=== PATIENT | female | born 1995 | race Caucasian/White ===

== ENCOUNTER 2020-10-13 21:15 | Inpatient (IN) | payer OTHER ==
[2020-10-13] MEDS ORDERED: SODIUM CHLORIDE 0.9% 1000 ML 1,000 ML IV ONE (21:34)
--- NOTE | 2020-10-13 21:52 | Emergency Department Report ---
HPI - General Chief Complaint: Altered Mental Status Time Seen by Provider: 10/13/20 21:22 - HPI HPI: This is a 25-year-old female who presents to the emergency department via EMS from home after the patient ingested about 6 ounces of 100% ethylene glycol at around 7 PM this evening. The patient is confused, AAO x1, and therefore a poor historian. Per EMS, the patient took this substance with the intent on harming herself. The patient is unknown to myself and has been to this emergency department only 1 time previously, not for anything related to mental health. Apparently the patient does not have any past medical history. At the time of my examination the patient has moderate tachycardia at 135 bpm but otherwise has no complaints. ED Past Medical Hx - Past Medical History Additional medical history: major depression - Social History Smoking Status: Unknown if ever smoked Substance Use Type: Alcohol - Medications Home Medications: Home Medications Medication Instructions Recorded Confirmed Last Taken Type Cefuroxime Axetil [Ceftin] 500 mg PO Q12H #20 tablet 06/29/13 Unknown Rx Phenazopyridine [Pyridium] 200 mg PO TID #6 tablet 06/29/13 Unknown Rx ED Review of Systems ROS: Stated complaint: SI Other details as noted in HPI Comment: Unobtainable due to pts medical conditions Physical Exam - Physical Exam Vital Signs: Vital Signs 10/13/20 10/13/20 21:22 21:34 Temperature 98.6 F Pulse Rate 136 H Respiratory 18 18 Rate Blood Pressure 157/102 O2 Sat by Pulse 98 Oximetry Physical Exam: GENERAL: The patient is pleasantly confused. HENT: Normocephalic. Atraumatic. Patient has moist mucous membranes. EYES: Extraocular motions are intact. Pupils equal reactive to light bilaterally. NECK: Supple. Trachea is midline. CHEST/LUNGS: Clear to auscultation. There is no respiratory distress noted. HEART/CARDIOVASCULAR: Regular. There is moderate tachycardia. There is no murmur. ABDOMEN: Abdomen is soft, nontender. Patient has normal bowel sounds. There is no abdominal distention. SKIN: Skin is warm and dry. NEURO: The patient is awake and confused, AAO x1 to name only. Cranial nerves II through XII grossly intact. Normal speech. MUSCULOSKELETAL: There is no tenderness or deformity. There is no limitation range of motion. PSYCH: Patient has inappropriate laughter. Oftentimes she is repeating herself. ED Course Vital Signs 10/13/20 06 21:22 21:34 Temperature 98.6 F Pulse Rate 136 H Respiratory 18 18 Rate Blood Pressure 157/102 O2 Sat by Pulse 98 Oximetry - Consultations Consultation #1: 10/13/20 21:50 I spoke with poison control regarding the ethylene glycol ingestion. The instructions given were under the guidance of the garment worker on-call, Dr. Yon Mccall. Above and beyond the normal psychiatric clearance and normal toxicology labs, they have recommended that the patient get an ABG, osmolality, and ethylene glycol level on top of the ethanol level. They have recommended that the patient start receiving fomepizole. The initial dose is 15 mg/kg and 100 mL of normal saline given over 30 minutes. 12 hours later the patient goes on a dose of 10 mg/kg also and 100 mL of normal saline over 30 minutes and this is done every 12 hours x 4 doses. After this time the patient goes back to 15 mg/kg every 12 hours. This goes on until the ethylene glycol level is less than 20 mg/dL. They recommend drawing the ethylene glycol once per day. 10/14/20 00:17 I called back to speak to Dr. Mccall at poison control once I got the laboratory results including ABG. The patient has a pH of 6.984, PCO2 of 10.5 and a bicarb of 2. She has a metabolic acidosis with an anion gap of 35. The patient has been ordered an amp of bicarb and a bicarb drip. Dr. Mccall feels that the patient will require dialysis. Apparently the first 12 hours is the "intoxication phase" and hours 12 through 24-hour when these patients go into "shock." If the patient receives dialysis, the next doses of omeprazole at the 10 mg/kg go down to every 4 hours x 4 doses, before moving back to the 50 mg/kg dose. Consultation #2: 10/14/20 00:31 I spoke to the aprn on-call, Dr. Riggins. He agrees that the patient will need dialysis due to the profound acidosis from the ethylene glycol poisoning/toxicity. He will place dialysis orders to be done as soon as the patient can receive a Vas-Cath. Consultation #3: 10/14/20 01:54 I spoke to the coal feeder operator on-call, Dr. Burris. We discussed the patient's presentation and her initial ABG and we discussed the need for a Vas-Cath placement for emergent dialysis. He asked for a repeat ABG. The second ABG shows some improvement in the acidosis but still shows profound acidosis with a pH of 7.09. No change in the PCO2, bicarb or PO2. Dr. Burris is coming into the emergency department for Vas-Cath placement. - ABG Interpretation Ph: 6.984 PCO2: 10.5 PO2: 131 Bicarbonate: 2.4 ED Medical Decision Making - Lab Data Result diagrams: 10/13/20 21:40 10/13/20 21:40 Lab Results 10/13/20 10/13/20 10/13/20 Range/Units 21:40 21:40 21:40 WBC 22.1 H (4.5-11.0) K/mm3 RBC 5.31 H (3.65-5.03) M/mm3 Hgb 16.3 H (10.1-14.3) gm/dl Hct 51.5 H (30.3-42.9) % MCV 97 (79-97) fl MCH 31 (28-32) pg MCHC 32 (30-34) % RDW 14.3 (13.2-15.2) % Plt Count 496 H (140-440) K/mm3 Add Manual Diff Complete Total Counted 100 Seg Neuts % (Manual) 68.0 (40.0-70.0) % Lymphocytes % (Manual) 23.0 (13.4-35.0) % Monocytes % (Manual) 9.0 H (0.0-7.3) % Nucleated RBC % Not Reportable Seg Neutrophils # Man 15.0 H (1.8-7.7) K/mm3 Band Neutrophils # 0.0 K/mm3 Lymphocytes # (Manual) 5.1 (1.2-5.4) K/mm3 Abs React Lymphs (Man) 0.0 K/mm3 Monocytes # (Manual) 2.0 H (0.0-0.8) K/mm3 Eosinophils # (Manual) 0.0 (0.0-0.4) K/mm3 Basophils # (Manual) 0.0 (0.0-0.1) K/mm3 Metamyelocytes # 0.0 K/mm3 Myelocytes # 0.0 K/mm3 Promyelocytes # 0.0 K/mm3 Blast Cells # 0.0 K/mm3 WBC Morphology Not Reportable Hypersegmented Neuts Not Reportable Hyposegmented Neuts Not Reportable Hypogranular Neuts Not Reportable Smudge Cells Not Reportable Toxic Granulation Not Reportable Toxic Vacuolation Not Reportable Dohle Bodies Not Reportable Pelger-Huet Anomaly Not Reportable Benjy Rods Not Reportable Platelet Estimate Not Reportable Clumped Platelets Not Reportable Plt Clumps, EDTA Not Reportable Large Platelets Not Reportable Giant Platelets Not Reportable Platelet Satelliting Not Reportable Plt Morphology Comment Not Reportable RBC Morphology Normal Dimorphic RBCs Not Reportable Polychromasia Not Reportable Hypochromasia Not Reportable Poikilocytosis Not Reportable Anisocytosis Not Reportable Microcytosis Not Reportable Macrocytosis Not Reportable Spherocytes Not Reportable Pappenheimer Bodies Not Reportable Sickle Cells Not Reportable Target Cells Not Reportable Tear Drop Cells Not Reportable Ovalocytes Not Reportable Helmet Cells Not Reportable [place] Bodies Not Reportable [place] Rings Not Reportable Raissa Cells Not Reportable Bite Cells Not Reportable Crenated Cell Not Reportable Elliptocytes Not Reportable Acanthocytes (Spur) Not Reportable Rouleaux Not Reportable Hemoglobin C Crystals Not Reportable Schistocytes Not Reportable Malaria parasites Not Reportable Koffi Bodies Not Reportable Hem Pathologist Commnt No ABG pH (7.320-7.450) POC ABG pCO2 (32.0-48.0) mmHg POC ABG pO2 (83-108) mmHg POC ABG HCO3 ABG O2 Saturation (0-100) POC ABG Base Excess ABG Hemoglobin (12.0-17.5) ABG Oxyhemoglobin (94-98) ABG Methemoglobin (0.0-1.5) ABG Sodium (136.0-145.0) mmol/L ABG Potassium (3.40-4.50) mmol/L ABG Chloride (98-107) mmol/L ABG Glucose (65-95) mg/dL Carboxyhemoglobin (0.5-1.5) FiO2 % Sodium (137-145) mmol/L Potassium (3.6-5.0) mmol/L Chloride (98-107) mmol/L Carbon Dioxide (22-30) mmol/L Anion Gap mmol/L BUN (7-17) mg/dL Creatinine (0.6-1.2) mg/dL Estimated GFR ml/min BUN/Creatinine Ratio % Glucose (65-100) mg/dL Osmolality Mosm/kg Calcium (8.4-10.2) mg/dL Total Bilirubin (0.1-1.2) mg/dL AST (5-40) units/L ALT (7-56) units/L Alkaline Phosphatase (35-129) units/L Total Protein (6.3-8.2) g/dL Albumin (3.9-5) g/dL Albumin/Globulin Ratio % HCG, Qual (Negative) Arterial Blood Glucose (65-95) mg/dL Arterial Blood Ionized Calcium (4.6-5.3) mg/dL Salicylates < 0.3 L (2.8-20.0) mg/dL Acetaminophen 5.0 L (10.0-30.0) ug/mL Plasma/Serum Alcohol (0-0.07) % 10/13/20 10/13/20 10/13/20 Range/Units 21:40 21:40 21:40 WBC (4.5-11.0) K/mm3 RBC (3.65-5.03) M/mm3 Hgb (10.1-14.3) gm/dl Hct (30.3-42.9) % MCV (79-97) fl MCH (28-32) pg MCHC (30-34) % RDW (13.2-15.2) % Plt Count (140-440) K/mm3 Add Manual Diff Total Counted Seg Neuts % (Manual) (40.0-70.0) % Lymphocytes % (Manual) (13.4-35.0) % Monocytes % (Manual) (0.0-7.3) % Nucleated RBC % Seg Neutrophils # Man (1.8-7.7) K/mm3 Band Neutrophils # K/mm3 Lymphocytes # (Manual) (1.2-5.4) K/mm3 Abs React Lymphs (Man) K/mm3 Monocytes # (Manual) (0.0-0.8) K/mm3 Eosinophils # (Manual) (0.0-0.4) K/mm3 Basophils # (Manual) (0.0-0.1) K/mm3 Metamyelocytes # K/mm3 Myelocytes # K/mm3 Promyelocytes # K/mm3 Blast Cells # K/mm3 WBC Morphology Hypersegmented Neuts Hyposegmented Neuts Hypogranular Neuts Smudge Cells Toxic Granulation Toxic Vacuolation Dohle Bodies Pelger-Huet Anomaly Benjy Rods Platelet Estimate Clumped Platelets Plt Clumps, EDTA Large Platelets Giant Platelets Platelet Satelliting Plt Morphology Comment RBC Morphology Dimorphic RBCs Polychromasia Hypochromasia Poikilocytosis Anisocytosis Microcytosis Macrocytosis Spherocytes Pappenheimer Bodies Sickle Cells Target Cells Tear Drop Cells Ovalocytes Helmet Cells Je[place] Bodies [place] Rings Raissa Cells Bite Cells Crenated Cell Elliptocytes Acanthocytes (Spur) Rouleaux Hemoglobin C Crystals Schistocytes Malaria parasites Koffi Bodies Hem Pathologist Commnt ABG pH (7.320-7.450) POC ABG pCO2 (32.0-48.0) mmHg POC ABG pO2 (83-108) mmHg POC ABG HCO3 ABG O2 Saturation (0-100) POC ABG Base Excess ABG Hemoglobin (12.0-17.5) ABG Oxyhemoglobin (94-98) ABG Methemoglobin (0.0-1.5) ABG Sodium (136.0-145.0) mmol/L ABG Potassium (3.40-4.50) mmol/L ABG Chloride (98-107) mmol/L ABG Glucose (65-95) mg/dL Carboxyhemoglobin (0.5-1.5) FiO2 % Sodium 137 (137-145) mmol/L Potassium 5.6 H (3.6-5.0) mmol/L Chloride 105.3 (98-107) mmol/L Carbon Dioxide < 2.0 L* (22-30) mmol/L Anion Gap 35 mmol/L BUN 4 L (7-17) mg/dL Creatinine 0.8 (0.6-1.2) mg/dL Estimated GFR > 60 ml/min BUN/Creatinine Ratio 5 % Glucose 93 (65-100) mg/dL Osmolality Mosm/kg Calcium 9.9 (8.4-10.2) mg/dL Total Bilirubin < 0.20 (0.1-1.2) mg/dL AST 19 (5-40) units/L ALT 11 (7-56) units/L Alkaline Phosphatase 99 (35-129) units/L Total Protein 9.1 H (6.3-8.2) g/dL Albumin 5.8 H (3.9-5) g/dL Albumin/Globulin Ratio 1.8 % HCG, Qual Negative (Negative) Arterial Blood Glucose (65-95) mg/dL Arterial Blood Ionized Calcium (4.6-5.3) mg/dL Salicylates (2.8-20.0) mg/dL Acetaminophen (10.0-30.0) ug/mL Plasma/Serum Alcohol < 0.01 (0-0.07) % 10/13/20 10/13/20 Range/Units 21:46 22:07 WBC (4.5-11.0) K/mm3 RBC (3.65-5.03) M/mm3 Hgb (10.1-14.3) gm/dl Hct (30.3-42.9) % MCV (79-97) fl MCH (28-32) pg MCHC (30-34) % RDW (13.2-15.2) % Plt Count (140-440) K/mm3 Add Manual Diff Total Counted Seg Neuts % (Manual) (40.0-70.0) % Lymphocytes % (Manual) (13.4-35.0) % Monocytes % (Manual) (0.0-7.3) % Nucleated RBC % Seg Neutrophils # Man (1.8-7.7) K/mm3 Band Neutrophils # K/mm3 Lymphocytes # (Manual) (1.2-5.4) K/mm3 Abs React Lymphs (Man) K/mm3 Monocytes # (Manual) (0.0-0.8) K/mm3 Eosinophils # (Manual) (0.0-0.4) K/mm3 Basophils # (Manual) (0.0-0.1) K/mm3 Metamyelocytes # K/mm3 Myelocytes # K/mm3 Promyelocytes # K/mm3 Blast Cells # K/mm3 WBC Morphology Hypersegmented Neuts Hyposegmented Neuts Hypogranular Neuts Smudge Cells Toxic Granulation Toxic Vacuolation Dohle Bodies Pelger-Huet Anomaly Benjy Rods Platelet Estimate Clumped Platelets Plt Clumps, EDTA Large Platelets Giant Platelets Platelet Satelliting Plt Morphology Comment RBC Morphology Dimorphic RBCs Polychromasia Hypochromasia Poikilocytosis Anisocytosis Microcytosis Macrocytosis Spherocytes Pappenheimer Bodies Sickle Cells Target Cells Tear Drop Cells Ovalocytes Helmet Cells Jeong-[place] Bodies [place] Rings Raissa Cells Bite Cells Crenated Cell Elliptocytes Acanthocytes (Spur) Rouleaux Hemoglobin C Crystals Schistocytes Malaria parasites Koffi Bodies Hem Pathologist Commnt ABG pH 6.984 L (7.320-7.450) POC ABG pCO2 10.5 L (32.0-48.0) mmHg POC ABG pO2 131.9 H (83-108) mmHg POC ABG HCO3 2.4 ABG O2 Saturation 98.1 (0-100) POC ABG Base Excess -27.2 ABG Hemoglobin 15.8 (12.0-17.5) ABG Oxyhemoglobin 97.5 (94-98) ABG Methemoglobin 0.2 (0.0-1.5) ABG Sodium 142.3 (136.0-145.0) mmol/L ABG Potassium 5.4 H (3.40-4.50) mmol/L ABG Chloride 114.0 H (98-107) mmol/L ABG Glucose 97 H (65-95) mg/dL Carboxyhemoglobin 0.4 L (0.5-1.5) FiO2 % 21.0 Sodium (137-145) mmol/L Potassium (3.6-5.0) mmol/L Chloride (98-107) mmol/L Carbon Dioxide (22-30) mmol/L Anion Gap mmol/L BUN (7-17) mg/dL Creatinine (0.6-1.2) mg/dL Estimated GFR ml/min BUN/Creatinine Ratio % Glucose (65-100) mg/dL Osmolality 320 Mosm/kg Calcium (8.4-10.2) mg/dL Total Bilirubin (0.1-1.2) mg/dL AST (5-40) units/L ALT (7-56) units/L Alkaline Phosphatase (35-129) units/L Total Protein (6.3-8.2) g/dL Albumin (3.9-5) g/dL Albumin/Globulin Ratio % HCG, Qual (Negative) Arterial Blood Glucose 97 H (65-95) mg/dL Arterial Blood Ionized Calcium 5.3 (4.6-5.3) mg/dL Salicylates (2.8-20.0) mg/dL Acetaminophen (10.0-30.0) ug/mL Plasma/Serum Alcohol (0-0.07) % - EKG Data -: EKG Interpreted by Me EKG shows normal: sinus rhythm, axis, intervals, QRS complexes, ST-T waves Rate: tachycardia (136 bpm) - EKG Data When compared to previous EKG there are: previous EKG unavailable Interpretation: other (Sinus tachycardia at 136 bpm, normal axis, normal intervals, no ST elevation myocardial infarction.) - Medical Decision Making This patient presents to the emergency department after she intentionally drank about 6 ounces of 100% ethylene glycol. For this reason the patient has been made a 1013 and placed on an ED hold. Soon as the patient arrived in the emergency department and I found out what she had consumed, I spoke with poison control. Their recommendations are in the chart and the patient was started on fomepizole. Labs show a leukocytosis of 22,000 and hyperkalemia with a potassium of 5.6. The patient has a bicarb level of 2 and an elevated anion gap of 35. The initial ABG shows a significant metabolic acidosis with a pH of 6.98 and a bicarb of 2. The patient was given an amp of sodium bicarbonate followed by a bicarb drip. Once I got the lab results back, I once again spoke with poison control and directly with the garment worker. The decision was made that the patient should get dialysis secondary to the profound metabolic acidosis. Nephrology was contacted and consulted. The coal feeder operator came into the emergency department and placed a Vas-Cath. The patient is being sent for emergent dialysis. She will be admitted to the ICU and was accepted for admission by the hospitalist, Dr. Ferguson. Critical Care Time: Yes Critical care time in (mins) excluding proc time.: 120 Critical care attestation.: If time is entered above; I have spent that time in minutes in the direct care of this critically ill patient, excluding procedure time. Critical care time was spent on this patient in doing her initial evaluation, multiple ree valuations, ordering and interpretation of labs and imaging, discussion with poison control and the garment worker, ordering of fomepizole as the antidote, sodium bicarbonate drip for the profound metabolic acidosis, discussion with the nephrology and ICU services. Critical Care Time: 120 minutes ED Disposition Clinical Impression: Metabolic acidosis due to ethylene glycol, Hyperkalemia, Metabolic encephalopathy Ethylene glycol poisoning Qualifiers: Encounter type: initial encounter Injury intent: intentional self-harm Qualified Code(s): T52.8X2A - Toxic effect of other organic solvents, intentional self-harm, initial encounter Overdose Qualifiers: Encounter type: initial encounter Injury intent: intentional self-harm Qualified Code(s): T50.902A - Poisoning by unspecified drugs, medicaments and biological substances, intentional self-harm, initial encounter Disposition: DC-09 OP ADMIT IP TO THIS HOSP Is pt being admited?: Yes Condition: Serious Time of Disposition: 23:42
[2020-10-13 21:55] LABS: Hematocrit 51.5 % (30.3-42.9); Hemoglobin 16.3 gm/dl (10.1-14.3); Mean Corpuscular HGB Conc 32 % (30-34); Mean Corpuscular Volume 97 fl (79-97); Platelet Count 496 K/mm3 (140-440); Red Blood Count 5.31 M/mm3 (3.65-5.03); Red Cell Distribution Width 14.3 % (13.2-15.2)
[2020-10-13] MEDS ORDERED: SODIUM CHLORIDE 0.9% IV ONE (22:00)
[2020-10-13] MEDS ORDERED: FOMEPIZOLEV IV ONE (22:00)
[2020-10-13 22:14] LABS: Alanine Aminotransferase 11 units/L (7-56); Albumin 5.8 g/dL (3.9-5); BUN/Creatinine Ratio 5; Blood Urea Nitrogen 4 mg/dL (7-17); Calcium 9.9 mg/dL (8.4-10.2); Hemolysis Index 17
[2020-10-13 23:19] LABS: Total Cells Counted 100
[2020-10-13 23:20] LABS: RBC Morphology Normal
[2020-10-13] MEDS ORDERED: SODIUM BICARBONATE 150 MEQ in DEXTROSE 5% IN WATER 1,000 ML IV ONE (23:33)
[2020-10-13] MEDS ORDERED: SODIUM BICARB 8.4% 50 MEQ/50 ML SYRINGE IV ONE (23:54)
[2020-10-14] MEDS ORDERED: SODIUM CHLORIDE 0.9% 100 ML IV PRN (00:31)
--- NOTE | 2020-10-14 00:40 | History and Physical Report ---
History of Present Illness Date of examination: 10/14/20 Date of admission: 10/13/20 23:42 Chief complaint: Altered mental status Drug overdose History of present illness: 25-year-old female with no significant past medical history was brought to the emergency room because patient ingested about 6 ounces of 100% ethylene glycol at around 7 PM this evening. The patient is confused, AAO x1, and therefore a poor historian. Per EMS, the patient took this substance with the intent on harming herself. The patient is unknown to myself and has been to this emergen cy department only 1 time previously, not for anything related to mental health. Apparently the patient does not have any past medical history. At the time of my examination the patient has moderate tachycardia at 135 bpm but otherwise has no complaints. Medications and Allergies Allergies Allergy/AdvReac Type Severity Reaction Status Date / Time No Known Allergies Allergy Unverified 06/29/13 00:00 Home Medications Medication Instructions Recorded Confirmed Last Taken Type Cefuroxime Axetil [Ceftin] 500 mg PO Q12H #20 tablet 06/29/13 Unknown Rx Phenazopyridine [Pyridium] 200 mg PO TID #6 tablet 06/29/13 Unknown Rx Active Meds: Active Medications Acetaminophen (Acetaminophen 325 Mg Tab) 650 mg PO Q4H PRN PRN Reason: Pain MILD(1-3)/Fever >100.5/TAYLOR Famotidine (Famotidine 20 Mg/2 Ml Inj) 20 mg IV BID MINH Heparin Sodium (Porcine) (Heparin 5,000 Unit/1 Ml Vial) 5,000 unit SUB-Q Q8HR MINH Sodium Chloride (Nacl 0.9% 1000 Ml) 1,000 mls @ 125 mls/hr IV ONCE ONE Stop: 10/14/20 05:33 Last Admin: 10/13/20 22:03 Dose: 125 mls/hr Documented by: Fomepizole 720 mg/ Sodium (Chloride) 100.72 mls @ 200 mls/hr IV Q12H MINH Stop: 10/15/20 23:31 Sodium Bicarbonate 150 meq/ (Dextrose) 1,150 mls @ 75 mls/hr IV DIRECT ONE Stop: 10/14/20 14:52 Sodium Chloride (Nacl 0.9%) 100 mls @ 999 mls/hr IV PHANI PRN PRN Reason: Hypotension Dextrose/Sodium Chloride (D5ns) 1,000 mls @ 100 mls/hr IV DIRECT MINH Ceftriaxone Sodium (Rocephin/Ns 2 Gm/100 Ml) 2 gm in 100 mls @ 200 mls/hr IV Q24H [facility]; Protocol Ondansetron HCl (Ondansetron 4 Mg/2 Ml Inj) 4 mg IV Q8H PRN PRN Reason: Nausea And Vomiting Sodium Chloride (Sodium Chloride 0.9% 10 Ml Flush Syringe) 10 ml IV BID MINH Sodium Chloride (Sodium Chloride 0.9% 10 Ml Flush Syringe) 10 ml IV PRN PRN PRN Reason: LINE FLUSH Review of Systems Neurological: confusion Exam - Constitutional Vitals: Temp Pulse Resp BP Pulse Ox 98.6 F 136 H 18 157/102 98 10/13/20 21:22 10/13/20 21:22 10/13/20 21:34 10/13/20 21:22 10/13/20 21:22 General appearance: Present: no acute distress, well-nourished - EENT Eyes: Present: PERRL ENT: hearing intact, clear oral mucosa - Neck Neck: Present: supple, normal ROM - Respiratory Respiratory effort: normal Respiratory: bilateral: CTA - Cardiovascular Heart Sounds: Present: S1 & S2. Absent: rub, click - Extremities Extremities: pulses symmetrical, No edema Peripheral Pulses: within normal limits - Abdominal General gastrointestinal: Present: soft, non-tender, non-distended, normal bowel sounds Female genitourinary: Present: normal - Integumentary Integumentary: Present: clear, warm, dry - Musculoskeletal Musculoskeletal: gait normal, strength equal bilaterally - Neurologic Neurologic: CNII-XII intact, moves all extremities, other (Patient is confused but awake) Results - Labs CBC & Chem 7: 10/13/20 21:40 10/13/20 21:40 Labs: Laboratory Last Values WBC 22.1 K/mm3 (4.5-11.0) H 10/13/20 21:40 RBC 5.31 M/mm3 (3.65-5.03) H 10/13/20 21:40 Hgb 16.3 gm/dl (10.1-14.3) H 10/13/20 21:40 Hct 51.5 % (30.3-42.9) H 10/13/20 21:40 MCV 97 fl (79-97) 10/13/20 21:40 MCH 31 pg (28-32) 10/13/20 21:40 MCHC 32 % (30-34) 10/13/20 21:40 RDW 14.3 % (13.2-15.2) 10/13/20 21:40 Plt Count 496 K/mm3 (140-440) H 10/13/20 21:40 Add Manual Diff Complete 10/13/20 21:40 Total Counted 100 10/13/20 21:40 Seg Neuts % (Manual) 68.0 % (40.0-70.0) 10/13/20 21:40 Lymphocytes % (Manual) 23.0 % (13.4-35.0) 10/13/20 21:40 Monocytes % (Manual) 9.0 % (0.0-7.3) H 10/13/20 21:40 Nucleated RBC % Not Reportable 10/13/20 21:40 Seg Neutrophils # Man 15.0 K/mm3 (1.8-7.7) H 10/13/20 21:40 Band Neutrophils # 0.0 K/mm3 10/13/20 21:40 Lymphocytes # (Manual) 5.1 K/mm3 (1.2-5.4) 10/13/20 21:40 Abs React Lymphs (Man) 0.0 K/mm3 10/13/20 21:40 Monocytes # (Manual) 2.0 K/mm3 (0.0-0.8) H 10/13/20 21:40 Eosinophils # (Manual) 0.0 K/mm3 (0.0-0.4) 10/13/20 21:40 Basophils # (Manual) 0.0 K/mm3 (0.0-0.1) 10/13/20 21:40 Metamyelocytes # 0.0 K/mm3 10/13/20 21:40 Myelocytes # 0.0 K/mm3 10/13/20 21:40 Promyelocytes # 0.0 K/mm3 10/13/20 21:40 Blast Cells # 0.0 K/mm3 10/13/20 21:40 WBC Morphology Not Reportable 10/13/20 21:40 Hypersegmented Neuts Not Reportable 10/13/20 21:40 Hyposegmented Neuts Not Reportable 10/13/20 21:40 Hypogranular Neuts Not Reportable 10/13/20 21:40 Smudge Cells Not Reportable 10/13/20 21:40 Toxic Granulation Not Reportable 10/13/20 21:40 Toxic Vacuolation Not Reportable 10/13/20 21:40 Dohle Bodies Not Reportable 10/13/20 21:40 Pelger-Huet Anomaly Not Reportable 10/13/20 21:40 Benjy Rods Not Reportable 10/13/20 21:40 Platelet Estimate Not Reportable 10/13/20 21:40 Clumped Platelets Not Reportable 10/13/20 21:40 Plt Clumps, EDTA Not Reportable 10/13/20 21:40 Large Platelets Not Reportable 10/13/20 21:40 Giant Platelets Not Reportable 10/13/20 21:40 Platelet Satelliting Not Reportable 10/13/20 21:40 Plt Morphology Comment Not Reportable 10/13/20 21:40 RBC Morphology Normal 10/13/20 21:40 Dimorphic RBCs Not Reportable 10/13/20 21:40 Polychromasia Not Reportable 10/13/20 21:40 Hypochromasia Not Reportable 10/13/20 21:40 Poikilocytosis Not Reportable 10/13/20 21:40 Anisocytosis Not Reportable 10/13/20 21:40 Microcytosis Not Reportable 10/13/20 21:40 Macrocytosis Not Reportable 10/13/20 21:40 Spherocytes Not Reportable 10/13/20 21:40 Pappenheimer Bodies Not Reportable 10/13/20 21:40 Sickle Cells Not Reportable 10/13/20 21:40 Target Cells Not Reportable 10/13/20 21:40 Tear Drop Cells Not Reportable 10/13/20 21:40 Ovalocytes Not Reportable 10/13/20 21:40 Helmet Cells Not Reportable 10/13/20 21:40 Jeong-[place] Bodies Not Reportable 10/13/20 21:40 Irwin Rings Not Reportable 10/13/20 21:40 Carlton Cells Not Reportable 10/13/20 21:40 Bite Cells Not Reportable 10/13/20 21:40 Crenated Cell Not Reportable 10/13/20 21:40 Elliptocytes Not Reportable 10/13/20 21:40 Acanthocytes (Spur) Not Reportable 10/13/20 21:40 Rouleaux Not Reportable 10/13/20 21:40 Hemoglobin C Crystals Not Reportable 10/13/20 21:40 Schistocytes Not Reportable 10/13/20 21:40 Malaria parasites Not Reportable 10/13/20 21:40 Koffi Bodies Not Reportable 10/13/20 21:40 Hem Pathologist Commnt No 10/13/20 21:40 ABG pH 6.984 (7.320-7.450) L 10/13/20 22:07 POC ABG pCO2 10.5 mmHg (32.0-48.0) L 10/13/20 22:07 POC ABG pO2 131.9 mmHg (83-108) H 10/13/20 22:07 POC ABG HCO3 2.4 10/13/20 22:07 ABG O2 Saturation 98.1 (0-100) 10/13/20 22:07 POC ABG Base Excess -27.2 10/13/20 22:07 ABG Hemoglobin 15.8 (12.0-17.5) 10/13/20 22:07 ABG Oxyhemoglobin 97.5 (94-98) 10/13/20 22:07 ABG Methemoglobin 0.2 (0.0-1.5) 10/13/20 22:07 ABG Sodium 142.3 mmol/L (136.0-145.0) 10/13/20 22:07 ABG Potassium 5.4 mmol/L (3.40-4.50) H 10/13/20 22:07 ABG Chloride 114.0 mmol/L (98-107) H 10/13/20 22:07 ABG Glucose 97 mg/dL (65-95) H 10/13/20 22:07 Carboxyhemoglobin 0.4 (0.5-1.5) L 10/13/20 22:07 FiO2 % 21.0 10/13/20 22:07 Sodium 137 mmol/L (137-145) 10/13/20 21:40 Potassium 5.6 mmol/L (3.6-5.0) H 10/13/20 21:40 Chloride 105.3 mmol/L (98-107) 10/13/20 21:40 Carbon Dioxide < 2.0 mmol/L (22-30) L* 10/13/20 21:40 Anion Gap 35 mmol/L 10/13/20 21:40 BUN 4 mg/dL (7-17) L 10/13/20 21:40 Creatinine 0.8 mg/dL (0.6-1.2) 10/13/20 21:40 Estimated GFR > 60 ml/min 10/13/20 21:40 BUN/Creatinine Ratio 5 % 10/13/20 21:40 Glucose 93 mg/dL (65-100) 10/13/20 21:40 Osmolality 320 Mosm/kg 10/13/20 21:46 Calcium 9.9 mg/dL (8.4-10.2) 10/13/20 21:40 Total Bilirubin < 0.20 mg/dL (0.1-1.2) 10/13/20 21:40 AST 19 units/L (5-40) 10/13/20 21:40 ALT 11 units/L (7-56) 10/13/20 21:40 Alkaline Phosphatase 99 units/L (35-129) 10/13/20 21:40 Total Protein 9.1 g/dL (6.3-8.2) H 10/13/20 21:40 Albumin 5.8 g/dL (3.9-5) H 10/13/20 21:40 Albumin/Globulin Ratio 1.8 % 10/13/20 21:40 HCG, Qual Negative (Negative) 10/13/20 21:40 Arterial Blood Glucose 97 mg/dL (65-95) H 10/13/20 22:07 Arterial Blood Ionized Calcium 5.3 mg/dL (4.6-5.3) 10/13/20 22:07 Salicylates < 0.3 mg/dL (2.8-20.0) L 10/13/20 21:40 Acetaminophen 5.0 ug/mL (10.0-30.0) L 10/13/20 21:40 Plasma/Serum Alcohol < 0.01 % (0-0.07) 10/13/20 21:40 Assessment and Plan VTE prophylaxis?: Chemical Plan of care discussed with patient/family: Yes - Patient Problems (1) Ethylene glycol poisoning Current Visit: Yes Status: Acute Plan to address problem: Admit the patient to the ICU. N.p.o. D5 normal saline at the rate of 100 cc/h. Emergency room doctor talked with poison control as per advise we will start the patient on fomepizole as per protocol. We also started on bicarb drip. Will consult critical care as well as nephrology for dialysis. We will recheck CBC CMP in the morning. (2) Metabolic acidosis due to ethylene glycol Current Visit: Yes Status: Acute Plan to address problem: N.p.o. D5 normal saline at the rate of 100 cc/h. Emergency room doctor talked with poison control as per advise we will start the patient on fomepizole as per protocol. We also started on bicarb drip. Will consult critical care as well as nephrology for dialysis. We will recheck CBC CMP in the morning. (3) Overdose Current Visit: Yes Status: Acute Plan to address problem: N.p.o. D5 normal saline at the rate of 100 cc/h. Emergency room doctor talked with poison control as per advise we will start the patient on fomepizole as per protocol. We also started on bicarb drip. Will consult critical care as well as nephrology for dialysis. We will recheck CBC CMP in the morning. (4) Hyperkalemia Current Visit: Yes Status: Acute Plan to address problem: Kayexalate 30 g p.o. x1 dose. Patient is on bicarb drip. We will recheck CBC CMP in the morning (5) Suicidal ideation Current Visit: Yes Status: Acute Plan to address problem: Patient is counseled. We also consult psych for evaluation (6) Leukocytosis Current Visit: Yes Status: Acute Plan to address problem: Rocephin 2 g IV daily for leukocytosis. We will do the blood culture. We will recheck the CBC in the morning (7) DVT prophylaxis Current Visit: Yes Status: Acute Plan to address problem: Heparin 5000 units subcu every 8 hours for DVT prophylaxis. Pepcid 20 mg IV every 12 hours for GI prophylaxis. Patient is a full code
[2020-10-14] MEDS ORDERED: SODIUM POLYSTYRENE 15 GM/60 ML ORAL LIQD PO ONE (00:47)
[2020-10-14] MEDS ORDERED: D5W/0.9% NACL 1,000 ML IV SCH (01:00)
[2020-10-14] MEDS: cefTRIAXone/NS 2 GM/100 ML 2 GM/100 ML BAG IV SCH ×2 (01:30→10:00)
[2020-10-14 01:43] LABS: ABG Base Excess -24.6 mmol/L (-2.0-3.0); ABG HCO3 2.4 mmol/L (20.0-26.0); ABG Methemoglobin 0.6 % (0.0-1.5); ABG Oxygen Saturation 97.8 % (95.0-99.0); ABG PCO2 8.1 mm Hg
[2020-10-14 01:48] LABS: ABG PH 7.096 pH Units (7.350-7.450)
[2020-10-14 02:39] LABS: Bacteria,Urine 2+ /HPF (Negative); Bilirubin,Urine NEG (Negative); Blood,Urine LG (Negative); Color,Urine Yellow (Yellow); Mucus,Urine FEW /HPF; Urobilinogen,Urine < 2.0 mg/dL (<2.0)
[2020-10-14 02:40] LABS: RBC,Urine > 182.0 /HPF (0.0-6.0)
[2020-10-14 02:42] LABS: Amphetamine Screen,Urine PRESUMPTIVE NEGATIVE; Benzodiazepines Screen,Urine PRESUMPTIVE NEGATIVE; Cannabinoid Screen,Urine PRESUMPTIVE NEGATIVE; Cocaine Screen,Urine PRESUMPTIVE NEGATIVE; Methadone Screen,Urine PRESUMPTIVE NEGATIVE; Opiate Screen,Urine PRESUMPTIVE NEGATIVE
[2020-10-14] MEDS ORDERED: fentaNYL 100 MCG/2 ML INJ IV ONE (02:48)
[2020-10-14] MEDS ORDERED: MIDAZOLAM 2 MG/2 ML INJ IV ONE (02:49)
[2020-10-14] MEDS ORDERED: MIDAZOLAM 5 MG/5 ML INJ MDV IV ONE (02:51)
--- NOTE | 2020-10-14 03:34 | Procedure Note ---
Date of procedure: 10/14/20 Pre-op diagnosis: Ethylene Glycol Toxicity Post-op diagnosis: same Procedure: Right Femoral Dialysis Catheter Emergent Procedure given severe metabolic acidosis. With Forensic Structural Engineer available in room, right femoral vein visualized and accessed using seldinger technique. A 15 cm Trialysis catheter was threaded over a wire and sutured in. Dressed by nursing with no immediate complications. No film needed as placed in groin. Anesthesia: local Surgeon: ASHLEE AMXWELL Estimated blood loss: none Pathology: none Condition: stable Disposition: ICU
--- NOTE | 2020-10-14 03:38 | Consultation ---
History of Present Illness - Reason for Consult Consult date: 10/14/20 Ethylene Glycol [facility] Requesting physician: BALBINA SEE - History of Present Illness 25 y/o [place] female admitted with ethylene glycol ingestion toxicity. Per patient she spiraled and tried to hurt herself. Per patient this is her first time doing this. Called by ED for catheter placement as HD was recommended by poison control. Past History Past Medical History: other (depression) Past Surgical History: No surgical history Social history: no significant social history Family history: no significant family history Medications and Allergies Allergies Allergy/AdvReac Type Severity Reaction Status Date / Time No Known Allergies Allergy Unverified 06/29/13 00:00 Home Medications Medication Instructions Recorded Confirmed Last Taken Type Cefuroxime Axetil [Ceftin] 500 mg PO Q12H #20 tablet 06/29/13 Unknown Rx Phenazopyridine [Pyridium] 200 mg PO TID #6 tablet 06/29/13 Unknown Rx Active Meds: Active Medications Acetaminophen (Acetaminophen 325 Mg Tab) 650 mg PO Q4H PRN PRN Reason: Pain MILD(1-3)/Fever >100.5/TAYLOR Famotidine (Famotidine 20 Mg/2 Ml Inj) 20 mg IV BID [facility] Heparin Sodium (Porcine) (Heparin 5,000 Unit/1 Ml Vial) 5,000 unit SUB-Q Q8HR [facility] Sodium Chloride (Nacl 0.9% 1000 Ml) 1,000 mls @ 125 mls/hr IV ONCE ONE Stop: 10/14/20 05:33 Last Admin: 10/13/20 22:03 Dose: 125 mls/hr Documented by: Fomepizole 720 mg/ Sodium (Chloride) 100.72 mls @ 200 mls/hr IV Q12H [facility] Stop: 10/15/20 23:31 Sodium Bicarbonate 150 meq/ (Dextrose) 1,150 mls @ 75 mls/hr IV DIRECT ONE Stop: 10/14/20 14:52 Last Admin: 10/14/20 01:29 Dose: 75 mls/hr Documented by: Sodium Chloride (Nacl 0.9%) 100 mls @ 999 mls/hr IV PHANI PRN PRN Reason: Hypotension Dextrose/Sodium Chloride (D5ns) 1,000 mls @ 100 mls/hr IV DIRECT [facility] Ceftriaxone Sodium (Rocephin/Ns 2 Gm/100 Ml) 2 gm in 100 mls @ 200 mls/hr IV Q24HR [facility]; Protocol Fomepizole 1,080 mg/ Sodium (Chloride) 101.08 mls @ 202.16 mls/hr IV Q12H [facility] Ondansetron HCl (Ondansetron 4 Mg/2 Ml Inj) 4 mg IV Q8H PRN PRN Reason: Nausea And Vomiting Sodium Chloride (Sodium Chloride 0.9% 10 Ml Flush Syringe) 10 ml IV BID MINH Sodium Chloride (Sodium Chloride 0.9% 10 Ml Flush Syringe) 10 ml IV PRN PRN PRN Reason: LINE FLUSH Review of Systems All systems: negative Exam - Constitutional Vitals: Temp Pulse Resp BP Pulse Ox 98.6 F 120 H 28 H 140/107 98 10/13/20 21:22 10/14/20 01:18 10/14/20 01:18 10/14/20 01:18 10/13/20 21:22 General appearance: Present: no acute distress, well-nourished - EENT Eyes: Present: PERRL, EOM intact ENT: hearing intact, clear oral mucosa, dentition normal - Neck Neck: Present: supple, normal ROM - Respiratory Respiratory effort: normal Respiratory: bilateral: CTA - Cardiovascular Rhythm: other (sinus tach) Heart Sounds: Present: S1 & S2 - Extremities Extremities: no ischemia, pulses intact - Abdominal General gastrointestinal: Present: soft, non-tender, normal bowel sounds Female genitourinary: Present: deferred - Rectal Rectal Exam: deferred - Integumentary Integumentary: Present: clear, warm, dry - Musculoskeletal Musculoskeletal: strength equal bilaterally Results - Labs CBC & Chem 7: 10/13/20 21:40 10/13/20 21:40 Labs: Abnormal lab results 10/13/20 10/13/20 10/13/20 Range/Units 21:40 21:40 21:40 WBC 22.1 H (4.5-11.0) K/mm3 RBC 5.31 H (3.65-5.03) M/mm3 Hgb 16.3 H (10.1-14.3) gm/dl Hct 51.5 H (30.3-42.9) % Plt Count 496 H (140-440) K/mm3 Monocytes % (Manual) 9.0 H (0.0-7.3) % Seg Neutrophils # Man 15.0 H (1.8-7.7) K/mm3 Monocytes # (Manual) 2.0 H (0.0-0.8) K/mm3 ABG pH (7.320-7.450) POC ABG pCO2 (32.0-48.0) mmHg POC ABG pO2 (83-108) mmHg ABG pO2 (80.0-90.0) mm Hg ABG HCO3 (20.0-26.0) mmol/L ABG Base Excess (-2.0-3.0) mmol/L ABG Potassium (3.40-4.50) mmol/L ABG Chloride (98-107) mmol/L ABG Glucose (65-95) mg/dL Carboxyhemoglobin (0.5-1.5) Potassium (3.6-5.0) mmol/L Carbon Dioxide (22-30) mmol/L BUN (7-17) mg/dL Total Protein (6.3-8.2) g/dL Albumin (3.9-5) g/dL Arterial Blood Glucose (65-95) mg/dL Salicylates < 0.3 L (2.8-20.0) mg/dL Acetaminophen 5.0 L (10.0-30.0) ug/mL 10/13/20 10/13/20 10/14/20 Range/Units 21:40 22:07 01:30 WBC (4.5-11.0) K/mm3 RBC (3.65-5.03) M/mm3 Hgb (10.1-14.3) gm/dl Hct (30.3-42.9) % Plt Count (140-440) K/mm3 Monocytes % (Manual) (0.0-7.3) % Seg Neutrophils # Man (1.8-7.7) K/mm3 Monocytes # (Manual) (0.0-0.8) K/mm3 ABG pH 6.984 L 7.096 L* (7.320-7.450) POC ABG pCO2 10.5 L (32.0-48.0) mmHg POC ABG pO2 131.9 H (83-108) mmHg ABG pO2 125.0 H (80.0-90.0) mm Hg ABG HCO3 2.4 L (20.0-26.0) mmol/L ABG Base Excess -24.6 L (-2.0-3.0) mmol/L ABG Potassium 5.4 H (3.40-4.50) mmol/L ABG Chloride 114.0 H (98-107) mmol/L ABG Glucose 97 H (65-95) mg/dL Carboxyhemoglobin 0.4 L (0.5-1.5) Potassium 5.6 H (3.6-5.0) mmol/L Carbon Dioxide < 2.0 L* (22-30) mmol/L BUN 4 L (7-17) mg/dL Total Protein 9.1 H (6.3-8.2) g/dL Albumin 5.8 H (3.9-5) g/dL Arterial Blood Glucose 97 H (65-95) mg/dL Salicylates (2.8-20.0) mg/dL Acetaminophen (10.0-30.0) ug/mL Assessment and Plan 1. HD now 2. Psych eval 3. Repeat ABG post HD 4. Agree with ICU admit.
[2020-10-14] MEDS: SODIUM CHLORIDE 0.9% IV SCH ×4 (06:00→17:41)
[2020-10-14] MEDS: FOMEPIZOLEV IV SCH ×4 (06:00→17:41)
[2020-10-14 07:04] LABS: Hepatitis B Surface Antigen Non-Reactive (Negative); Hepatitis C Virus Antibody Non-Reactive (NonReactive)
--- NOTE | 2020-10-14 09:36 | Consultation ---
History of Present Illness - Reason for Consult Consult date: 10/14/20 Reason for consult: MHE Requesting physician: TIFFANY BARBOUR - Chief Complaint Chief complaint: Altered mental status Drug overdose - History of Present Psychiatric Illness Per ED Provider: This is a 25-year-old female who presents to the emergency department via EMS from home after the patient ingested about 6 ounces of 100% ethylene glycol at around 7 PM this evening. The patient is confused, AAO x1, and therefore a poor historian. Per EMS, the patient took this substance with the intent on harming herself. The patient is unknown to myself and has been to this emergency department only 1 time previously, not for anything related to mental health. Apparently the patient does not have any past medical history. At the time of my examination the patient has moderate tachycardia at 135 bpm but otherwise has no complaints. PSYCH HPI Patient is a 25-year-old single, recently unemployed female with past psychiatric history of depression, PTSD, anxiety significant medical history who was brought to the emergency room after intentional overdose with ethylene glycol. Patient reports she has been going to depression and emotional stress, reports recently quitting her job over toxic environment but though she was making good money she did not realize how bad her decision was until she became an unemployed. Patient also reported that she has just moved out of her friend's house, still living by herself and the process was emotionally and physically draining, and denies any type of physical relationship abuse or concerns she is accompanied by her friend is very sweet but he does not understand her emotional status and that also stresses her. PAST PSYCHIATRIC HISTORY Diagnoses: Depression PTSD anxiety Suicide attempts or Self-harm behavior: Yes Prior psychiatric hospitalizations: Yes Substance Abuse history: Marijuana Previous psychiatric medications tried: Yes Outpatient treatment: PAST MEDICAL HISTORY: None report Family Psychiatric History: None reported or documented SOCIAL HISTORY Marital Status: Single Living Arrangements: With self Employment Status: Recently unemployed Access to guns/weapons: Education: BSC degree History of Abuse: None report Legal History: Findings are none reported REVIEW OF SYSTEMS Constitutional: Negative for weight loss ENT: Negative for stridor Respiratory: Negative for cough or hemoptysis All other systems reviewed and are negative MENTAL STATUS EXAMINATION General Appearance and Behavior: Age appropriate, good hygiene, wearing appropriate clothes,, good eye contact Cooperation: Participating/engaged, but Guarded Psychomotor Behavior: Psychomotor normal Mood: depressed Affect and affective range: irritable, labile Thought Process: illogical Thought Content: hopelessness, helplessness Speech: Normal rate, volume and rythm Intellectual Functioning: Average Suicidal Ideation: SI Homicidal Ideation: Denies HI Impulse Control: Impaired Insight and Judgment: Limited insight and judgment Memory: Normal Attention: Normal Orientation: Alert, oriented Assessment and Plan - Psychiatric problem (1) MDD (major depressive disorder) Current Visit: Yes Status: Acute Treatment Plan Hold off any oral medication intake at this moment MEDICATIONS: Risks, benefits and alternatives of medications discussed with the patient, questions answered and consent obtained from patient. PSYCHOTHERAPY: Supportive psychotherapy provided MEDICAL: Per primary team DELIRIUM PRECAUTIONS: Please re-orient patient frequently, keep lights on during the day, and minimize benzodiazepines and opiates as these medications could worsen patient's confusion. EMERGENCY WORKER: DISPOSITION: Do Recommend acute inpatient psychiatric hospitalization at this time. Case discussed with Dr. Kim who agrees with current disposition LEGAL STATUS: 1013 FOLLOW-UP: Will follow Thank you for the consult. Please contact with any questions and/or concerns. Medications and Allergies Allergies Allergy/AdvReac Type Severity Reaction Status Date / Time No Known Allergies Allergy Unverified 06/29/13 00:00 Home Medications Medication Instructions Recorded Confirmed Last Taken Type Cefuroxime Axetil [Ceftin] 500 mg PO Q12H #20 tablet 06/29/13 Unknown Rx Phenazopyridine [Pyridium] 200 mg PO TID #6 tablet 06/29/13 Unknown Rx Active Meds: Active Medications Acetaminophen (Acetaminophen 325 Mg Tab) 650 mg PO Q4H PRN PRN Reason: Pain MILD(1-3)/Fever >100.5/TAYLOR Famotidine (Famotidine 20 Mg/2 Ml Inj) 20 mg IV BID [facility] Heparin Sodium (Porcine) (Heparin 5,000 Unit/1 Ml Vial) 5,000 unit SUB-Q Q8HR [facility] Sodium Bicarbonate 150 meq/ (Dextrose) 1,150 mls @ 75 mls/hr IV DIRECT ONE Stop: 10/14/20 14:52 Last Admin: 10/14/20 01:29 Dose: 75 mls/hr Documented by: Sodium Chloride (Nacl 0.9%) 100 mls @ 999 mls/hr IV PHANI PRN PRN Reason: Hypotension Dextrose/Sodium Chloride (D5ns) 1,000 mls @ 100 mls/hr IV DIRECT [facility] Ceftriaxone Sodium (Rocephin/Ns 2 Gm/100 Ml) 2 gm in 100 mls @ 200 mls/hr IV Q24HR [facility]; Protocol Last Admin: 10/14/20 01:30 Dose: 200 mls/hr Documented by: Fomepizole 1,080 mg/ Sodium (Chloride) 101.08 mls @ 202.16 mls/hr IV Q12H [facility] Fomepizole 720 mg/ Sodium (Chloride) 100.72 mls @ 200 mls/hr IV Q4H [facility] Stop: 10/14/20 17:31 Last Admin: 10/14/20 06:00 Dose: 200 mls/hr Documented by: Ondansetron HCl (Ondansetron 4 Mg/2 Ml Inj) 4 mg IV Q8H PRN PRN Reason: Nausea And Vomiting Sodium Chloride (Sodium Chloride 0.9% 10 Ml Flush Syringe) 10 ml IV BID [facility] Sodium Chloride (Sodium Chloride 0.9% 10 Ml Flush Syringe) 10 ml IV PRN PRN PRN Reason: LINE FLUSH Mental Status Exam - Vital signs Last Vital Signs Temp 98.2 F 10/14/20 08:45 Pulse 98 H 10/14/20 09:27 Resp 12 10/14/20 09:27 BP 124/68 10/14/20 09:27 Pulse Ox 99 10/14/20 09:27 Results Result Diagrams: 10/14/20 10:03 10/14/20 10:03 Abnormal lab results 10/13/20 10/13/20 10/13/20 Range/Units 21:40 21:40 21:40 WBC 22.1 H (4.5-11.0) K/mm3 RBC 5.31 H (3.65-5.03) M/mm3 Hgb 16.3 H (10.1-14.3) gm/dl Hct 51.5 H (30.3-42.9) % Plt Count 496 H (140-440) K/mm3 Monocytes % (Manual) 9.0 H (0.0-7.3) % Seg Neutrophils # Man 15.0 H (1.8-7.7) K/mm3 Monocytes # (Manual) 2.0 H (0.0-0.8) K/mm3 ABG pH (7.320-7.450) POC ABG pCO2 (32.0-48.0) mmHg POC ABG pO2 (83-108) mmHg ABG pO2 (80.0-90.0) mm Hg ABG HCO3 (20.0-26.0) mmol/L ABG Base Excess (-2.0-3.0) mmol/L ABG Potassium (3.40-4.50) mmol/L ABG Chloride (98-107) mmol/L ABG Glucose (65-95) mg/dL Carboxyhemoglobin (0.5-1.5) Potassium (3.6-5.0) mmol/L Carbon Dioxide (22-30) mmol/L BUN (7-17) mg/dL Total Protein (6.3-8.2) g/dL Albumin (3.9-5) g/dL Arterial Blood Glucose (65-95) mg/dL Salicylates < 0.3 L (2.8-20.0) mg/dL Acetaminophen 5.0 L (10.0-30.0) ug/mL 10/13/20 10/13/20 10/14/20 Range/Units 21:40 22:07 01:30 WBC (4.5-11.0) K/mm3 RBC (3.65-5.03) M/mm3 Hgb (10.1-14.3) gm/dl Hct (30.3-42.9) % Plt Count (140-440) K/mm3 Monocytes % (Manual) (0.0-7.3) % Seg Neutrophils # Man (1.8-7.7) K/mm3 Monocytes # (Manual) (0.0-0.8) K/mm3 ABG pH 6.984 L 7.096 L* (7.320-7.450) POC ABG pCO2 10.5 L (32.0-48.0) mmHg POC ABG pO2 131.9 H (83-108) mmHg ABG pO2 125.0 H (80.0-90.0) mm Hg ABG HCO3 2.4 L (20.0-26.0) mmol/L ABG Base Excess -24.6 L (-2.0-3.0) mmol/L ABG Potassium 5.4 H (3.40-4.50) mmol/L ABG Chloride 114.0 H (98-107) mmol/L ABG Glucose 97 H (65-95) mg/dL Carboxyhemoglobin 0.4 L (0.5-1.5) Potassium 5.6 H (3.6-5.0) mmol/L Carbon Dioxide < 2.0 L* (22-30) mmol/L BUN 4 L (7-17) mg/dL Total Protein 9.1 H (6.3-8.2) g/dL Albumin 5.8 H (3.9-5) g/dL Arterial Blood Glucose 97 H (65-95) mg/dL Salicylates (2.8-20.0) mg/dL Acetaminophen (10.0-30.0) ug/mL All other labs normal. Assessment and Plan - Psychiatric problem (1) MDD (major depressive disorder) Current Visit: Yes Status: Acute
[2020-10-14] MEDS: HEPARIN 5,000 UNIT/1 ML VIAL SUB-Q SCH ×3 (09:37→22:15)
[2020-10-14] MEDS: FAMOTIDINE 20 MG/2 ML INJ IV SCH ×2 (10:21→22:15)
[2020-10-14 10:42] LABS: Hemoglobin 12.6 gm/dl (10.1-14.3); Mean Corpuscular HGB Conc 33 % (30-34); Mean Corpuscular Volume 91 fl (79-97); Platelet Count 296 K/mm3 (140-440); Red Blood Count 4.16 M/mm3 (3.65-5.03); Red Cell Distribution Width 13.7 % (13.2-15.2)
[2020-10-14] MEDS: LACTATED RINGERS 1,000 ML IV SCH ×3 (10:53→13:05)
[2020-10-14] MEDS ORDERED: SODIUM CHLORIDE 0.9% IV SCH (11:00)
[2020-10-14] MEDS ORDERED: FOMEPIZOLEV IV SCH (11:00)
[2020-10-14 11:01] LABS: Calcium 8.6 mg/dL (8.4-10.2)
--- NOTE | 2020-10-14 11:23 | Consultation ---
History of Present Illness - Reason for Consult Consult date: 10/14/20 metabolic acidosis Requesting physician: BALBINA SEE - History of Present Illness 25-year-old lady with no significant medical problems who ingested about 6 ounces of ethylene glycol with the intention of committing suicide. She has suscide once in the past by breaking a mirror which cut her arm in 2019. She has a history of depression and was on 3 antidepressants but has not been able to afford them since she lost her insurance since she stopped working during the pandemic. On presentation, her bicarb was less than 2, potassium was high at 5.6 mmol/L. Kidney function normal. White blood cell was also elevated at 22,000. My colleague Dr. Riggins was called last night and initiated dialysis. Patient was also started on fomepizole and bicarbonate drip. Past History Past Medical History: other (Anxiety/depression, insomnia) Past Surgical History: No surgical history Social history: no significant social history, alcohol abuse (Drinks alcohol but not regularly only weekends.), other (Soft smokes marijuana sometimes. 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 She lives with her boyfriend and his parents). denies: smoking (Quit smoking about a year ago) Family history: no significant family history, other (Mother has bipolar disord er. Sisters both have anxiety and depression.) Medications and Allergies Allergies Allergy/AdvReac Type Severity Reaction Status Date / Time No Known Allergies Allergy Unverified 06/29/13 00:00 Home Medications Medication Instructions Recorded Confirmed Last Taken Type Eszopiclone [Lunesta] 2 mg PO DAILY 10/14/20 10/14/20 2 Weeks Ago History ~09/30/20 Lexapro 7.5 mg PO DAILY 10/14/20 10/14/20 2 Weeks Ago History ~09/30/20 Remeron 10 mg PO DAILY 10/14/20 10/14/20 2 Weeks Ago History ~09/30/20 Active Meds: Active Medications Acetaminophen (Acetaminophen 325 Mg Tab) 650 mg PO Q4H PRN PRN Reason: Pain MILD(1-3)/Fever >100.5/TAYLOR Famotidine (Famotidine 20 Mg/2 Ml Inj) 20 mg IV BID [facility] Last Admin: 10/14/20 10:21 Dose: 20 mg Documented by: Heparin Sodium (Porcine) (Heparin 5,000 Unit/1 Ml Vial) 5,000 unit SUB-Q Q8HR [facility] Last Admin: 10/14/20 09:37 Dose: 5,000 unit Documented by: Sodium Bicarbonate 150 meq/ (Dextrose) 1,150 mls @ 75 mls/hr IV DIRECT ONE Stop: 10/14/20 14:52 Last Admin: 10/14/20 01:29 Dose: 75 mls/hr Documented by: Sodium Chloride (Nacl 0.9%) 100 mls @ 999 mls/hr IV PHANI PRN PRN Reason: Hypotension Dextrose/Sodium Chloride (D5ns) 1,000 mls @ 100 mls/hr IV DIRECT [facility] Ceftriaxone Sodium (Rocephin/Ns 2 Gm/100 Ml) 2 gm in 100 mls @ 200 mls/hr IV Q24HR [facility]; Protocol Last Admin: 10/14/20 01:30 Dose: 200 mls/hr Documented by: Fomepizole 1,080 mg/ Sodium (Chloride) 101.08 mls @ 202.16 mls/hr IV Q12H [facility] Fomepizole 720 mg/ Sodium (Chloride) 100.72 mls @ 200 mls/hr IV Q4H [facility] Stop: 10/14/20 17:31 Last Admin: 10/14/20 10:21 Dose: 200 mls/hr Documented by: Lactated Ringer's (Lactated Ringers) 1,000 mls @ 999 mls/hr IV Q1H [facility] Stop: 10/14/20 13:44 Last Admin: 10/14/20 10:53 Dose: 999 mls/hr Documented by: Ondansetron HCl (Ondansetron 4 Mg/2 Ml Inj) 4 mg IV Q8H PRN PRN Reason: Nausea And Vomiting Sodium Chloride (Sodium Chloride 0.9% 10 Ml Flush Syringe) 10 ml IV BID [facility] Sodium Chloride (Sodium Chloride 0.9% 10 Ml Flush Syringe) 10 ml IV PRN PRN PRN Reason: LINE FLUSH Review of Systems All systems: negative (Constitutional: no fever or chills. No anorexia or weight loss. HEENT: No sore throat or sinus drainage no hearing or vision impairment . Cardiovascular: No chest pain, shortness of breath, palpitations, lower extremity swelling or dizziness. Respiratory: Admits to cough, No sputum, SOB) Gastrointestinal: nausea, no abdominal pain, no vomiting, no diarrhea, no constipation Musculoskeletal: no neck pain, no low back pain, no morning stiffness Integumentary: pruritis, no rash, no lesions Neurological: headaches, no numbness, no tingling, no vertigo Psychiatric: anxiety, depression Exam - Vital Signs Vital signs: Vital Signs Temp Pulse Resp BP Pulse Ox 98.6 F 136 H 18 157/102 98 10/13/20 21:22 10/13/20 21:22 10/13/20 21:22 10/13/20 21:22 10/13/20 21:22 - Physical Exam Narrative exam: Young lady lying in bed in no acute distress HEENT: NCAT, pink oral mucous membrane Neck: Supple, no venous distention CVS: S1S2 RRR with no murmur, rub or gallop Chest: Clear to auscultation Abdomen: Protuberant, soft, nontender, no organomegaly, bowel sounds are present Extremities: No edema Genitourinary deferred Skin warm and dry Neuro: Awake, alert no focal deficits Results - Lab Results 10/15/20 04:24 10/15/20 04:24 Most recent lab results ABG pH 7.096 pH Units (7.350-7.450) L* 10/14/20 01:30 ABG pCO2 8.1 mm Hg 10/14/20 01:30 ABG pO2 125.0 mm Hg (80.0-90.0) H 10/14/20 01:30 ABG HCO3 2.4 mmol/L (20.0-26.0) L 10/14/20 01:30 ABG O2 Saturation 97.8 % (95.0-99.0) 10/14/20 01:30 Calcium 8.6 mg/dL (8.4-10.2) 10/14/20 10:03 Magnesium 2.10 mg/dL (1.7-2.3) 10/14/20 05:12 Assessment and Plan - Patient Problems (1) Ethylene glycol poisoning Current Visit: Yes Status: Acute Qualifiers: Encounter type: initial encounter Injury intent: intentional self-harm Qu alified Code(s): T52.8X2A - Toxic effect of other organic solvents, intentional self-harm, initial encounter Plan to address problem: Patient was started on bicarbonate drip esomeprazole. Dialysis was initiated last night due to severe metabolic acidosis. We will follow-up bicarbonate and kidney function 3 hours after dialysis. May need to dialyze again tonight. Worsening (2) Hyperkalemia Current Visit: Yes Status: Acute Plan to address problem: Anticipate improvement postdialysis. Follow-up potassium level (3) Leukocytosis Current Visit: Yes Status: Acute Plan to address problem: Probably stress induced. Follow-up cultures (4) MDD (major depressive disorder) Current Visit: Yes Status: Acute Plan to address problem: Resume antidepressants per Psychiatrist. (5) Metabolic acidosis due to ethylene glycol Current Visit: Yes Status: Acute Plan to address problem: Continue bicarbonate drip and dialyze again if acidosis worsening or not improving (6) Metabolic encephalopathy Current Visit: Yes Status: Acute Plan to address problem: Improved already. Continue to monitor mental status
[2020-10-14] MEDS ORDERED: D5W IV SCH (12:00)
[2020-10-14] MEDS ORDERED: SODIUM BICARBONATE IV SCH (12:00)
[2020-10-14] MEDS ORDERED: SODIUM BICARBONATE 150 MEQ in DEXTROSE 5% IN WATER 1,000 ML IV SCH (12:00)
[2020-10-14 12:13] LABS: Calcium Oxalate Crystals,Urine FEW
[2020-10-14 17:21] LABS: Calcium 7.7 mg/dL (8.4-10.2)
--- NOTE | 2020-10-14 19:19 | Progress Note ---
Assessment and Plan Assessment and plan: This is a 25-year-old female with depression, PTSD, anxiety who is admitted for intentional ingestion of ethylene glycol Suicide attempt Ethylene Glycol Poisoning Acute Kidney Injury 2/2 Ethylene Glycol Poisoning Major depressive disorder Metabolic Acidosis d/t ethylene glycol Leukocytosis Hyperkalemia -CCM, Nephrology, Psych consulted, patient recommendations -Currently on 1013 hold per psych -Vas-Cath placed 10/14 for HD -HD per nephrology -Fomepizolev per poison control recommendations -MIVF per nephrology -abx therapy -Per psych recommended for outpatient inpatient psychiatric hospitalization -Trend CBC, BMP DVT/GI prophylaxis: SCDs to bilateral adductors while in bed, PPI, heparin subcu Disposition: Downgrade from ICU to floor History Interval history: This is a 25-year-old female with depression, PTSD, anxiety who presents emergency department on 10/13 after intentional ingestion of ethylene glycol in a suicide attempt via EMS. Recommend emergency department revealed leukocytosis, hyperglycemia, hyperkalemia and severe metabolic acidosis. Nephrology and CCM were consulted along with psych. Nephrology recommended Vas-Cath placement for emergent dialysis. Patient was admitted to the hospitalist service with ethylene glycol poisoning, acute kidney injury, severe metabolic acidosis, leukocytosis, hypokalemia and suicide attempt. 10/14: Patient received additional 3 L LR bolus. Repeat VBG results lead to downgrade of patient to floor. Nephrology initiated HD today and Psych consult was completed. Patient remains on 1013 hold with sitter at bedside. Hospitalist Physical - Constitutional Vitals: Temp Pulse Resp BP Pulse Ox 98.2 F 103 H 14 112/65 91 10/14/20 08:45 10/14/20 18:46 10/14/20 18:46 10/14/20 18:46 10/14/20 18:46 General appearance: Present: no acute distress, well-nourished - EENT Eyes: Present: PERRL, EOM intact ENT: hearing intact, clear oral mucosa, dentition normal - Neck Neck: Present: normal ROM - Respiratory Respiratory effort: normal Respiratory: bilateral: CTA - Cardiovascular Rhythm: regular Heart Sounds: Present: S1 & S2. Absent: systolic murmur, diastolic murmur - Extremities Extremities: no ischemia, pulses intact, pulses symmetrical, No edema, normal temperature, normal color, Full ROM Peripheral Pulses: within normal limits - Abdominal General gastrointestinal: soft, non-tender, non-distended, normal bowel sounds - Integumentary Integumentary: Present: clear, warm, dry - Psychiatric Psychiatric: memory intact, cooperative - Neurologic Neurologic: CNII-XII intact, no focal deficits, moves all extremities - Allied Health Allied health notes reviewed: nursing, social work Results - Labs CBC & Chem 7: 10/14/20 10:03 10/14/20 15:52 Labs: Laboratory Last Values WBC 23.3 K/mm3 (4.5-11.0) H 10/14/20 10:03 RBC 4.16 M/mm3 (3.65-5.03) 10/14/20 10:03 Hgb 12.6 gm/dl (10.1-14.3) D 10/14/20 10:03 Hct 38.0 % (30.3-42.9) D 10/14/20 10:03 MCV 91 fl (79-97) 10/14/20 10:03 MCH 30 pg (28-32) 10/14/20 10:03 MCHC 33 % (30-34) 10/14/20 10:03 RDW 13.7 % (13.2-15.2) 10/14/20 10:03 Plt Count 296 K/mm3 (140-440) 10/14/20 10:03 Add Manual Diff Complete 10/13/20 21:40 Total Counted 100 10/13/20 21:40 Seg Neuts % (Manual) 68.0 % (40.0-70.0) 10/13/20 21:40 Lymphocytes % (Manual) 23.0 % (13.4-35.0) 10/13/20 21:40 Monocytes % (Manual) 9.0 % (0.0-7.3) H 10/13/20 21:40 Nucleated RBC % Not Reportable 10/13/20 21:40 Seg Neutrophils # Man 15.0 K/mm3 (1.8-7.7) H 10/13/20 21:40 Band Neutrophils # 0.0 K/mm3 10/13/20 21:40 Lymphocytes # (Manual) 5.1 K/mm3 (1.2-5.4) 10/13/20 21:40 Abs React Lymphs (Man) 0.0 K/mm3 10/13/20 21:40 Monocytes # (Manual) 2.0 K/mm3 (0.0-0.8) H 10/13/20 21:40 Eosinophils # (Manual) 0.0 K/mm3 (0.0-0.4) 10/13/20 21:40 Basophils # (Manual) 0.0 K/mm3 (0.0-0.1) 10/13/20 21:40 Metamyelocytes # 0.0 K/mm3 10/13/20 21:40 Myelocytes # 0.0 K/mm3 10/13/20 21:40 Promyelocytes # 0.0 K/mm3 10/13/20 21:40 Blast Cells # 0.0 K/mm3 10/13/20 21:40 WBC Morphology Not Reportable 10/13/20 21:40 Hypersegmented Neuts Not Reportable 10/13/20 21:40 Hyposegmented Neuts Not Reportable 10/13/20 21:40 Hypogranular Neuts Not Reportable 10/13/20 21:40 Smudge Cells Not Reportable 10/13/20 21:40 Toxic Granulation Not Reportable 10/13/20 21:40 Toxic Vacuolation Not Reportable 10/13/20 21:40 Dohle Bodies Not Reportable 10/13/20 21:40 Pelger-Huet Anomaly Not Reportable 10/13/20 21:40 Benjy Rods Not Reportable 10/13/20 21:40 Platelet Estimate Not Reportable 10/13/20 21:40 Clumped Platelets Not Reportable 10/13/20 21:40 Plt Clumps, EDTA Not Reportable 10/13/20 21:40 Large Platelets Not Reportable 10/13/20 21:40 Giant Platelets Not Reportable 10/13/20 21:40 Platelet Satelliting Not Reportable 10/13/20 21:40 Plt Morphology Comment Not Reportable 10/13/20 21:40 RBC Morphology Normal 10/13/20 21:40 Dimorphic RBCs Not Reportable 10/13/20 21:40 Polychromasia Not Reportable 10/13/20 21:40 Hypochromasia Not Reportable 10/13/20 21:40 Poikilocytosis Not Reportable 10/13/20 21:40 Anisocytosis Not Reportable 10/13/20 21:40 Microcytosis Not Reportable 10/13/20 21:40 Macrocytosis Not Reportable 10/13/20 21:40 Spherocytes Not Reportable 10/13/20 21:40 Pappenheimer Bodies Not Reportable 10/13/20 21:40 Sickle Cells Not Reportable 10/13/20 21:40 Target Cells Not Reportable 10/13/20 21:40 Tear Drop Cells Not Reportable 10/13/20 21:40 Ovalocytes Not Reportable 10/13/20 21:40 Helmet Cells Not Reportable 10/13/20 21:40 Jeong-[place] Bodies Not Reportable 10/13/20 21:40 [place] Rings Not Reportable 10/13/20 21:40 [place] Cells Not Reportable 10/13/20 21:40 Bite Cells Not Reportable 10/13/20 21:40 Crenated Cell Not Reportable 10/13/20 21:40 Elliptocytes Not Reportable 10/13/20 21:40 Acanthocytes (Spur) Not Reportable 10/13/20 21:40 Rouleaux Not Reportable 10/13/20 21:40 Hemoglobin C Crystals Not Reportable 10/13/20 21:40 Schistocytes Not Reportable 10/13/20 21:40 Malaria parasites Not Reportable 10/13/20 21:40 Koffi Bodies Not Reportable 10/13/20 21:40 Hem Pathologist Commnt No 10/13/20 21:40 ABG pH 7.096 pH Units (7.350-7.450) L* 10/14/20 01:30 POC ABG pCO2 10.5 mmHg (32.0-48.0) L 10/13/20 22:07 ABG pCO2 8.1 mm Hg 10/14/20 01:30 POC ABG pO2 131.9 mmHg (83-108) H 10/13/20 22:07 ABG pO2 125.0 mm Hg (80.0-90.0) H 10/14/20 01:30 POC ABG HCO3 2.4 10/13/20 22:07 ABG HCO3 2.4 mmol/L (20.0-26.0) L 10/14/20 01:30 ABG O2 Saturation 97.8 % (95.0-99.0) 10/14/20 01:30 ABG O2 Content 21.6 (0.0-44) 10/14/20 01:30 POC ABG Base Excess -27.2 10/13/20 22:07 ABG Base Excess -24.6 mmol/L (-2.0-3.0) L 10/14/20 01:30 ABG Hemoglobin 15.9 gm/dl (12.0-16.0) 10/14/20 01:30 ABG Oxyhemoglobin 97.5 (94-98) 10/13/20 22:07 ABG Carboxyhemoglobin 1.0 % (0.0-5.0) 10/14/20 01:30 ABG Methemoglobin 0.6 % (0.0-1.5) 10/14/20 01:30 ABG Sodium 142.3 mmol/L (136.0-145.0) 10/13/20 22:07 ABG Potassium 5.4 mmol/L (3.40-4.50) H 10/13/20 22:07 ABG Chloride 114.0 mmol/L (98-107) H 10/13/20 22:07 ABG Glucose 97 mg/dL (65-95) H 10/13/20 22:07 VBG pH 7.281 (7.320-7.420) L 10/14/20 Unknown Oxyhemoglobin 96.3 % (95.0-99.0) 10/14/20 01:30 Carboxyhemoglobin 0.4 (0.5-1.5) L 10/13/20 22:07 FiO2 21 % 10/14/20 01:30 FiO2 % 21.0 10/13/20 22:07 Sodium 137 mmol/L (137-145) 10/14/20 15:52 Potassium 3.7 mmol/L (3.6-5.0) 10/14/20 15:52 Chloride 106.7 mmol/L (98-107) 10/14/20 15:52 Carbon Dioxide 13 mmol/L (22-30) L 10/14/20 15:52 Anion Gap 21 mmol/L 10/14/20 15:52 BUN 8 mg/dL (7-17) 10/14/20 15:52 Creatinine 1.7 mg/dL (0.6-1.2) H 10/14/20 15:52 Estimated GFR 36 ml/min 10/14/20 15:52 BUN/Creatinine Ratio 5 % 10/14/20 15:52 Glucose 70 mg/dL (65-100) 10/14/20 15:52 Osmolality 320 Mosm/kg 10/13/20 21:46 Calcium 7.7 mg/dL (8.4-10.2) L 10/14/20 15:52 Magnesium 2.10 mg/dL (1.7-2.3) 10/14/20 05:12 Total Bilirubin 1.20 mg/dL (0.1-1.2) 10/14/20 10:03 AST 29 units/L (5-40) 10/14/20 10:03 ALT 9 units/L (7-56) 10/14/20 10:03 Alkaline Phosphatase 62 units/L (35-129) 10/14/20 10:03 Total Protein 6.5 g/dL (6.3-8.2) D 10/14/20 10:03 Albumin 4.0 g/dL (3.9-5) 10/14/20 10:03 Albumin/Globulin Ratio 1.6 % 10/14/20 10:03 HCG, Qual Negative (Negative) 10/13/20 21:40 Arterial Blood Glucose 97 mg/dL (65-95) H 10/13/20 22:07 Arterial Blood Ionized Calcium 5.3 mg/dL (4.6-5.3) 10/13/20 22:07 Urine Color Yellow (Yellow) 10/13/20 Unknown Urine Turbidity Slightly-cloudy (Clear) 10/13/20 Unknown Urine pH 5.0 (5.0-7.0) 10/13/20 Unknown Ur Specific [place] 1.010 (1.003-1.030) 10/13/20 Unknown Urine Protein 100 mg/dl mg/dL (Negative) 10/13/20 Unknown Urine Glucose (UA) Neg mg/dL (Negative) 10/13/20 Unknown Urine Ketones Neg mg/dL (Negative) 10/13/20 Unknown Urine Blood Lg (Negative) 10/13/20 Unknown Urine Nitrite Neg (Negative) 10/13/20 Unknown Urine Bilirubin Neg (Negative) 10/13/20 Unknown Urine Urobilinogen < 2.0 mg/dL (<2.0) 10/13/20 Unknown Ur Leukocyte Esterase Sm (Negative) 10/13/20 Unknown Urine WBC (Auto) 5.0 /HPF (0.0-6.0) 10/13/20 Unknown Urine RBC (Auto) > 182.0 /HPF (0.0-6.0) 10/13/20 Unknown U Epithel Cells (Auto) 5.0 /HPF (0-13.0) 10/13/20 Unknown Urine Bacteria (Auto) 2+ /HPF (Negative) 10/13/20 Unknown Calcium Oxalate Crystal Few 10/13/20 Unknown Uric Acid Crystals 1+ 10/13/20 Unknown Urine Mucus Few /HPF 10/13/20 Unknown Urine Yeast (Budding) Few /HPF 10/13/20 Unknown Salicylates < 0.3 mg/dL (2.8-20.0) L 10/13/20 21:40 Urine Opiates Screen Presumptive negative 10/13/20 Unknown Urine Methadone Screen Presumptive negative 10/13/20 Unknown Acetaminophen 5.0 ug/mL (10.0-30.0) L 10/13/20 21:40 Ur Barbiturates Screen Presumptive negative 10/13/20 Unknown Ur Phencyclidine Scrn Presumptive negative 10/13/20 Unknown Ur Amphetamines Screen Presumptive negative 10/13/20 Unknown U Benzodiazepines Scrn Presumptive negative 10/13/20 Unknown Urine Cocaine Screen Presumptive negative 10/13/20 Unknown U Marijuana (THC) Screen Presumptive negative 10/13/20 Unknown Drugs of Abuse Note Disclamer 10/13/20 Unknown Plasma/Serum Alcohol < 0.01 % (0-0.07) 10/13/20 21:40 Coronavirus (PCR) Negative (Negative) 10/14/20 Unknown Hepatitis A IgM Ab Non-reactive (NonReactive) 10/14/20 05:12 Hep Bs Antigen Non-reactive (Negative) 10/14/20 05:12 Hep B Core IgM Ab Non-reactive (NonReactive) 10/14/20 05:12 Hepatitis C Antibody Non-reactive (NonReactive) 10/14/20 05:12 Active Medications - Current Medications Current Medications: Generic Name Dose Route Start Last Admin Trade Name Freq PRN Reason Stop Dose Admin Acetaminophen 650 mg 10/14/20 00:31 Acetaminophen 325 Mg Tab PO Q4H PRN Pain MILD(1-3)/Fever >100.5/TAYLOR Famotidine 20 mg 10/14/20 10:00 10/14/20 10:21 Famotidine 20 Mg/2 Ml Inj IV 20 mg BID MINH Administration Heparin Sodium (Porcine) 5,000 unit 10/14/20 06:00 10/14/20 17:40 Heparin 5,000 Unit/1 Ml Vial SUB-Q 5,000 unit Q8HR MINH Administration Sodium Chloride 100 mls @ 999 mls/hr 10/14/20 00:31 Nacl 0.9% IV PHANI PRN Hypotension Ceftriaxone Sodium 2 gm in 100 mls @ 200 mls/hr 10/14/20 01:00 10/14/20 10:00 Rocephin/Ns 2 Gm/100 Ml IV 200 mls/hr Q24HR MINH Administration Protocol Fomepizole 1,080 mg/ Sodium 101.08 mls @ 202.16 mls/hr 10/15/20 11:00 Chloride IV Q12H [facility] Sodium Bicarbonate 150 meq/ 1,150 mls @ 150 mls/hr 10/14/20 12:00 Dextrose IV DIRECT MINH Ondansetron HCl 4 mg 10/14/20 00:31 Ondansetron 4 Mg/2 Ml Inj IV Q8H PRN Nausea And Vomiting Sodium Chloride 10 ml 10/14/20 10:00 10/14/20 10:00 Sodium Chloride 0.9% 10 Ml Flush Syringe IV 10 ml BID MINH Administration Sodium Chloride 10 ml 10/14/20 00:31 Sodium Chloride 0.9% 10 Ml Flush Syringe IV PRN PRN LINE FLUSH
[2020-10-15 05:05] LABS: Basophils # (Auto) 0.1 K/mm3 (0.0-0.1); Basophils % (Auto) 0.4 % (0.0-1.8); Eosinophils % (Auto) 0.1 % (0.0-4.3); Hematocrit 35.3 % (30.3-42.9); Hemoglobin 11.7 gm/dl (10.1-14.3); Lymphocytes # (Auto) 2.4 K/mm3 (1.2-5.4); Mean Corpuscular HGB Conc 33 % (30-34); Mean Corpuscular Volume 90 fl (79-97); Monocytes # (Auto) 1.3 K/mm3 (0.0-0.8); Monocytes % (Auto) 7.9 % (0.0-7.3); Platelet Count 270 K/mm3 (140-440); Red Cell Distribution Width 13.4 % (13.2-15.2)
[2020-10-15 05:33] LABS: Albumin 3.3 g/dL (3.9-5); Calcium 7.7 mg/dL (8.4-10.2)
[2020-10-15] MEDS: HEPARIN 5,000 UNIT/1 ML VIAL SUB-Q SCH ×3 (05:42→21:03)
[2020-10-15] MEDS ORDERED: POTASSIUM CHLORIDE ER 20 MEQ TAB PO NR (07:12)
--- NOTE | 2020-10-15 09:14 | Progress Note ---
Assessment and Plan Assessment and plan: This is a 25-year-old female with depression, PTSD, anxiety who is admitted for intentional ingestion of ethylene glycol Suicide attempt Patient denies any suicidal ideation at this time Behavioral health consulted Patient needs to be restarted on her depression/anxiety medications Ethylene Glycol Poisoning Fomepizole 15 mg/kg every 12 hours Monitor ABG Monitor ethylene glycol levels Acute Kidney Injury 2/2 Ethylene Glycol Poisoning Nephrology consulted Hemodialysis catheter placed, Creatinine slightly worse Patient on fluids with bicarb Major depressive disorder Restart home medications Metabolic Acidosis d/t ethylene glycol Fluids with bicarb Leukocytosis. Downtrending Continue antibiotics Hyperkalemia Resolved Hypokalemia Potassium supplementation DVT CODE STATUS: Full Disposition: Continue treatment for ethylene glycol intoxication and CATRACHITO History Interval history: 10/15/2020: Patient seen and examined, no overnight events, states that she feels as if she has generalized body pain. No fevers or chills. No nausea vomiting. Hospitalist Physical - Physical exam Narrative exam: General appearance: no acute distress, well-nourished EENT: PERRL, EOM intact, hearing intact, clear oral mucosa Neck: Present: supple, normal ROM Respiratory: bilateral CTA, negative: rales, rhonchi, wheezing Cardiovascular: Regular rate/rhythm, Normal S1 & S2. No gallop, rub, femoral catheter in right leg Extremities: no ischemia, No edema, normal temperature, normal color, Full ROM Abdominal: soft, no tenderness, non-distended, normal bowel sounds Integumentary: Present: clear, warm, dry no wounds, no erythema noted Psychiatric: appropriate mood/affect, intact judgment & insight Neurologic: CNII-XII intact, moves all extremities, no sensory or motor abnormalities - Constitutional Vitals: Temp Pulse Resp BP Pulse Ox 99.5 F 90 20 96/51 97 10/15/20 07:48 10/15/20 08:32 10/15/20 07:48 10/15/20 07:48 10/15/20 07:48 General appearance: Present: no acute distress, well-nourished Results - Labs CBC & Chem 7: 10/15/20 04:24 10/15/20 04:24 Labs: Laboratory Last Values WBC 16.0 K/mm3 (4.5-11.0) H 10/15/20 04:24 RBC 3.90 M/mm3 (3.65-5.03) 10/15/20 04:24 Hgb 11.7 gm/dl (10.1-14.3) 10/15/20 04:24 Hct 35.3 % (30.3-42.9) 10/15/20 04:24 MCV 90 fl (79-97) 10/15/20 04:24 MCH 30 pg (28-32) 10/15/20 04:24 MCHC 33 % (30-34) 10/15/20 04:24 RDW 13.4 % (13.2-15.2) 10/15/20 04:24 Plt Count 270 K/mm3 (140-440) 10/15/20 04:24 Lymph % (Auto) 15.0 % (13.4-35.0) 10/15/20 04:24 [place] % (Auto) 7.9 % (0.0-7.3) H 10/15/20 04:24 Eos % (Auto) 0.1 % (0.0-4.3) 10/15/20 04:24 Baso % (Auto) 0.4 % (0.0-1.8) 10/15/20 04:24 Lymph # (Auto) 2.4 K/mm3 (1.2-5.4) 10/15/20 04:24 [place] # (Auto) 1.3 K/mm3 (0.0-0.8) H 10/15/20 04:24 Eos # (Auto) 0.0 K/mm3 (0.0-0.4) 10/15/20 04:24 Baso # (Auto) 0.1 K/mm3 (0.0-0.1) 10/15/20 04:24 Add Manual Diff Complete 10/13/20 21:40 Total Counted 100 10/13/20 21:40 Seg Neutrophils % 76.6 % (40.0-70.0) H 10/15/20 04:24 Seg Neuts % (Manual) 68.0 % (40.0-70.0) 10/13/20 21:40 Lymphocytes % (Manual) 23.0 % (13.4-35.0) 10/13/20 21:40 Monocytes % (Manual) 9.0 % (0.0-7.3) H 10/13/20 21:40 Nucleated RBC % Not Reportable 10/13/20 21:40 Seg Neutrophils # 12.3 K/mm3 (1.8-7.7) H 10/15/20 04:24 Seg Neutrophils # Man 15.0 K/mm3 (1.8-7.7) H 10/13/20 21:40 Band Neutrophils # 0.0 K/mm3 10/13/20 21:40 Lymphocytes # (Manual) 5.1 K/mm3 (1.2-5.4) 10/13/20 21:40 Abs React Lymphs (Man) 0.0 K/mm3 10/13/20 21:40 Monocytes # (Manual) 2.0 K/mm3 (0.0-0.8) H 10/13/20 21:40 Eosinophils # (Manual) 0.0 K/mm3 (0.0-0.4) 10/13/20 21:40 Basophils # (Manual) 0.0 K/mm3 (0.0-0.1) 10/13/20 21:40 Metamyelocytes # 0.0 K/mm3 10/13/20 21:40 Myelocytes # 0.0 K/mm3 10/13/20 21:40 Promyelocytes # 0.0 K/mm3 10/13/20 21:40 Blast Cells # 0.0 K/mm3 10/13/20 21:40 WBC Morphology Not Reportable 10/13/20 21:40 Hypersegmented Neuts Not Reportable 10/13/20 21:40 Hyposegmented Neuts Not Reportable 10/13/20 21:40 Hypogranular Neuts Not Reportable 10/13/20 21:40 Smudge Cells Not Reportable 10/13/20 21:40 Toxic Granulation Not Reportable 10/13/20 21:40 Toxic Vacuolation Not Reportable 10/13/20 21:40 Dohle Bodies Not Reportable 10/13/20 21:40 Pelger-Huet Anomaly Not Reportable 10/13/20 21:40 Benjy Rods Not Reportable 10/13/20 21:40 Platelet Estimate Not Reportable 10/13/20 21:40 Clumped Platelets Not Reportable 10/13/20 21:40 Plt Clumps, EDTA Not Reportable 10/13/20 21:40 Large Platelets Not Reportable 10/13/20 21:40 Giant Platelets Not Reportable 10/13/20 21:40 Platelet Satelliting Not Reportable 10/13/20 21:40 Plt Morphology Comment Not Reportable 10/13/20 21:40 RBC Morphology Normal 10/13/20 21:40 Dimorphic RBCs Not Reportable 10/13/20 21:40 Polychromasia Not Reportable 10/13/20 21:40 Hypochromasia Not Reportable 10/13/20 21:40 Poikilocytosis Not Reportable 10/13/20 21:40 Anisocytosis Not Reportable 10/13/20 21:40 Microcytosis Not Reportable 10/13/20 21:40 Macrocytosis Not Reportable 10/13/20 21:40 Spherocytes Not Reportable 10/13/20 21:40 Pappenheimer Bodies Not Reportable 10/13/20 21:40 Sickle Cells Not Reportable 10/13/20 21:40 Target Cells Not Reportable 10/13/20 21:40 Tear Drop Cells Not Reportable 10/13/20 21:40 Ovalocytes Not Reportable 10/13/20 21:40 Helmet Cells Not Reportable 10/13/20 21:40 Jeong-[place] Bodies Not Reportable 10/13/20 21:40 [place] Rings Not Reportable 10/13/20 21:40 [place] Cells Not Reportable 10/13/20 21:40 Bite Cells Not Reportable 10/13/20 21:40 Crenated Cell Not Reportable 10/13/20 21:40 Elliptocytes Not Reportable 10/13/20 21:40 Acanthocytes (Spur) Not Reportable 10/13/20 21:40 Rouleaux Not Reportable 10/13/20 21:40 Hemoglobin C Crystals Not Reportable 10/13/20 21:40 Schistocytes Not Reportable 10/13/20 21:40 Malaria parasites Not Reportable 10/13/20 21:40 Koffi Bodies Not Reportable 10/13/20 21:40 Hem Pathologist Commnt No 10/13/20 21:40 ABG pH 7.096 pH Units (7.350-7.450) L* 10/14/20 01:30 POC ABG pCO2 10.5 mmHg (32.0-48.0) L 10/13/20 22:07 ABG pCO2 8.1 mm Hg 10/14/20 01:30 POC ABG pO2 131.9 mmHg (83-108) H 10/13/20 22:07 ABG pO2 125.0 mm Hg (80.0-90.0) H 10/14/20 01:30 POC ABG HCO3 2.4 10/13/20 22:07 ABG HCO3 2.4 mmol/L (20.0-26.0) L 10/14/20 01:30 ABG O2 Saturation 97.8 % (95.0-99.0) 10/14/20 01:30 ABG O2 Content 21.6 (0.0-44) 10/14/20 01:30 POC ABG Base Excess -27.2 10/13/20 22:07 ABG Base Excess -24.6 mmol/L (-2.0-3.0) L 10/14/20 01:30 ABG Hemoglobin 15.9 gm/dl (12.0-16.0) 10/14/20 01:30 ABG Oxyhemoglobin 97.5 (94-98) 10/13/20 22:07 ABG Carboxyhemoglobin 1.0 % (0.0-5.0) 10/14/20 01:30 ABG Methemoglobin 0.6 % (0.0-1.5) 10/14/20 01:30 ABG Sodium 142.3 mmol/L (136.0-145.0) 10/13/20 22:07 ABG Potassium 5.4 mmol/L (3.40-4.50) H 10/13/20 22:07 ABG Chloride 114.0 mmol/L (98-107) H 10/13/20 22:07 ABG Glucose 97 mg/dL (65-95) H 10/13/20 22:07 VBG pH 7.281 (7.320-7.420) L 10/14/20 Unknown Oxyhemoglobin 96.3 % (95.0-99.0) 10/14/20 01:30 Carboxyhemoglobin 0.4 (0.5-1.5) L 10/13/20 22:07 FiO2 21 % 10/14/20 01:30 FiO2 % 21.0 10/13/20 22:07 Sodium 140 mmol/L (137-145) 10/15/20 04:24 Potassium 3.2 mmol/L (3.6-5.0) L 10/15/20 04:24 Chloride 105.2 mmol/L (98-107) 10/15/20 04:24 Carbon Dioxide 19 mmol/L (22-30) L 10/15/20 04:24 Anion Gap 19 mmol/L 10/15/20 04:24 BUN 11 mg/dL (7-17) 10/15/20 04:24 Creatinine 3.6 mg/dL (0.6-1.2) H D 10/15/20 04:24 Estimated GFR 15 ml/min 10/15/20 04:24 BUN/Creatinine Ratio 3 % 10/15/20 04:24 Glucose 71 mg/dL (65-100) 10/15/20 04:24 Osmolality 320 Mosm/kg 10/13/20 21:46 Calcium 7.7 mg/dL (8.4-10.2) L 10/15/20 04:24 Magnesium 2.10 mg/dL (1.7-2.3) 10/14/20 05:12 Total Bilirubin 0.50 mg/dL (0.1-1.2) 10/15/20 04:24 AST 23 units/L (5-40) 10/15/20 04:24 ALT 7 units/L (7-56) 10/15/20 04:24 Alkaline Phosphatase 57 units/L (35-129) 10/15/20 04:24 Total Protein 5.3 g/dL (6.3-8.2) L 10/15/20 04:24 Albumin 3.3 g/dL (3.9-5) L 10/15/20 04:24 Albumin/Globulin Ratio 1.7 % 10/15/20 04:24 HCG, Qual Negative (Negative) 10/13/20 21:40 Arterial Blood Glucose 97 mg/dL (65-95) H 10/13/20 22:07 Arterial Blood Ionized Calcium 5.3 mg/dL (4.6-5.3) 10/13/20 22:07 Urine Color Yellow (Yellow) 10/13/20 Unknown Urine Turbidity Slightly-cloudy (Clear) 10/13/20 Unknown Urine pH 5.0 (5.0-7.0) 10/13/20 Unknown Ur Specific [place] 1.010 (1.003-1.030) 10/13/20 Unknown Urine Protein 100 mg/dl mg/dL (Negative) 10/13/20 Unknown Urine Glucose (UA) Neg mg/dL (Negative) 10/13/20 Unknown Urine Ketones Neg mg/dL (Negative) 10/13/20 Unknown Urine Blood Lg (Negative) 10/13/20 Unknown Urine Nitrite Neg (Negative) 10/13/20 Unknown Urine Bilirubin Neg (Negative) 10/13/20 Unknown Urine Urobilinogen < 2.0 mg/dL (<2.0) 10/13/20 Unknown Ur Leukocyte Esterase Sm (Negative) 10/13/20 Unknown Urine WBC (Auto) 5.0 /HPF (0.0-6.0) 10/13/20 Unknown Urine RBC (Auto) > 182.0 /HPF (0.0-6.0) 10/13/20 Unknown U Epithel Cells (Auto) 5.0 /HPF (0-13.0) 10/13/20 Unknown Urine Bacteria (Auto) 2+ /HPF (Negative) 10/13/20 Unknown Calcium Oxalate Crystal Few 10/13/20 Unknown Uric Acid Crystals 1+ 10/13/20 Unknown Urine Mucus Few /HPF 10/13/20 Unknown Urine Yeast (Budding) Few /HPF 10/13/20 Unknown Salicylates < 0.3 mg/dL (2.8-20.0) L 10/13/20 21:40 Urine Opiates Screen Presumptive negative 10/13/20 Unknown Urine Methadone Screen Presumptive negative 10/13/20 Unknown Acetaminophen 5.0 ug/mL (10.0-30.0) L 10/13/20 21:40 Ur Barbiturates Screen Presumptive negative 10/13/20 Unknown Ur Phencyclidine Scrn Presumptive negative 10/13/20 Unknown Ur Amphetamines Screen Presumptive negative 10/13/20 Unknown U Benzodiazepines Scrn Presumptive negative 10/13/20 Unknown Urine Cocaine Screen Presumptive negative 10/13/20 Unknown U Marijuana (THC) Screen Presumptive negative 10/13/20 Unknown Drugs of Abuse Note Disclamer 10/13/20 Unknown Ethylene Glycol TNR 10/14/20 15:52 Plasma/Serum Alcohol < 0.01 % (0-0.07) 10/13/20 21:40 Coronavirus (PCR) Negative (Negative) 10/14/20 Unknown Hepatitis A IgM Ab Non-reactive (NonReactive) 10/14/20 05:12 Hep Bs Antigen Non-reactive (Negative) 10/14/20 05:12 Hep B Core IgM Ab Non-reactive (NonReactive) 10/14/20 05:12 Hepatitis C Antibody Non-reactive (NonReactive) 10/14/20 05:12 Gomez/IV: Voiding Method Toilet Active Medications - Current Medications Current Medications: Generic Name Dose Route Start Last Admin Trade Name Freq PRN Reason Stop Dose Admin Acetaminophen 650 mg 10/14/20 00:31 Acetaminophen 325 Mg Tab PO Q4H PRN Pain MILD(1-3)/Fever >100.5/TAYLOR Famotidine 20 mg 10/14/20 10:00 10/14/20 22:15 Famotidine 20 Mg/2 Ml Inj IV 20 mg BID MINH Administration Heparin Sodium (Porcine) 5,000 unit 10/14/20 06:00 10/15/20 05:42 Heparin 5,000 Unit/1 Ml Vial SUB-Q 5,000 unit Q8HR MINH Administration Sodium Chloride 100 mls @ 999 mls/hr 10/14/20 00:31 Nacl 0.9% IV PHANI PRN Hypotension Ceftriaxone Sodium 2 gm in 100 mls @ 200 mls/hr 10/14/20 01:00 10/14/20 10:00 Rocephin/Ns 2 Gm/100 Ml IV 200 mls/hr Q24HR MINH Administration Protocol Fomepizole 1,080 mg/ Sodium 101.08 mls @ 202.16 mls/hr 10/15/20 11:00 Chloride IV Q12H MINH Sodium Bicarbonate 150 meq/ 1,150 mls @ 150 mls/hr 10/14/20 12:00 Dextrose IV DIRECT MINH Ondansetron HCl 4 mg 10/14/20 00:31 Ondansetron 4 Mg/2 Ml Inj IV Q8H PRN Nausea And Vomiting Potassium Chloride 20 meq 10/15/20 07:12 Potassium Chloride Er 20 Meq Tab PO 10/15/20 10:00 ONCE NR Sodium Chloride 10 ml 10/14/20 10:00 10/14/20 22:15 Sodium Chloride 0.9% 10 Ml Flush Syringe IV 10 ml BID MINH Administration Sodium Chloride 10 ml 10/14/20 00:31 Sodium Chloride 0.9% 10 Ml Flush Syringe IV PRN PRN LINE FLUSH
[2020-10-15] MEDS: FAMOTIDINE 20 MG/2 ML INJ IV SCH (10:24)
[2020-10-15] MEDS: cefTRIAXone/NS 2 GM/100 ML 2 GM/100 ML BAG IV SCH (10:24)
--- NOTE | 2020-10-15 10:45 | Progress Note ---
Assessment and Plan - Patient Problems (1) Ethylene glycol poisoning Current Visit: Yes Status: Acute Qualifiers: Encounter type: initial encounter Injury intent: intentional self-harm Qualified Code(s): T52.8X2A - Toxic effect of other organic solvents, intentional self-harm, initial encounter Plan to address problem: Patient was started on bicarbonate drip, Fomepizole. Dialysis was initiated on presentation due to severe metabolic acidosis. Hemodialysis again today. Continue fomepizole and bicarbonate drip. Further management depending on clinical course. (2) Hyperkalemia Current Visit: Yes Status: Acute Plan to address problem: Potassium has improved with dialysis.. Follow-up potassium level (3) Leukocytosis Current Visit: Yes Status: Acute Plan to address problem: Probably stress induced. Follow-up cultures (4) MDD (major depressive disorder) Current Visit: Yes Status: Acute Plan to address problem: Resume antidepressants per Psychiatrist. (5) Metabolic acidosis due to ethylene glycol Current Visit: Yes Status: Acute Plan to address problem: Continue bicarbonate drip and dialysis. Monitor for improvement (6) Metabolic encephalopathy Current Visit: Yes Status: Acute Plan to address problem: Improved already. Continue to monitor mental status Subjective Date of service: 10/15/20 Principal diagnosis: Ethylene glycol poisoning, metabolic acidosis, hyperkalemia, acute kidney Interval history: Patient seen lying in bed. Complains of pain in the all over. She also had nausea but no vomiting. Objective - Exam Narrative Exam: Young lady lying in bed in no acute distress HEENT: NCAT, pink oral mucous membrane Neck: Supple, no venous distention CVS: S1S2 RRR with no murmur, rub or gallop Chest: Clear to auscultation Abdomen: Protuberant, soft, nontender, no organomegaly, bowel sounds are present Extremities: No edema Genitourinary deferred Skin warm and dry Neuro: Awake, alert no focal deficits - Vital Signs Vital signs: Vital Signs - 12hr 10/14/20 10/14/20 10/15/20 22:51 23:22 04:20 Temperature 98.1 F 98.7 F Pulse Rate 101 H 102 H Respiratory 16 16 Rate Blood Pressure 99/62 Blood Pressure 173/66 114/69 [Left] O2 Sat by Pulse 80 L 98 94 Oximetry 10/15/20 10/15/20 07:48 08:32 Temperature 99.5 F Pulse Rate 98 H 90 Respiratory 20 Rate Blood Pressure 96/51 Blood Pressure [Left] O2 Sat by Pulse 97 Oximetry - Lab 10/15/20 04:24 10/15/20 04:24 Most recent lab results ABG pH 7.096 pH Units (7.350-7.450) L* 10/14/20 01:30 ABG pCO2 8.1 mm Hg 10/14/20 01:30 ABG pO2 125.0 mm Hg (80.0-90.0) H 10/14/20 01:30 ABG HCO3 2.4 mmol/L (20.0-26.0) L 10/14/20 01:30 ABG O2 Saturation 97.8 % (95.0-99.0) 10/14/20 01:30 Calcium 7.7 mg/dL (8.4-10.2) L 10/15/20 04:24 Magnesium 2.10 mg/dL (1.7-2.3) 10/14/20 05:12 Medications & Allergies - Medications Allergies/Adverse Reactions: Allergies No Known Allergies Allergy (Unverified 06/29/13 00:00) Home Medications: Home Medications Medication Instructions Recorded Confirmed Last Taken Type Eszopiclone [Lunesta] 2 mg PO DAILY 10/14/20 10/14/20 2 Weeks Ago History ~09/30/20 Lexapro 7.5 mg PO DAILY 10/14/20 10/14/20 2 Weeks Ago History ~09/30/20 Remeron 10 mg PO DAILY 10/14/20 10/14/20 2 Weeks Ago History ~09/30/20 Active Medications: Generic Name Dose Route Start Last Admin Trade Name Freq PRN Reason Stop Dose Admin Acetaminophen 650 mg 10/14/20 00:31 Acetaminophen 325 Mg Tab PO Q4H PRN Pain MILD(1-3)/Fever >100.5/TAYLOR Famotidine 20 mg 10/14/20 10:00 10/14/20 22:15 Famotidine 20 Mg/2 Ml Inj IV 20 mg BID MINH Administration Heparin Sodium (Porcine) 5,000 unit 10/14/20 06:00 10/15/20 05:42 Heparin 5,000 Unit/1 Ml Vial SUB-Q 5,000 unit Q8HR MINH Administration Sodium Chloride 100 mls @ 999 mls/hr 10/14/20 00:31 Nacl 0.9% IV PHANI PRN Hypotension Ceftriaxone Sodium 2 gm in 100 mls @ 200 mls/hr 10/14/20 01:00 10/14/20 10:00 Rocephin/Ns 2 Gm/100 Ml IV 200 mls/hr Q24HR MINH Administration Protocol Fomepizole 1,080 mg/ Sodium 101.08 mls @ 202.16 mls/hr 10/15/20 11:00 Chloride IV Q12H MINH Sodium Bicarbonate 150 meq/ 1,150 mls @ 150 mls/hr 10/14/20 12:00 Dextrose IV DIRECT MINH Ondansetron HCl 4 mg 10/14/20 00:31 Ondansetron 4 Mg/2 Ml Inj IV Q8H PRN Nausea And Vomiting Sodium Chloride 10 ml 10/14/20 10:00 10/14/20 22:15 Sodium Chloride 0.9% 10 Ml Flush Syringe IV 10 ml BID MINH Administration Sodium Chloride 10 ml 10/14/20 00:31 Sodium Chloride 0.9% 10 Ml Flush Syringe IV PRN PRN LINE FLUSH
[2020-10-15] MEDS: FOMEPIZOLEV IV SCH ×3 (11:43→23:59)
[2020-10-15] MEDS: SODIUM CHLORIDE 0.9% IV SCH ×3 (11:43→23:59)
[2020-10-15 15:30] LABS: Calcium 7.7 mg/dL (8.4-10.2)
[2020-10-16 05:10] LABS: Hematocrit 31.5 % (30.3-42.9); Hemoglobin 10.9 gm/dl (10.1-14.3); Mean Corpuscular HGB Conc 35 % (30-34); Mean Corpuscular Volume 90 fl (79-97); Platelet Count 223 K/mm3 (140-440); Red Cell Distribution Width 13.3 % (13.2-15.2)
[2020-10-16] MEDS: HEPARIN 5,000 UNIT/1 ML VIAL SUB-Q SCH ×3 (05:30→22:01)
[2020-10-16 05:34] LABS: Calcium 7.8 mg/dL (8.4-10.2)
--- NOTE | 2020-10-16 08:45 | Progress Note ---
Assessment and Plan - Patient Problems (1) Ethylene glycol poisoning Current Visit: Yes Status: Acute Qualifiers: Encounter type: initial encounter Injury intent: intentional self-harm Qualified Code(s): T52.8X2A - Toxic effect of other organic solvents, intentional self-harm, initial encounter Plan to address problem: Patient was started on bicarbonate drip, Fomepizole. Dialysis was initiated on presentation due to severe metabolic acidosis. Hemodialysis daily. Continue fomepizole and bicarbonate drip. Further management depending on clinical course. (2) Hyperkalemia Current Visit: Yes Status: Acute Plan to address problem: Potassium has improved with dialysis. Potassium is actually now low. Dialyze on a high potassium bath. Follow-up potassium level (3) Leukocytosis Current Visit: Yes Status: Acute Plan to address problem: Probably stress induced. Follow-up cultures (4) MDD (major depressive disorder) Current Visit: Yes Status: Acute Plan to address problem: Resume antidepressants per Psychiatrist. (5) Metabolic acidosis due to ethylene glycol Current Visit: Yes Status: Acute Plan to address problem: Continue bicarbonate drip and dialysis. Monitor for improvement (6) Metabolic encephalopathy Current Visit: Yes Status: Acute Plan to address problem: Resolved (7) Acute kidney failure Current Visit: Yes Status: Acute Plan to address problem: Acute kidney failure toxin induced. Kidney function is still not improving. Vas-Cath was not functioning appropriately yesterday. Will consult vascular to place a permacath today as patient may need dialysis on discharge. Subjective Principal diagnosis: Ethylene glycol poisoning, metabolic acidosis, hyperkalemia, acute kidney Interval history: Patient seen lying in bed. Complains of nausea overnight. No vomiting. She has aches and pains. No shortness of breath Objective - Exam Narrative Exam: Young lady lying in bed in no acute distress HEENT: NCAT, Neck: Supple, no venous distention CVS: S1S2 RRR with no murmur, rub or gallop Chest: Clear to auscultation Abdomen: Protuberant, soft, nontender, no organomegaly, bowel sounds are present Extremities: No edema Genitourinary deferred Skin warm and dry Neuro: Awake, alert no focal deficits - Vital Signs Vital signs: Vital Signs - 12hr 10/15/20 10/16/20 10/16/20 22:00 00:01 03:56 Temperature 98.0 F 98.0 F Pulse Rate 98 H 83 74 Pulse Rate [ Apical] Respiratory 18 18 Rate Blood Pressure 111/76 91/55 O2 Sat by Pulse 96 96 Oximetry 10/16/20 10/16/20 07:41 08:15 Temperature 98.4 F Pulse Rate 67 Pulse Rate [ 79 Apical] Respiratory 18 17 Rate Blood Pressure 109/66 O2 Sat by Pulse 95 97 Oximetry - Lab 10/16/20 04:27 10/16/20 04:27 Most recent lab results ABG pH 7.096 pH Units (7.350-7.450) L* 10/14/20 01:30 ABG pCO2 8.1 mm Hg 10/14/20 01:30 ABG pO2 125.0 mm Hg (80.0-90.0) H 10/14/20 01:30 ABG HCO3 2.4 mmol/L (20.0-26.0) L 10/14/20 01:30 ABG O2 Saturation 97.8 % (95.0-99.0) 10/14/20 01:30 Calcium 7.8 mg/dL (8.4-10.2) L 10/16/20 04:27 Magnesium 2.10 mg/dL (1.7-2.3) 10/14/20 05:12 Medications & Allergies - Medications Allergies/Adverse Reactions: Allergies No Known Allergies Allergy (Unverified 06/29/13 00:00) Home Medications: Home Medications Medication Instructions Recorded Confirmed Last Taken Type Eszopiclone [Lunesta] 2 mg PO DAILY 10/14/20 10/14/20 2 Weeks Ago History ~09/30/20 Lexapro 7.5 mg PO DAILY 10/14/20 10/14/20 2 Weeks Ago History ~09/30/20 Remeron 10 mg PO DAILY 10/14/20 10/14/20 2 Weeks Ago History ~09/30/20 Active Medications: Generic Name Dose Route Start Last Admin Trade Name Freq PRN Reason Stop Dose Admin Acetaminophen 650 mg 10/14/20 00:31 Acetaminophen 325 Mg Tab PO Q4H PRN Pain MILD(1-3)/Fever >100.5/TAYLOR Famotidine 20 mg 10/16/20 10:00 Famotidine 20 Mg/2 Ml Inj IV DAILY MINH Heparin Sodium (Porcine) 5,000 unit 10/14/20 06:00 10/16/20 05:30 Heparin 5,000 Unit/1 Ml Vial SUB-Q 5,000 unit Q8HR MINH Administration Sodium Chloride 100 mls @ 999 mls/hr 10/14/20 00:31 Nacl 0.9% IV PHANI PRN Hypotension Ceftriaxone Sodium 2 gm in 100 mls @ 200 mls/hr 10/14/20 01:00 10/15/20 10:24 Rocephin/Ns 2 Gm/100 Ml IV 10/19/20 10:29 Not Given Q24HR [facility] Protocol Fomepizole 1,080 mg/ Sodium 101.08 mls @ 202.16 mls/hr 10/15/20 11:00 10/15/20 23:59 Chloride IV Not Given Q12H [facility] Sodium Bicarbonate 150 meq/ 1,150 mls @ 150 mls/hr 10/14/20 12:00 Dextrose IV DIRECT [facility] Ondansetron HCl 4 mg 10/14/20 00:31 Ondansetron 4 Mg/2 Ml Inj IV Q8H PRN Nausea And Vomiting Potassium Chloride 20 meq 10/16/20 08:07 Potassium Chloride Er 20 Meq Tab PO 10/16/20 11:00 ONCE NR Sodium Chloride 10 ml 10/14/20 10:00 10/15/20 21:03 Sodium Chloride 0.9% 10 Ml Flush Syringe IV 10 ml BID MINH Administration Sodium Chloride 10 ml 10/14/20 00:31 Sodium Chloride 0.9% 10 Ml Flush Syringe IV PRN PRN LINE FLUSH
[2020-10-16] MEDS: cefTRIAXone/NS 2 GM/100 ML 2 GM/100 ML BAG IV SCH (09:58)
[2020-10-16] MEDS: POTASSIUM CHLORIDE ER 20 MEQ TAB PO NR ×2 (09:59→16:33)
[2020-10-16] MEDS: FAMOTIDINE 20 MG/2 ML INJ IV SCH (09:59)
[2020-10-16] MEDS ORDERED: fentaNYL 100 MCG/2 ML INJ ONE (10:18)
[2020-10-16] MEDS ORDERED: MIDAZOLAM 2 MG/2 ML INJ ONE (10:18)
[2020-10-16] MEDS ORDERED: SODIUM CHLORIDE 0.9% 250ML 250 ML ONE (10:19)
[2020-10-16] MEDS ORDERED: HEPARIN/NS 5000 UNIT/500ML 500 ML IR ONE (10:19)
[2020-10-16] MEDS ORDERED: LIDOCAINE (2%) 20 MG/1 ML VIAL 20 ML MDV INFILTRATI ONE (10:19)
[2020-10-16] MEDS: HEPARIN 10,000 UNITS/10 ML VIAL ONE ×3 (10:51→10:53)
--- NOTE | 2020-10-16 11:02 | Operative Report ---
Operative Report Operative Report: Exam: Ultrasound and fluoroscopic guided placement of tunneled hemodialysis catheter Clinical indication: Patient with a history of renal failure requiring longer term dialysis access Date: 10/16/2020 Procedure: Following an explanation of the risks, benefits and alternatives; written informed consent was obtained. The patient was brought to the [employer] and placed in supine position on the examination table. Initial ultrasound evaluation of her neck demonstrated a patent right internal jugular vein. The patient's right neck and chest wall were prepped and draped in the usual sterile fashion. 1% lidocaine was used for anesthesia. Under ultrasound guidance, the right internal jugular vein was cannulated with a 7 cm 18-gauge needle. A 0.035 guidewire was advanced into the IVC under fluoroscopy for anchoring and to document intravenous positioning. The needle was removed. An appropriate catheter exit site was chosen along the lateral right chest wall. 1% lidocaine was used for anesthesia at the catheter exit site and along the tunnel tract. A Bard 19 cm glidepath tunneled hemodialysis catheter was then tunneled antegrade from the catheter exit site to the venotomy site. Following serial dilation over the guidewire under fluoroscopy, a 15 [place] peel-away sheath was placed over the guidewire under fluoroscopy and advanced centrally. The trocar and guidewire were removed and the catheter inserted through the peel-away sheath. The peel-away sheath was removed and the catheter tip positioned in the proximal right atrium. Both ports flushed and aspirated easily and were then locked with appropriate volumes of heparin. The venotomy was closed using 4-0 Vicryl suture and Dermabond. The catheter exit site was approximated using 3-0 Vicryl suture and Dermabond. Sterile dressings were applied. The patient tolerated the procedure well. There were no immediate postprocedure complications. Conscious sedation was performed under the guidance of radiologic nursing. Continuous cardiopulmonary monitoring was utilized. Impression: Ultrasound and fluoroscopic guided placement of tunneled hemodialysis catheter via the right internal jugular vein.
--- NOTE | 2020-10-16 11:25 | Progress Note ---
Assessment and Plan Assessment and plan: This is a 25-year-old female with depression, PTSD, anxiety who is admitted for intentional ingestion of ethylene glycol Suicide attempt Patient denies any suicidal ideation at this time Behavioral health consulted Patient needs to be restarted on her depression/anxiety medications Ethylene Glycol Poisoning Fomepizole 15 mg/kg every 12 hours Monitor ABG Monitor ethylene glycol levels, spoke with the lab, should have results sometime this afternoon. Acute Kidney Injury 2/2 Ethylene Glycol Poisoning Nephrology consulted Hemodialysis catheter placed, patient receiving daily hemodialysis due to worsening creatinine Patient on fluids with bicarb - patient to have permcath placed, may need dialysis after dc Major depressive disorder Restart home medications Metabolic Acidosis d/t ethylene glycol Fluids with bicarb Leukocytosis. Downtrending Continue antibiotics Hyperkalemia Resolved Hypokalemia Potassium supplementation DVT CODE STATUS: Full Disposition: Continue treatment for ethylene glycol intoxication and CATRACHITO History Interval history: 10/15/2020: Patient seen and examined, no overnight events, states that she feels as if she has generalized body pain. No fevers or chills. No nausea vomiting. 10/16/2020: Patient seen and examined, came back from dialysis, somewhat lethargic. No nausea or vomiting tolerating diet. Hospitalist Physical - Physical exam Narrative exam: General appearance: no acute distress, well-nourished EENT: PERRL, EOM intact, hearing intact, clear oral mucosa Neck: Present: supple, normal ROM Respiratory: bilateral CTA, negative: rales, rhonchi, wheezing Cardiovascular: Regular rate/rhythm, Normal S1 & S2. No gallop, rub, femoral catheter in right leg Extremities: no ischemia, No edema, normal temperature, normal color, Full ROM Abdominal: soft, no tenderness, non-distended, normal bowel sounds Integumentary: Present: clear, warm, dry no wounds, no erythema noted Psychiatric: appropriate mood/affect, intact judgment & insight Neurologic: CNII-XII intact, moves all extremities, no sensory or motor abnormalities - Constitutional Vitals: Temp Pulse Resp BP Pulse Ox 98.4 F 67 17 109/66 97 10/16/20 07:41 10/16/20 10:00 10/16/20 08:15 10/16/20 07:41 10/16/20 08:15 General appearance: Present: no acute distress, well-nourished Results - Labs CBC & Chem 7: 10/16/20 04:27 10/16/20 04:27 Labs: Laboratory Last Values WBC 11.3 K/mm3 (4.5-11.0) H 10/16/20 04:27 RBC 3.50 M/mm3 (3.65-5.03) L 10/16/20 04:27 Hgb 10.9 gm/dl (10.1-14.3) 10/16/20 04:27 Hct 31.5 % (30.3-42.9) 10/16/20 04:27 MCV 90 fl (79-97) 10/16/20 04:27 MCH 31 pg (28-32) 10/16/20 04:27 MCHC 35 % (30-34) H 10/16/20 04:27 RDW 13.3 % (13.2-15.2) 10/16/20 04:27 Plt Count 223 K/mm3 (140-440) 10/16/20 04:27 Lymph % (Auto) 15.0 % (13.4-35.0) 10/15/20 04:24 [place] % (Auto) 7.9 % (0.0-7.3) H 10/15/20 04:24 Eos % (Auto) 0.1 % (0.0-4.3) 10/15/20 04:24 Baso % (Auto) 0.4 % (0.0-1.8) 10/15/20 04:24 Lymph # (Auto) 2.4 K/mm3 (1.2-5.4) 10/15/20 04:24 [place] # (Auto) 1.3 K/mm3 (0.0-0.8) H 10/15/20 04:24 Eos # (Auto) 0.0 K/mm3 (0.0-0.4) 10/15/20 04:24 Baso # (Auto) 0.1 K/mm3 (0.0-0.1) 10/15/20 04:24 Add Manual Diff Complete 10/13/20 21:40 Total Counted 100 10/13/20 21:40 Seg Neutrophils % 76.6 % (40.0-70.0) H 10/15/20 04:24 Seg Neuts % (Manual) 68.0 % (40.0-70.0) 10/13/20 21:40 Lymphocytes % (Manual) 23.0 % (13.4-35.0) 10/13/20 21:40 Monocytes % (Manual) 9.0 % (0.0-7.3) H 10/13/20 21:40 Nucleated RBC % Not Reportable 10/13/20 21:40 Seg Neutrophils # 12.3 K/mm3 (1.8-7.7) H 10/15/20 04:24 Seg Neutrophils # Man 15.0 K/mm3 (1.8-7.7) H 10/13/20 21:40 Band Neutrophils # 0.0 K/mm3 10/13/20 21:40 Lymphocytes # (Manual) 5.1 K/mm3 (1.2-5.4) 10/13/20 21:40 Abs React Lymphs (Man) 0.0 K/mm3 10/13/20 21:40 Monocytes # (Manual) 2.0 K/mm3 (0.0-0.8) H 10/13/20 21:40 Eosinophils # (Manual) 0.0 K/mm3 (0.0-0.4) 10/13/20 21:40 Basophils # (Manual) 0.0 K/mm3 (0.0-0.1) 10/13/20 21:40 Metamyelocytes # 0.0 K/mm3 10/13/20 21:40 Myelocytes # 0.0 K/mm3 10/13/20 21:40 Promyelocytes # 0.0 K/mm3 10/13/20 21:40 Blast Cells # 0.0 K/mm3 10/13/20 21:40 WBC Morphology Not Reportable 10/13/20 21:40 Hypersegmented Neuts Not Reportable 10/13/20 21:40 Hyposegmented Neuts Not Reportable 10/13/20 21:40 Hypogranular Neuts Not Reportable 10/13/20 21:40 Smudge Cells Not Reportable 10/13/20 21:40 Toxic Granulation Not Reportable 10/13/20 21:40 Toxic Vacuolation Not Reportable 10/13/20 21:40 Dohle Bodies Not Reportable 10/13/20 21:40 Pelger-Huet Anomaly Not Reportable 10/13/20 21:40 Benjy Rods Not Reportable 10/13/20 21:40 Platelet Estimate Not Reportable 10/13/20 21:40 Clumped Platelets Not Reportable 10/13/20 21:40 Plt Clumps, EDTA Not Reportable 10/13/20 21:40 Large Platelets Not Reportable 10/13/20 21:40 Giant Platelets Not Reportable 10/13/20 21:40 Platelet Satelliting Not Reportable 10/13/20 21:40 Plt Morphology Comment Not Reportable 10/13/20 21:40 RBC Morphology Normal 10/13/20 21:40 Dimorphic RBCs Not Reportable 10/13/20 21:40 Polychromasia Not Reportable 10/13/20 21:40 Hypochromasia Not Reportable 10/13/20 21:40 Poikilocytosis Not Reportable 10/13/20 21:40 Anisocytosis Not Reportable 10/13/20 21:40 Microcytosis Not Reportable 10/13/20 21:40 Macrocytosis Not Reportable 10/13/20 21:40 Spherocytes Not Reportable 10/13/20 21:40 Pappenheimer Bodies Not Reportable 10/13/20 21:40 Sickle Cells Not Reportable 10/13/20 21:40 Target Cells Not Reportable 10/13/20 21:40 Tear Drop Cells Not Reportable 10/13/20 21:40 Ovalocytes Not Reportable 10/13/20 21:40 Helmet Cells Not Reportable 10/13/20 21:40 Jeong-Alleghany Bodies Not Reportable 10/13/20 21:40 [place]bel Rings Not Reportable 10/13/20 21:40 [place] Cells Not Reportable 10/13/20 21:40 Bite Cells Not Reportable 10/13/20 21:40 Crenated Cell Not Reportable 10/13/20 21:40 Elliptocytes Not Reportable 10/13/20 21:40 Acanthocytes (Spur) Not Reportable 10/13/20 21:40 Rouleaux Not Reportable 10/13/20 21:40 Hemoglobin C Crystals Not Reportable 10/13/20 21:40 Schistocytes Not Reportable 10/13/20 21:40 Malaria parasites Not Reportable 10/13/20 21:40 Koffi Bodies Not Reportable 10/13/20 21:40 Hem Pathologist Commnt No 10/13/20 21:40 ABG pH 7.096 pH Units (7.350-7.450) L* 10/14/20 01:30 POC ABG pCO2 10.5 mmHg (32.0-48.0) L 10/13/20 22:07 ABG pCO2 8.1 mm Hg 10/14/20 01:30 POC ABG pO2 131.9 mmHg (83-108) H 10/13/20 22:07 ABG pO2 125.0 mm Hg (80.0-90.0) H 10/14/20 01:30 POC ABG HCO3 2.4 10/13/20 22:07 ABG HCO3 2.4 mmol/L (20.0-26.0) L 10/14/20 01:30 ABG O2 Saturation 97.8 % (95.0-99.0) 10/14/20 01:30 ABG O2 Content 21.6 (0.0-44) 10/14/20 01:30 POC ABG Base Excess -27.2 10/13/20 22:07 ABG Base Excess -24.6 mmol/L (-2.0-3.0) L 10/14/20 01:30 ABG Hemoglobin 15.9 gm/dl (12.0-16.0) 10/14/20 01:30 ABG Oxyhemoglobin 97.5 (94-98) 10/13/20 22:07 ABG Carboxyhemoglobin 1.0 % (0.0-5.0) 10/14/20 01:30 ABG Methemoglobin 0.6 % (0.0-1.5) 10/14/20 01:30 ABG Sodium 142.3 mmol/L (136.0-145.0) 10/13/20 22:07 ABG Potassium 5.4 mmol/L (3.40-4.50) H 10/13/20 22:07 ABG Chloride 114.0 mmol/L (98-107) H 10/13/20 22:07 ABG Glucose 97 mg/dL (65-95) H 10/13/20 22:07 VBG pH 7.281 (7.320-7.420) L 10/14/20 Unknown Oxyhemoglobin 96.3 % (95.0-99.0) 10/14/20 01:30 Carboxyhemoglobin 0.4 (0.5-1.5) L 10/13/20 22:07 FiO2 21 % 10/14/20 01:30 FiO2 % 21.0 10/13/20 22:07 Sodium 140 mmol/L (137-145) 10/16/20 04:27 Potassium 3.4 mmol/L (3.6-5.0) L 10/16/20 04:27 Chloride 102.4 mmol/L (98-107) 10/16/20 04:27 Carbon Dioxide 27 mmol/L (22-30) 10/16/20 04:27 Anion Gap 14 mmol/L 10/16/20 04:27 BUN 11 mg/dL (7-17) 10/16/20 04:27 Creatinine 4.1 mg/dL (0.6-1.2) H D 10/16/20 04:27 Estimated GFR 13 ml/min 10/16/20 04:27 BUN/Creatinine Ratio 3 % 10/16/20 04:27 Glucose 90 mg/dL (65-100) 10/16/20 04:27 Osmolality 320 Mosm/kg 10/13/20 21:46 Calcium 7.8 mg/dL (8.4-10.2) L 10/16/20 04:27 Magnesium 2.10 mg/dL (1.7-2.3) 10/14/20 05:12 Total Bilirubin 0.50 mg/dL (0.1-1.2) 10/15/20 04:24 AST 23 units/L (5-40) 10/15/20 04:24 ALT 7 units/L (7-56) 10/15/20 04:24 Alkaline Phosphatase 57 units/L (35-129) 10/15/20 04:24 Total Protein 5.3 g/dL (6.3-8.2) L 10/15/20 04:24 Albumin 3.3 g/dL (3.9-5) L 10/15/20 04:24 Albumin/Globulin Ratio 1.7 % 10/15/20 04:24 HCG, Qual Negative (Negative) 10/13/20 21:40 Arterial Blood Glucose 97 mg/dL (65-95) H 10/13/20 22:07 Arterial Blood Ionized Calcium 5.3 mg/dL (4.6-5.3) 10/13/20 22:07 Urine Color Yellow (Yellow) 10/13/20 Unknown Urine Turbidity Slightly-cloudy (Clear) 10/13/20 Unknown Urine pH 5.0 (5.0-7.0) 10/13/20 Unknown Ur Specific [place] 1.010 (1.003-1.030) 10/13/20 Unknown Urine Protein 100 mg/dl mg/dL (Negative) 10/13/20 Unknown Urine Glucose (UA) Neg mg/dL (Negative) 10/13/20 Unknown Urine Ketones Neg mg/dL (Negative) 10/13/20 Unknown Urine Blood Lg (Negative) 10/13/20 Unknown Urine Nitrite Neg (Negative) 10/13/20 Unknown Urine Bilirubin Neg (Negative) 10/13/20 Unknown Urine Urobilinogen < 2.0 mg/dL (<2.0) 10/13/20 Unknown Ur Leukocyte Esterase Sm (Negative) 10/13/20 Unknown Urine WBC (Auto) 5.0 /HPF (0.0-6.0) 10/13/20 Unknown Urine RBC (Auto) > 182.0 /HPF (0.0-6.0) 10/13/20 Unknown U Epithel Cells (Auto) 5.0 /HPF (0-13.0) 10/13/20 Unknown Urine Bacteria (Auto) 2+ /HPF (Negative) 10/13/20 Unknown Calcium Oxalate Crystal Few 10/13/20 Unknown Uric Acid Crystals 1+ 10/13/20 Unknown Urine Mucus Few /HPF 10/13/20 Unknown Urine Yeast (Budding) Few /HPF 10/13/20 Unknown Salicylates < 0.3 mg/dL (2.8-20.0) L 10/13/20 21:40 Urine Opiates Screen Presumptive negative 10/13/20 Unknown Urine Methadone Screen Presumptive negative 10/13/20 Unknown Acetaminophen 5.0 ug/mL (10.0-30.0) L 10/13/20 21:40 Ur Barbiturates Screen Presumptive negative 10/13/20 Unknown Ur Phencyclidine Scrn Presumptive negative 10/13/20 Unknown Ur Amphetamines Screen Presumptive negative 10/13/20 Unknown U Benzodiazepines Scrn Presumptive negative 10/13/20 Unknown Urine Cocaine Screen Presumptive negative 10/13/20 Unknown U Marijuana (THC) Screen Presumptive negative 10/13/20 Unknown Drugs of Abuse Note Disclamer 10/13/20 Unknown Ethylene Glycol TNR 10/14/20 15:52 Plasma/Serum Alcohol < 0.01 % (0-0.07) 10/13/20 21:40 Coronavirus (PCR) Negative (Negative) 10/14/20 Unknown Hepatitis A IgM Ab Non-reactive (NonReactive) 10/14/20 05:12 Hep Bs Antigen Non-reactive (Negative) 10/14/20 05:12 Hep B Core IgM Ab Non-reactive (NonReactive) 10/14/20 05:12 Hepatitis C Antibody Non-reactive (NonReactive) 10/14/20 05:12 Gomez/IV: Voiding Method Toilet Active Medications - Current Medications Current Medications: Generic Name Dose Route Start Last Admin Trade Name Freq PRN Reason Stop Dose Admin Acetaminophen 650 mg 10/14/20 00:31 Acetaminophen 325 Mg Tab PO Q4H PRN Pain MILD(1-3)/Fever >100.5/TAYLOR Famotidine 20 mg 10/16/20 10:00 10/16/20 09:59 Famotidine 20 Mg/2 Ml Inj IV 20 mg DAILY MINH Administration Heparin Sodium (Porcine) 5,000 unit 10/14/20 06:00 10/16/20 05:30 Heparin 5,000 Unit/1 Ml Vial SUB-Q 5,000 unit Q8HR [facility] Administration Sodium Chloride 100 mls @ 999 mls/hr 10/14/20 00:31 Nacl 0.9% IV PHANI PRN Hypotension Ceftriaxone Sodium 2 gm in 100 mls @ 200 mls/hr 10/14/20 01:00 10/16/20 09:58 Rocephin/Ns 2 Gm/100 Ml IV 10/19/20 10:29 200 mls/hr Q24HR [facility] Administration Protocol Fomepizole 1,080 mg/ Sodium 101.08 mls @ 202.16 mls/hr 10/15/20 11:00 10/15/20 23:59 Chloride IV Not Given Q12H [facility] Sodium Bicarbonate 150 meq/ 1,150 mls @ 150 mls/hr 10/14/20 12:00 Dextrose IV DIRECT [facility] Ondansetron HCl 4 mg 10/14/20 00:31 Ondansetron 4 Mg/2 Ml Inj IV Q8H PRN Nausea And Vomiting Sodium Chloride 10 ml 10/14/20 10:00 10/16/20 09:58 Sodium Chloride 0.9% 10 Ml Flush Syringe IV 10 ml BID MINH Administration Sodium Chloride 10 ml 10/14/20 00:31 Sodium Chloride 0.9% 10 Ml Flush Syringe IV PRN PRN LINE FLUSH
[2020-10-16] MEDS: SODIUM CHLORIDE 0.9% IV SCH (15:36)
[2020-10-16] MEDS: FOMEPIZOLEV IV SCH (15:36)
[2020-10-16] MEDS: oxyCODONE /ACETAMINOPHEN 5-325MG TAB PO PRN (16:32)
[2020-10-16] MEDS: ONDANSETRON 4 MG/2 ML INJ IV PRN ×2 (17:44→22:11)
[2020-10-17] MEDS: FOMEPIZOLEV IV SCH (02:25)
[2020-10-17] MEDS: SODIUM CHLORIDE 0.9% IV SCH (02:25)
[2020-10-17 06:07] LABS: Calcium 7.8 mg/dL (8.4-10.2)
[2020-10-17] MEDS ORDERED: POTASSIUM CHLORIDE ER 20 MEQ TAB PO ONE (10:19)
[2020-10-17] MEDS: HEPARIN 5,000 UNIT/1 ML VIAL SUB-Q SCH ×3 (10:59→22:07)
--- NOTE | 2020-10-17 11:08 | Progress Note ---
Assessment and Plan - Patient Problems (1) Ethylene glycol poisoning Current Visit: Yes Status: Acute Qualifiers: Encounter type: initial encounter Injury intent: intentional self-harm Qualified Code(s): T52.8X2A - Toxic effect of other organic solvents, intentional self-harm, initial encounter Plan to address problem: Patient was started on bicarbonate drip, Fomepizole. Dialysis was initiated on presentation due to severe metabolic acidosis. Hemodialysis daily. Ethylene glycol level is now undetectable. Will hold dialysis after today and observe for renal recovery over the weekend. Started arrangements for outpatient dialysis in case it is needed. Further management depending on clinical course. (2) Acute kidney failure Current Visit: Yes Status: Acute Plan to address problem: Acute kidney failure toxin induced. Kidney function is finally a bit better. Hold dialysis after today's treatment. Follow-up kidney function over the weekend (3) Hyperkalemia Current Visit: Yes Status: Acute Plan to address problem: Potassium has improved with dialysis. Potassium is actually now low. Dialyze on a high potassium bath. Follow-up potassium level (4) Leukocytosis Current Visit: Yes Status: Acute Plan to address problem: Probably stress induced. Follow-up cultures (5) Metabolic acidosis due to ethylene glycol Current Visit: Yes Status: Acute Plan to address problem: Bicarbonate is now high. Discontinue bicarbonate drip. (6) MDD (major depressive disorder) Current Visit: Yes Status: Acute Plan to address problem: Resume antidepressants per Psychiatrist. (7) Metabolic encephalopathy Current Visit: Yes Status: Acute Plan to address problem: Resolved Subjective Date of service: 10/17/20 Principal diagnosis: Ethylene glycol poisoning, metabolic acidosis, hyperkalemia, acute kidney Interval history: Patient seen lying in bed. Complains of nausea overnight. No vomiting. No shortness of breath. She had permacath placed yesterday and tolerated dialysis with no complications. Access also function well Objective - Exam Narrative Exam: Young lady lying in bed in no acute distress HEENT: NCAT, Neck: Supple, no venous distention CVS: S1S2 RRR with no murmur, rub or gallop Chest: Clear to auscultation Abdomen: Protuberant, soft, nontender, no organomegaly, bowel sounds are present Extremities: No edema Genitourinary deferred Skin warm and dry Neuro: Awake, alert no focal deficits - Vital Signs Vital signs: Vital Signs - 12hr 10/16/20 10/17/20 10/17/20 23:43 04:29 04:30 Temperature 98.2 F 98.2 F Pulse Rate 73 76 80 Respiratory 18 18 Rate Blood Pressure 113/72 106/66 O2 Sat by Pulse 97 94 96 Oximetry 10/17/20 10/17/20 08:40 09:01 Temperature 98.0 F Pulse Rate 87 87 Respiratory 18 Rate Blood Pressure 124/87 O2 Sat by Pulse 96 Oximetry - Lab 10/16/20 04:27 10/17/20 05:07 Most recent lab results ABG pH 7.096 pH Units (7.350-7.450) L* 10/14/20 01:30 ABG pCO2 8.1 mm Hg 10/14/20 01:30 ABG pO2 125.0 mm Hg (80.0-90.0) H 10/14/20 01:30 ABG HCO3 2.4 mmol/L (20.0-26.0) L 10/14/20 01:30 ABG O2 Saturation 97.8 % (95.0-99.0) 10/14/20 01:30 Calcium 7.8 mg/dL (8.4-10.2) L 10/17/20 05:07 Phosphorus 2.30 mg/dL (2.5-4.5) L 10/17/20 05:07 Magnesium 1.50 mg/dL (1.7-2.3) L 10/17/20 05:07 Medications & Allergies - Medications Allergies/Adverse Reactions: Allergies No Known Allergies Allergy (Unverified 06/29/13 00:00) Home Medications: Home Medications Medication Instructions Recorded Confirmed Last Taken Type Eszopiclone [Lunesta] 2 mg PO DAILY 10/14/20 10/14/20 2 Weeks Ago History ~09/30/20 Lexapro 7.5 mg PO DAILY 10/14/20 10/14/20 2 Weeks Ago History ~09/30/20 Remeron 10 mg PO DAILY 10/14/20 10/14/20 2 Weeks Ago History ~09/30/20 Active Medications: Generic Name Dose Route Start Last Admin Trade Name Freq PRN Reason Stop Dose Admin Acetaminophen 650 mg 10/14/20 00:31 Acetaminophen 325 Mg Tab PO Q4H PRN Pain MILD(1-3)/Fever >100.5/TAYLOR Famotidine 20 mg 10/16/20 10:00 10/16/20 09:59 Famotidine 20 Mg/2 Ml Inj IV 20 mg DAILY MINH Administration Heparin Sodium (Porcine) 5,000 unit 10/14/20 06:00 10/16/20 22:01 Heparin 5,000 Unit/1 Ml Vial SUB-Q 5,000 unit Q8HR MINH Administration Sodium Chloride 100 mls @ 999 mls/hr 10/14/20 00:31 Nacl 0.9% IV PHANI PRN Hypotension Ceftriaxone Sodium 2 gm in 100 mls @ 200 mls/hr 10/14/20 01:00 10/16/20 09:58 Rocephin/Ns 2 Gm/100 Ml IV 10/19/20 10:29 200 mls/hr Q24HR MINH Administration Protocol Sodium Bicarbonate 150 meq/ 1,150 mls @ 150 mls/hr 10/14/20 12:00 Dextrose IV DIRECT [facility] Magnesium Chloride 64 mg 10/17/20 11:00 Magnesium Chloride Er 64 Mg Tab PO QDAY [facility] Ondansetron HCl 4 mg 10/14/20 00:31 10/16/20 22:11 Ondansetron 4 Mg/2 Ml Inj IV 4 mg Q8H PRN Administration Nausea And Vomiting Oxycodone/Acetaminophen 1 tab 10/16/20 16:00 10/16/20 16:32 Oxycodone /Acetaminophen 5-325mg Tab PO 1 tab Q6H PRN Administration Pain, Moderate (4-6) Potassium Phos/Sodium Phos 1 each 10/17/20 14:00 Phos-Nak Powder Packet PO 10/19/20 06:01 Q8HR MINH Sodium Chloride 10 ml 10/14/20 10:00 10/17/20 02:25 Sodium Chloride 0.9% 10 Ml Flush Syringe IV 10 ml BID MINH Administration Sodium Chloride 10 ml 10/14/20 00:31 Sodium Chloride 0.9% 10 Ml Flush Syringe IV PRN PRN LINE FLUSH
[2020-10-17] MEDS: oxyCODONE /ACETAMINOPHEN 5-325MG TAB PO PRN ×2 (11:45→16:58)
[2020-10-17] MEDS: FAMOTIDINE 20 MG/2 ML INJ IV SCH (11:45)
[2020-10-17] MEDS: MAGNESIUM CHLORIDE ER 64 MG TAB PO SCH (11:46)
--- NOTE | 2020-10-17 11:56 | Progress Note ---
Assessment and Plan Assessment and plan: This is a 25-year-old female with depression, PTSD, anxiety who is admitted for intentional ingestion of ethylene glycol Suicide attempt Patient denies any suicidal ideation at this time Behavioral health consulted Patient needs to be restarted on her depression/anxiety medications Ethylene Glycol Poisoning Ethylene glycol levels undetectable DC fomepizole 15 mg/kg every 12 hours Monitor ABG Acute Kidney Injury 2/2 Ethylene Glycol Poisoning Nephrology consulted Permacath placed, continue dialysis and observe patient's kidney function over the weekend Patient on fluids with bicarb Major depressive disorder Restart home medications per psychiatry Metabolic Acidosis d/t ethylene glycol Fluids with bicarb Leukocytosis. Downtrending Continue antibiotics Hyperkalemia Resolved Hypokalemia Potassium supplementation DVT CODE STATUS: Full Disposition: Continue treatment for CATRACHITO History Interval history: 10/15/2020: Patient seen and examined, no overnight events, states that she feels as if she has generalized body pain. No fevers or chills. No nausea vomiting. 10/16/2020: Patient seen and examined, came back from dialysis, somewhat lethargic. No nausea or vomiting tolerating diet. 10/17/2020: Patient has some pain in her chest after permacath placed, controlled with Percocet. No nausea vomiting tolerating diet. Hospitalist Physical - Physical exam Narrative exam: General appearance: no acute distress, well-nourished EENT: PERRL, EOM intact, hearing intact, clear oral mucosa Neck: Present: supple, normal ROM Respiratory: bilateral CTA, negative: rales, rhonchi, wheezing Cardiovascular: Regular rate/rhythm, Normal S1 & S2. No gallop, rub, permacath in chest Extremities: no ischemia, No edema, normal temperature, normal color, Full ROM Abdominal: soft, no tenderness, non-distended, normal bowel sounds Integumentary: Present: clear, warm, dry no wounds, no erythema noted Psychiatric: appropriate mood/affect, intact judgment & insight Neurologic: CNII-XII intact, moves all extremities, no sensory or motor abnormalities - Constitutional Vitals: Temp Pulse Resp BP Pulse Ox 98.0 F 87 18 124/87 96 10/17/20 08:40 10/17/20 09:01 10/17/20 08:40 10/17/20 08:40 10/17/20 08:40 General appearance: Present: no acute distress, well-nourished Results - Labs CBC & Chem 7: 10/16/20 04:27 10/17/20 05:07 Labs: Laboratory Last Values WBC 11.3 K/mm3 (4.5-11.0) H 10/16/20 04:27 RBC 3.50 M/mm3 (3.65-5.03) L 10/16/20 04:27 Hgb 10.9 gm/dl (10.1-14.3) 10/16/20 04:27 Hct 31.5 % (30.3-42.9) 10/16/20 04:27 MCV 90 fl (79-97) 10/16/20 04:27 MCH 31 pg (28-32) 10/16/20 04:27 MCHC 35 % (30-34) H 10/16/20 04:27 RDW 13.3 % (13.2-15.2) 10/16/20 04:27 Plt Count 223 K/mm3 (140-440) 10/16/20 04:27 Lymph % (Auto) 15.0 % (13.4-35.0) 10/15/20 04:24 [place] % (Auto) 7.9 % (0.0-7.3) H 10/15/20 04:24 Eos % (Auto) 0.1 % (0.0-4.3) 10/15/20 04:24 Baso % (Auto) 0.4 % (0.0-1.8) 10/15/20 04:24 Lymph # (Auto) 2.4 K/mm3 (1.2-5.4) 10/15/20 04:24 [place] # (Auto) 1.3 K/mm3 (0.0-0.8) H 10/15/20 04:24 Eos # (Auto) 0.0 K/mm3 (0.0-0.4) 10/15/20 04:24 Baso # (Auto) 0.1 K/mm3 (0.0-0.1) 10/15/20 04:24 Add Manual Diff Complete 10/13/20 21:40 Total Counted 100 10/13/20 21:40 Seg Neutrophils % 76.6 % (40.0-70.0) H 10/15/20 04:24 Seg Neuts % (Manual) 68.0 % (40.0-70.0) 10/13/20 21:40 Lymphocytes % (Manual) 23.0 % (13.4-35.0) 10/13/20 21:40 Monocytes % (Manual) 9.0 % (0.0-7.3) H 10/13/20 21:40 Nucleated RBC % Not Reportable 10/13/20 21:40 Seg Neutrophils # 12.3 K/mm3 (1.8-7.7) H 10/15/20 04:24 Seg Neutrophils # Man 15.0 K/mm3 (1.8-7.7) H 10/13/20 21:40 Band Neutrophils # 0.0 K/mm3 10/13/20 21:40 Lymphocytes # (Manual) 5.1 K/mm3 (1.2-5.4) 10/13/20 21:40 Abs React Lymphs (Man) 0.0 K/mm3 10/13/20 21:40 Monocytes # (Manual) 2.0 K/mm3 (0.0-0.8) H 10/13/20 21:40 Eosinophils # (Manual) 0.0 K/mm3 (0.0-0.4) 10/13/20 21:40 Basophils # (Manual) 0.0 K/mm3 (0.0-0.1) 10/13/20 21:40 Metamyelocytes # 0.0 K/mm3 10/13/20 21:40 Myelocytes # 0.0 K/mm3 10/13/20 21:40 Promyelocytes # 0.0 K/mm3 10/13/20 21:40 Blast Cells # 0.0 K/mm3 10/13/20 21:40 WBC Morphology Not Reportable 10/13/20 21:40 Hypersegmented Neuts Not Reportable 10/13/20 21:40 Hyposegmented Neuts Not Reportable 10/13/20 21:40 Hypogranular Neuts Not Reportable 10/13/20 21:40 Smudge Cells Not Reportable 10/13/20 21:40 Toxic Granulation Not Reportable 10/13/20 21:40 Toxic Vacuolation Not Reportable 10/13/20 21:40 Dohle Bodies Not Reportable 10/13/20 21:40 Pelger-Huet Anomaly Not Reportable 10/13/20 21:40 Benjy Rods Not Reportable 10/13/20 21:40 Platelet Estimate Not Reportable 10/13/20 21:40 Clumped Platelets Not Reportable 10/13/20 21:40 Plt Clumps, EDTA Not Reportable 10/13/20 21:40 Large Platelets Not Reportable 10/13/20 21:40 Giant Platelets Not Reportable 10/13/20 21:40 Platelet Satelliting Not Reportable 10/13/20 21:40 Plt Morphology Comment Not Reportable 10/13/20 21:40 RBC Morphology Normal 10/13/20 21:40 Dimorphic RBCs Not Reportable 10/13/20 21:40 Polychromasia Not Reportable 10/13/20 21:40 Hypochromasia Not Reportable 10/13/20 21:40 Poikilocytosis Not Reportable 10/13/20 21:40 Anisocytosis Not Reportable 10/13/20 21:40 Microcytosis Not Reportable 10/13/20 21:40 Macrocytosis Not Reportable 10/13/20 21:40 Spherocytes Not Reportable 10/13/20 21:40 Pappenheimer Bodies Not Reportable 10/13/20 21:40 Sickle Cells Not Reportable 10/13/20 21:40 Target Cells Not Reportable 10/13/20 21:40 Tear Drop Cells Not Reportable 10/13/20 21:40 Ovalocytes Not Reportable 10/13/20 21:40 Helmet Cells Not Reportable 10/13/20 21:40 [place]ar Bodies Not Reportable 10/13/20 21:40 [place] Rings Not Reportable 10/13/20 21:40 [place] Cells Not Reportable 10/13/20 21:40 Bite Cells Not Reportable 10/13/20 21:40 Crenated Cell Not Reportable 10/13/20 21:40 Elliptocytes Not Reportable 10/13/20 21:40 Acanthocytes (Spur) Not Reportable 10/13/20 21:40 Rouleaux Not Reportable 10/13/20 21:40 Hemoglobin C Crystals Not Reportable 10/13/20 21:40 Schistocytes Not Reportable 10/13/20 21:40 Malaria parasites Not Reportable 10/13/20 21:40 Koffi Bodies Not Reportable 10/13/20 21:40 Hem Pathologist Commnt No 10/13/20 21:40 ABG pH 7.096 pH Units (7.350-7.450) L* 10/14/20 01:30 POC ABG pCO2 10.5 mmHg (32.0-48.0) L 10/13/20 22:07 ABG pCO2 8.1 mm Hg 10/14/20 01:30 POC ABG pO2 131.9 mmHg (83-108) H 10/13/20 22:07 ABG pO2 125.0 mm Hg (80.0-90.0) H 10/14/20 01:30 POC ABG HCO3 2.4 10/13/20 22:07 ABG HCO3 2.4 mmol/L (20.0-26.0) L 10/14/20 01:30 ABG O2 Saturation 97.8 % (95.0-99.0) 10/14/20 01:30 ABG O2 Content 21.6 (0.0-44) 10/14/20 01:30 POC ABG Base Excess -27.2 10/13/20 22:07 ABG Base Excess -24.6 mmol/L (-2.0-3.0) L 10/14/20 01:30 ABG Hemoglobin 15.9 gm/dl (12.0-16.0) 10/14/20 01:30 ABG Oxyhemoglobin 97.5 (94-98) 10/13/20 22:07 ABG Carboxyhemoglobin 1.0 % (0.0-5.0) 10/14/20 01:30 ABG Methemoglobin 0.6 % (0.0-1.5) 10/14/20 01:30 ABG Sodium 142.3 mmol/L (136.0-145.0) 10/13/20 22:07 ABG Potassium 5.4 mmol/L (3.40-4.50) H 10/13/20 22:07 ABG Chloride 114.0 mmol/L (98-107) H 10/13/20 22:07 ABG Glucose 97 mg/dL (65-95) H 10/13/20 22:07 VBG pH 7.281 (7.320-7.420) L 10/14/20 Unknown Oxyhemoglobin 96.3 % (95.0-99.0) 10/14/20 01:30 Carboxyhemoglobin 0.4 (0.5-1.5) L 10/13/20 22:07 FiO2 21 % 10/14/20 01:30 FiO2 % 21.0 10/13/20 22:07 Sodium 138 mmol/L (137-145) 10/17/20 05:07 Potassium 3.3 mmol/L (3.6-5.0) L 10/17/20 05:07 Chloride 100.4 mmol/L (98-107) 10/17/20 05:07 Carbon Dioxide 28 mmol/L (22-30) 10/17/20 05:07 Anion Gap 13 mmol/L 10/17/20 05:07 BUN 7 mg/dL (7-17) 10/17/20 05:07 Creatinine 3.5 mg/dL (0.6-1.2) H 10/17/20 05:07 Estimated GFR 16 ml/min 10/17/20 05:07 BUN/Creatinine Ratio 2 % 10/17/20 05:07 Glucose 85 mg/dL (65-100) 10/17/20 05:07 Osmolality 320 Mosm/kg 10/13/20 21:46 Calcium 7.8 mg/dL (8.4-10.2) L 10/17/20 05:07 Phosphorus 2.30 mg/dL (2.5-4.5) L 10/17/20 05:07 Magnesium 1.50 mg/dL (1.7-2.3) L 10/17/20 05:07 Total Bilirubin 0.50 mg/dL (0.1-1.2) 10/15/20 04:24 AST 23 units/L (5-40) 10/15/20 04:24 ALT 7 units/L (7-56) 10/15/20 04:24 Alkaline Phosphatase 57 units/L (35-129) 10/15/20 04:24 Total Protein 5.3 g/dL (6.3-8.2) L 10/15/20 04:24 Albumin 3.3 g/dL (3.9-5) L 10/15/20 04:24 Albumin/Globulin Ratio 1.7 % 10/15/20 04:24 HCG, Qual Negative (Negative) 10/13/20 21:40 Arterial Blood Glucose 97 mg/dL (65-95) H 10/13/20 22:07 Arterial Blood Ionized Calcium 5.3 mg/dL (4.6-5.3) 10/13/20 22:07 Urine Color Yellow (Yellow) 10/13/20 Unknown Urine Turbidity Slightly-cloudy (Clear) 10/13/20 Unknown Urine pH 5.0 (5.0-7.0) 10/13/20 Unknown Ur Specific [place] 1.010 (1.003-1.030) 10/13/20 Unknown Urine Protein 100 mg/dl mg/dL (Negative) 10/13/20 Unknown Urine Glucose (UA) Neg mg/dL (Negative) 10/13/20 Unknown Urine Ketones Neg mg/dL (Negative) 10/13/20 Unknown Urine Blood Lg (Negative) 10/13/20 Unknown Urine Nitrite Neg (Negative) 10/13/20 Unknown Urine Bilirubin Neg (Negative) 10/13/20 Unknown Urine Urobilinogen < 2.0 mg/dL (<2.0) 10/13/20 Unknown Ur Leukocyte Esterase Sm (Negative) 10/13/20 Unknown Urine WBC (Auto) 5.0 /HPF (0.0-6.0) 10/13/20 Unknown Urine RBC (Auto) > 182.0 /HPF (0.0-6.0) 10/13/20 Unknown U Epithel Cells (Auto) 5.0 /HPF (0-13.0) 10/13/20 Unknown Urine Bacteria (Auto) 2+ /HPF (Negative) 10/13/20 Unknown Calcium Oxalate Crystal Few 10/13/20 Unknown Uric Acid Crystals 1+ 10/13/20 Unknown Urine Mucus Few /HPF 10/13/20 Unknown Urine Yeast (Budding) Few /HPF 10/13/20 Unknown Salicylates < 0.3 mg/dL (2.8-20.0) L 10/13/20 21:40 Urine Opiates Screen Presumptive negative 10/13/20 Unknown Urine Methadone Screen Presumptive negative 10/13/20 Unknown Acetaminophen 5.0 ug/mL (10.0-30.0) L 10/13/20 21:40 Ur Barbiturates Screen Presumptive negative 10/13/20 Unknown Ur Phencyclidine Scrn Presumptive negative 10/13/20 Unknown Ur Amphetamines Screen Presumptive negative 10/13/20 Unknown U Benzodiazepines Scrn Presumptive negative 10/13/20 Unknown Urine Cocaine Screen Presumptive negative 10/13/20 Unknown U Marijuana (THC) Screen Presumptive negative 10/13/20 Unknown Drugs of Abuse Note Disclamer 10/13/20 Unknown Ethylene Glycol See scanned result 10/16/20 04:27 Plasma/Serum Alcohol < 0.01 % (0-0.07) 10/13/20 21:40 Coronavirus (PCR) Negative (Negative) 10/14/20 Unknown Hepatitis A IgM Ab Non-reactive (NonReactive) 10/14/20 05:12 Hep Bs Antigen Non-reactive (Negative) 10/14/20 05:12 Hep B Core IgM Ab Non-reactive (NonReactive) 10/14/20 05:12 Hepatitis C Antibody Non-reactive (NonReactive) 10/14/20 05:12 Gomez/IV: Voiding Method Toilet Active Medications - Current Medications Current Medications: Generic Name Dose Route Start Last Admin Trade Name Freq PRN Reason Stop Dose Admin Acetaminophen 650 mg 10/14/20 00:31 Acetaminophen 325 Mg Tab PO Q4H PRN Pain MILD(1-3)/Fever >100.5/TAYLOR Famotidine 20 mg 10/16/20 10:00 10/17/20 11:45 Famotidine 20 Mg/2 Ml Inj IV 20 mg DAILY MINH Administration Heparin Sodium (Porcine) 5,000 unit 10/14/20 06:00 10/16/20 22:01 Heparin 5,000 Unit/1 Ml Vial SUB-Q 5,000 unit Q8HR MINH Administration Sodium Chloride 100 mls @ 999 mls/hr 10/14/20 00:31 Nacl 0.9% IV PHANI PRN Hypotension Ceftriaxone Sodium 2 gm in 100 mls @ 200 mls/hr 10/14/20 01:00 10/16/20 09:58 Rocephin/Ns 2 Gm/100 Ml IV 10/19/20 10:29 200 mls/hr Q24HR MINH Administration Protocol Sodium Bicarbonate 150 meq/ 1,150 mls @ 150 mls/hr 10/14/20 12:00 Dextrose IV DIRECT MINH Magnesium Chloride 64 mg 10/17/20 11:00 10/17/20 11:46 Magnesium Chloride Er 64 Mg Tab PO 64 mg QDAY MINH Administration Ondansetron HCl 4 mg 10/14/20 00:31 10/16/20 22:11 Ondansetron 4 Mg/2 Ml Inj IV 4 mg Q8H PRN Administration Nausea And Vomiting Oxycodone/Acetaminophen 1 tab 10/16/20 16:00 10/17/20 11:45 Oxycodone /Acetaminophen 5-325mg Tab PO 1 tab Q6H PRN Administration Pain, Moderate (4-6) Potassium Phos/Sodium Phos 1 each 10/17/20 14:00 Phos-Nak Powder Packet PO 10/19/20 06:01 Q8HR MINH Sodium Chloride 10 ml 10/14/20 10:00 10/17/20 11:45 Sodium Chloride 0.9% 10 Ml Flush Syringe IV 10 ml BID MINH Administration Sodium Chloride 10 ml 10/14/20 00:31 Sodium Chloride 0.9% 10 Ml Flush Syringe IV PRN PRN LINE FLUSH
--- NOTE | 2020-10-17 13:22 | Event Note ---
Date: 10/17/20 Attempted to evaluate the patient today. Sister was in her room. She says the patient went down for dialysis. Will reassess tomorrow.
[2020-10-17] MEDS: cefTRIAXone/NS 2 GM/100 ML 2 GM/100 ML BAG IV SCH (16:57)
[2020-10-17] MEDS: PHOS-NAK POWDER PACKET PO SCH ×2 (16:58→22:07)
[2020-10-17] MEDS: ONDANSETRON 4 MG/2 ML INJ IV PRN (16:58)
--- NOTE | 2020-10-17 18:51 | Electrocardiograph Report ---
[facility] Test Date: 2020-10-13 Test Time: 21:48:53 Pat Name: JEREMIE HODGES Department: Room: A465 Gender: F Campaign Associate: : 1995 Requested By: BALBINA SEE Order Number: [id number] Reading MD: Wisam Abreu Measurements Intervals [place] Rate: 136 P: OR: QRS: 76 QRSD: 84 T: -16 QT: 294 QTc: 443 Interpretive Statements SINUS TACHYCARDIA No previous ECG available for comparison Electronically Signed On 10-17-2020 18:51:12 EDT by Wisam Abreu
[2020-10-18] MEDS: oxyCODONE /ACETAMINOPHEN 5-325MG TAB PO PRN ×3 (01:10→22:32)
[2020-10-18] MEDS: HEPARIN 5,000 UNIT/1 ML VIAL SUB-Q SCH ×3 (05:19→22:33)
[2020-10-18] MEDS: PHOS-NAK POWDER PACKET PO SCH ×3 (05:31→22:32)
[2020-10-18 08:43] LABS: Calcium 8.7 mg/dL (8.4-10.2)
[2020-10-18] MEDS: cefTRIAXone/NS 2 GM/100 ML 2 GM/100 ML BAG IV SCH (09:54)
[2020-10-18] MEDS: ONDANSETRON 4 MG/2 ML INJ IV PRN ×2 (09:55→22:32)
[2020-10-18] MEDS: MAGNESIUM CHLORIDE ER 64 MG TAB PO SCH (09:55)
--- NOTE | 2020-10-18 10:02 | Progress Note ---
Assessment and Plan Assessment and plan: This is a 25-year-old female with depression, PTSD, anxiety who is admitted for intentional ingestion of ethylene glycol Suicide attempt Patient denies any suicidal ideation at this time Behavioral health consulted Patient needs to be restarted on her depression/anxiety medications Recommends inpatient psychiatry, however patient does not desire to go to inpatient psychiatry. Ethylene Glycol Poisoning Ethylene glycol levels undetectable, results reviewed DC fomepizole 15 mg/kg every 12 hours Monitor ABG Acute Kidney Injury 2/2 Ethylene Glycol Poisoning Nephrology consulted Permacath placed, continue dialysis and observe patient's kidney function over the weekend Major depressive disorder Restart home medications per psychiatry Metabolic Acidosis d/t ethylene glycol Fluids with bicarb Leukocytosis. Downtrending Continue antibiotics Hyperkalemia Resolved Hypokalemia Potassium supplementation DVT CODE STATUS: Full Disposition: Continue to trend creatinine over the weekend. Case management working on making arrangements for outpatient dialysis if needed. History Interval history: 10/15/2020: Patient seen and examined, no overnight events, states that she feels as if she has generalized body pain. No fevers or chills. No nausea vomiting. 10/16/2020: Patient seen and examined, came back from dialysis, somewhat lethargic. No nausea or vomiting tolerating diet. 10/17/2020: Patient has some pain in her chest after permacath placed, controlled with Percocet. No nausea vomiting tolerating diet. 10/18/2020: Patient seen and examined this morning, has minimal nausea, pain controlled. Hospitalist Physical - Physical exam Narrative exam: General appearance: no acute distress, well-nourished EENT: PERRL, EOM intact, hearing intact, clear oral mucosa Neck: Present: supple, normal ROM Respiratory: bilateral CTA, negative: rales, rhonchi, wheezing Cardiovascular: Regular rate/rhythm, Normal S1 & S2. No gallop, rub, permacath in chest Extremities: no ischemia, No edema, normal temperature, normal color, Full ROM Abdominal: soft, no tenderness, non-distended, normal bowel sounds Integumentary: Present: clear, warm, dry no wounds, no erythema noted Psychiatric: appropriate mood/affect, intact judgment & insight Neurologic: CNII-XII intact, moves all extremities, no sensory or motor abnormalities - Constitutional Vitals: Temp Pulse Resp BP Pulse Ox 99.0 F 70 18 119/69 95 10/18/20 07:56 10/18/20 08:57 10/18/20 07:56 10/18/20 07:56 10/18/20 07:56 General appearance: Present: no acute distress, well-nourished Results - Labs CBC & Chem 7: 10/16/20 04:27 10/18/20 07:28 Labs: Laboratory Last Values WBC 11.3 K/mm3 (4.5-11.0) H 10/16/20 04:27 RBC 3.50 M/mm3 (3.65-5.03) L 10/16/20 04:27 Hgb 10.9 gm/dl (10.1-14.3) 10/16/20 04:27 Hct 31.5 % (30.3-42.9) 10/16/20 04:27 MCV 90 fl (79-97) 10/16/20 04:27 MCH 31 pg (28-32) 10/16/20 04:27 MCHC 35 % (30-34) H 10/16/20 04:27 RDW 13.3 % (13.2-15.2) 10/16/20 04:27 Plt Count 223 K/mm3 (140-440) 10/16/20 04:27 Lymph % (Auto) 15.0 % (13.4-35.0) 10/15/20 04:24 Talbot % (Auto) 7.9 % (0.0-7.3) H 10/15/20 04:24 Eos % (Auto) 0.1 % (0.0-4.3) 10/15/20 04:24 Baso % (Auto) 0.4 % (0.0-1.8) 10/15/20 04:24 Lymph # (Auto) 2.4 K/mm3 (1.2-5.4) 10/15/20 04:24 Talbot # (Auto) 1.3 K/mm3 (0.0-0.8) H 10/15/20 04:24 Eos # (Auto) 0.0 K/mm3 (0.0-0.4) 10/15/20 04:24 Baso # (Auto) 0.1 K/mm3 (0.0-0.1) 10/15/20 04:24 Add Manual Diff Complete 10/13/20 21:40 Total Counted 100 10/13/20 21:40 Seg Neutrophils % 76.6 % (40.0-70.0) H 10/15/20 04:24 Seg Neuts % (Manual) 68.0 % (40.0-70.0) 10/13/20 21:40 Lymphocytes % (Manual) 23.0 % (13.4-35.0) 10/13/20 21:40 Monocytes % (Manual) 9.0 % (0.0-7.3) H 10/13/20 21:40 Nucleated RBC % Not Reportable 10/13/20 21:40 Seg Neutrophils # 12.3 K/mm3 (1.8-7.7) H 10/15/20 04:24 Seg Neutrophils # Man 15.0 K/mm3 (1.8-7.7) H 10/13/20 21:40 Band Neutrophils # 0.0 K/mm3 10/13/20 21:40 Lymphocytes # (Manual) 5.1 K/mm3 (1.2-5.4) 10/13/20 21:40 Abs React Lymphs (Man) 0.0 K/mm3 10/13/20 21:40 Monocytes # (Manual) 2.0 K/mm3 (0.0-0.8) H 10/13/20 21:40 Eosinophils # (Manual) 0.0 K/mm3 (0.0-0.4) 10/13/20 21:40 Basophils # (Manual) 0.0 K/mm3 (0.0-0.1) 10/13/20 21:40 Metamyelocytes # 0.0 K/mm3 10/13/20 21:40 Myelocytes # 0.0 K/mm3 10/13/20 21:40 Promyelocytes # 0.0 K/mm3 10/13/20 21:40 Blast Cells # 0.0 K/mm3 10/13/20 21:40 WBC Morphology Not Reportable 10/13/20 21:40 Hypersegmented Neuts Not Reportable 10/13/20 21:40 Hyposegmented Neuts Not Reportable 10/13/20 21:40 Hypogranular Neuts Not Reportable 10/13/20 21:40 Smudge Cells Not Reportable 10/13/20 21:40 Toxic Granulation Not Reportable 10/13/20 21:40 Toxic Vacuolation Not Reportable 10/13/20 21:40 Dohle Bodies Not Reportable 10/13/20 21:40 Pelger-Huet Anomaly Not Reportable 10/13/20 21:40 Benjy Rods Not Reportable 10/13/20 21:40 Platelet Estimate Not Reportable 10/13/20 21:40 Clumped Platelets Not Reportable 10/13/20 21:40 Plt Clumps, EDTA Not Reportable 10/13/20 21:40 Large Platelets Not Reportable 10/13/20 21:40 Giant Platelets Not Reportable 10/13/20 21:40 Platelet Satelliting Not Reportable 10/13/20 21:40 Plt Morphology Comment Not Reportable 10/13/20 21:40 RBC Morphology Normal 10/13/20 21:40 Dimorphic RBCs Not Reportable 10/13/20 21:40 Polychromasia Not Reportable 10/13/20 21:40 Hypochromasia Not Reportable 10/13/20 21:40 Poikilocytosis Not Reportable 10/13/20 21:40 Anisocytosis Not Reportable 10/13/20 21:40 Microcytosis Not Reportable 10/13/20 21:40 Macrocytosis Not Reportable 10/13/20 21:40 Spherocytes Not Reportable 10/13/20 21:40 Pappenheimer Bodies Not Reportable 10/13/20 21:40 Sickle Cells Not Reportable 10/13/20 21:40 Target Cells Not Reportable 10/13/20 21:40 Tear Drop Cells Not Reportable 10/13/20 21:40 Ovalocytes Not Reportable 10/13/20 21:40 Helmet Cells Not Reportable 10/13/20 21:40 [place] Level Bodies Not Reportable 10/13/20 21:40 [place] Rings Not Reportable 10/13/20 21:40 Raissa Cells Not Reportable 10/13/20 21:40 Bite Cells Not Reportable 10/13/20 21:40 Crenated Cell Not Reportable 10/13/20 21:40 Elliptocytes Not Reportable 10/13/20 21:40 Acanthocytes (Spur) Not Reportable 10/13/20 21:40 Rouleaux Not Reportable 10/13/20 21:40 Hemoglobin C Crystals Not Reportable 10/13/20 21:40 Schistocytes Not Reportable 10/13/20 21:40 Malaria parasites Not Reportable 10/13/20 21:40 Koffi Bodies Not Reportable 10/13/20 21:40 Hem Pathologist Commnt No 10/13/20 21:40 ABG pH 7.096 pH Units (7.350-7.450) L* 10/14/20 01:30 POC ABG pCO2 10.5 mmHg (32.0-48.0) L 10/13/20 22:07 ABG pCO2 8.1 mm Hg 10/14/20 01:30 POC ABG pO2 131.9 mmHg (83-108) H 10/13/20 22:07 ABG pO2 125.0 mm Hg (80.0-90.0) H 10/14/20 01:30 POC ABG HCO3 2.4 10/13/20 22:07 ABG HCO3 2.4 mmol/L (20.0-26.0) L 10/14/20 01:30 ABG O2 Saturation 97.8 % (95.0-99.0) 10/14/20 01:30 ABG O2 Content 21.6 (0.0-44) 10/14/20 01:30 POC ABG Base Excess -27.2 10/13/20 22:07 ABG Base Excess -24.6 mmol/L (-2.0-3.0) L 10/14/20 01:30 ABG Hemoglobin 15.9 gm/dl (12.0-16.0) 10/14/20 01:30 ABG Oxyhemoglobin 97.5 (94-98) 10/13/20 22:07 ABG Carboxyhemoglobin 1.0 % (0.0-5.0) 10/14/20 01:30 ABG Methemoglobin 0.6 % (0.0-1.5) 10/14/20 01:30 ABG Sodium 142.3 mmol/L (136.0-145.0) 10/13/20 22:07 ABG Potassium 5.4 mmol/L (3.40-4.50) H 10/13/20 22:07 ABG Chloride 114.0 mmol/L (98-107) H 10/13/20 22:07 ABG Glucose 97 mg/dL (65-95) H 10/13/20 22:07 VBG pH 7.281 (7.320-7.420) L 10/14/20 Unknown Oxyhemoglobin 96.3 % (95.0-99.0) 10/14/20 01:30 Carboxyhemoglobin 0.4 (0.5-1.5) L 10/13/20 22:07 FiO2 21 % 10/14/20 01:30 FiO2 % 21.0 10/13/20 22:07 Sodium 137 mmol/L (137-145) 10/18/20 07:28 Potassium 4.0 mmol/L (3.6-5.0) D 10/18/20 07:28 Chloride 97.4 mmol/L (98-107) L 10/18/20 07:28 Carbon Dioxide 27 mmol/L (22-30) 10/18/20 07:28 Anion Gap 17 mmol/L 10/18/20 07:28 BUN 7 mg/dL (7-17) 10/18/20 07:28 Creatinine 3.4 mg/dL (0.6-1.2) H 10/18/20 07:28 Estimated GFR 16 ml/min 10/18/20 07:28 BUN/Creatinine Ratio 2 % 10/18/20 07:28 Glucose 70 mg/dL (65-100) 10/18/20 07:28 Osmolality 320 Mosm/kg 10/13/20 21:46 Calcium 8.7 mg/dL (8.4-10.2) 10/18/20 07:28 Phosphorus 2.30 mg/dL (2.5-4.5) L 10/17/20 05:07 Magnesium 1.50 mg/dL (1.7-2.3) L 10/18/20 07:28 Total Bilirubin 0.50 mg/dL (0.1-1.2) 10/15/20 04:24 AST 23 units/L (5-40) 10/15/20 04:24 ALT 7 units/L (7-56) 10/15/20 04:24 Alkaline Phosphatase 57 units/L (35-129) 10/15/20 04:24 Total Protein 5.3 g/dL (6.3-8.2) L 10/15/20 04:24 Albumin 3.3 g/dL (3.9-5) L 10/15/20 04:24 Albumin/Globulin Ratio 1.7 % 10/15/20 04:24 HCG, Qual Negative (Negative) 10/13/20 21:40 Arterial Blood Glucose 97 mg/dL (65-95) H 10/13/20 22:07 Arterial Blood Ionized Calcium 5.3 mg/dL (4.6-5.3) 10/13/20 22:07 Urine Color Yellow (Yellow) 10/13/20 Unknown Urine Turbidity Slightly-cloudy (Clear) 10/13/20 Unknown Urine pH 5.0 (5.0-7.0) 10/13/20 Unknown Ur Specific [place] 1.010 (1.003-1.030) 10/13/20 Unknown Urine Protein 100 mg/dl mg/dL (Negative) 10/13/20 Unknown Urine Glucose (UA) Neg mg/dL (Negative) 10/13/20 Unknown Urine Ketones Neg mg/dL (Negative) 10/13/20 Unknown Urine Blood Lg (Negative) 10/13/20 Unknown Urine Nitrite Neg (Negative) 10/13/20 Unknown Urine Bilirubin Neg (Negative) 10/13/20 Unknown Urine Urobilinogen < 2.0 mg/dL (<2.0) 10/13/20 Unknown Ur Leukocyte Esterase Sm (Negative) 10/13/20 Unknown Urine WBC (Auto) 5.0 /HPF (0.0-6.0) 10/13/20 Unknown Urine RBC (Auto) > 182.0 /HPF (0.0-6.0) 10/13/20 Unknown U Epithel Cells (Auto) 5.0 /HPF (0-13.0) 10/13/20 Unknown Urine Bacteria (Auto) 2+ /HPF (Negative) 10/13/20 Unknown Calcium Oxalate Crystal Few 10/13/20 Unknown Uric Acid Crystals 1+ 10/13/20 Unknown Urine Mucus Few /HPF 10/13/20 Unknown Urine Yeast (Budding) Few /HPF 10/13/20 Unknown Salicylates < 0.3 mg/dL (2.8-20.0) L 10/13/20 21:40 Urine Opiates Screen Presumptive negative 10/13/20 Unknown Urine Methadone Screen Presumptive negative 10/13/20 Unknown Acetaminophen 5.0 ug/mL (10.0-30.0) L 10/13/20 21:40 Ur Barbiturates Screen Presumptive negative 10/13/20 Unknown Ur Phencyclidine Scrn Presumptive negative 10/13/20 Unknown Ur Amphetamines Screen Presumptive negative 10/13/20 Unknown U Benzodiazepines Scrn Presumptive negative 10/13/20 Unknown Urine Cocaine Screen Presumptive negative 10/13/20 Unknown U Marijuana (THC) Screen Presumptive negative 10/13/20 Unknown Drugs of Abuse Note Disclamer 10/13/20 Unknown Ethylene Glycol See scanned result 10/17/20 05:07 Plasma/Serum Alcohol < 0.01 % (0-0.07) 10/13/20 21:40 Coronavirus (PCR) Negative (Negative) 10/14/20 Unknown Hepatitis A IgM Ab Non-reactive (NonReactive) 10/14/20 05:12 Hep Bs Antigen Non-reactive (Negative) 10/14/20 05:12 Hep B Core IgM Ab Non-reactive (NonReactive) 10/14/20 05:12 Hepatitis C Antibody Non-reactive (NonReactive) 10/14/20 05:12 Gomez/IV: Voiding Method Toilet Active Medications - Current Medications Current Medications: Generic Name Dose Route Start Last Admin Trade Name Freq PRN Reason Stop Dose Admin Acetaminophen 650 mg 10/14/20 00:31 Acetaminophen 325 Mg Tab PO Q4H PRN Pain MILD(1-3)/Fever >100.5/TAYLOR Famotidine 20 mg 10/16/20 10:00 10/17/20 11:45 Famotidine 20 Mg/2 Ml Inj IV 20 mg DAILY MINH Administration Heparin Sodium (Porcine) 5,000 unit 10/14/20 06:00 10/18/20 05:19 Heparin 5,000 Unit/1 Ml Vial SUB-Q 5,000 unit Q8HR MINH Administration Sodium Chloride 100 mls @ 999 mls/hr 10/14/20 00:31 Nacl 0.9% IV PHANI PRN Hypotension Ceftriaxone Sodium 2 gm in 100 mls @ 200 mls/hr 10/14/20 01:00 10/18/20 09:54 Rocephin/Ns 2 Gm/100 Ml IV 10/19/20 10:29 200 mls/hr Q24HR MINH Administration Protocol Sodium Bicarbonate 150 meq/ 1,150 mls @ 150 mls/hr 10/14/20 12:00 Dextrose IV DIRECT MINH Magnesium Chloride 64 mg 10/17/20 11:00 10/18/20 09:55 Magnesium Chloride Er 64 Mg Tab PO 64 mg QDAY MINH Administration Ondansetron HCl 4 mg 10/14/20 00:31 10/18/20 09:55 Ondansetron 4 Mg/2 Ml Inj IV 4 mg Q8H PRN Administration Nausea And Vomiting Oxycodone/Acetaminophen 1 tab 10/16/20 16:00 10/18/20 09:55 Oxycodone /Acetaminophen 5-325mg Tab PO 1 tab Q6H PRN Administration Pain, Moderate (4-6) Potassium Phos/Sodium Phos 1 each 10/17/20 14:00 10/18/20 05:31 Phos-Nak Powder Packet PO 10/19/20 06:01 1 each Q8HR MINH Administration Sodium Chloride 10 ml 10/14/20 10:00 10/18/20 09:55 Sodium Chloride 0.9% 10 Ml Flush Syringe IV 10 ml BID MINH Administration Sodium Chloride 10 ml 10/14/20 00:31 Sodium Chloride 0.9% 10 Ml Flush Syringe IV PRN PRN LINE FLUSH
[2020-10-18] MEDS: FAMOTIDINE 20 MG/2 ML INJ IV SCH (10:04)
--- NOTE | 2020-10-18 10:43 | Progress Note ---
Assessment and Plan - Patient Problems (1) Acute kidney failure Current Visit: Yes Status: Acute Plan to address problem: In the setting of ethylene glycol toxicity/poisoning. Has received daily HD, and her overall mentation and respiratory status has improved, and she is now out of the ICU on telemetry. Her mentation is back to her baseline, and she is on room air without any issues. Labs reviewed without any acute indications for renal replacement therapy today. Will hold off on HD today, and monitor closely over the weekend for signs of renal recovery. (2) Ethylene glycol poisoning Current Visit: Yes Status: Acute Qualifiers: Encounter type: initial encounter Injury intent: intentional self-harm Qu alified Code(s): T52.8X2A - Toxic effect of other organic solvents, intentional self-harm, initial encounter Plan to address problem: S/P daily dialysis along with fomepizole and sodium bicarbonate infusion. Mentation has improved along with undetected ethylene glycol levels. Will monitor closely. (3) Hyperkalemia Current Visit: Yes Status: Acute Plan to address problem: Stable at this time. (4) Metabolic acidosis due to ethylene glycol Current Visit: Yes Status: Acute Plan to address problem: Improved with treatment/dialysis (5) Metabolic encephalopathy Current Visit: Yes Status: Acute Plan to address problem: Her overall mentation has improved at this time. Subjective Date of service: 10/18/20 Principal diagnosis: Ethylene glycol poisoning, metabolic acidosis, hyperkalemia, acute kidney Interval history: No acute issues, tolerated HD. No complaints this am, and labs reviewed. Objective - Vital Signs Vital signs: Vital Signs - 12hr 10/18/20 10/18/20 10/18/20 01:02 07:56 08:57 Temperature 98.4 F 99.0 F Pulse Rate 76 70 70 Respiratory 20 18 Rate Blood Pressure 119/73 119/69 O2 Sat by Pulse 98 95 Oximetry - General Appearance General appearance: well-developed, well-nourished, appears stated age EENT: ATNC, PERRL Neck: no JVD, no thyromegaly Respiratory: Present: Clear to Ascultation, Decreased Breath Sounds Cardiology: regular Gastrointestinal: normal, normoactive bowel sounds Integumentary: no rash, warm and dry Neurologic: no focal deficit, no asterixis Musculoskeletal: deferred Psychiatric: mood/affect appropriate, cooperative - Lab 10/16/20 04:27 10/18/20 07:28 Most recent lab results ABG pH 7.096 pH Units (7.350-7.450) L* 10/14/20 01:30 ABG pCO2 8.1 mm Hg 10/14/20 01:30 ABG pO2 125.0 mm Hg (80.0-90.0) H 10/14/20 01:30 ABG HCO3 2.4 mmol/L (20.0-26.0) L 10/14/20 01:30 ABG O2 Saturation 97.8 % (95.0-99.0) 10/14/20 01:30 Calcium 8.7 mg/dL (8.4-10.2) 10/18/20 07:28 Phosphorus 2.30 mg/dL (2.5-4.5) L 10/17/20 05:07 Magnesium 1.50 mg/dL (1.7-2.3) L 10/18/20 07:28 - Allied health notes Allied health notes reviewed: nursing Medications & Allergies - Medications Allergies/Adverse Reactions: Allergies No Known Allergies Allergy (Unverified 06/29/13 00:00) Home Medications: Home Medications Medication Instructions Recorded Confirmed Last Taken Type Eszopiclone [Lunesta] 2 mg PO DAILY 10/14/20 10/14/20 2 Weeks Ago History ~09/30/20 Lexapro 7.5 mg PO DAILY 10/14/20 10/14/20 2 Weeks Ago History ~09/30/20 Remeron 10 mg PO DAILY 10/14/20 10/14/20 2 Weeks Ago History ~09/30/20 Active Medications: Generic Name Dose Route Start Last Admin Trade Name Freq PRN Reason Stop Dose Admin Acetaminophen 650 mg 10/14/20 00:31 Acetaminophen 325 Mg Tab PO Q4H PRN Pain MILD(1-3)/Fever >100.5/TAYLOR Famotidine 20 mg 10/16/20 10:00 10/17/20 11:45 Famotidine 20 Mg/2 Ml Inj IV 20 mg DAILY MINH Administration Heparin Sodium (Porcine) 5,000 unit 10/14/20 06:00 10/18/20 05:19 Heparin 5,000 Unit/1 Ml Vial SUB-Q 5,000 unit Q8HR MINH Administration Sodium Chloride 100 mls @ 999 mls/hr 10/14/20 00:31 Nacl 0.9% IV PHANI PRN Hypotension Ceftriaxone Sodium 2 gm in 100 mls @ 200 mls/hr 10/14/20 01:00 10/18/20 09:54 Rocephin/Ns 2 Gm/100 Ml IV 10/19/20 10:29 200 mls/hr Q24HR MINH Administration Protocol Sodium Bicarbonate 150 meq/ 1,150 mls @ 150 mls/hr 10/14/20 12:00 Dextrose IV DIRECT MINH Magnesium Chloride 64 mg 10/17/20 11:00 10/18/20 09:55 Magnesium Chloride Er 64 Mg Tab PO 64 mg QDAY MINH Administration Ondansetron HCl 4 mg 10/14/20 00:31 10/18/20 09:55 Ondansetron 4 Mg/2 Ml Inj IV 4 mg Q8H PRN Administration Nausea And Vomiting Oxycodone/Acetaminophen 1 tab 10/16/20 16:00 10/18/20 09:55 Oxycodone /Acetaminophen 5-325mg Tab PO 1 tab Q6H PRN Administration Pain, Moderate (4-6) Potassium Phos/Sodium Phos 1 each 10/17/20 14:00 10/18/20 05:31 Phos-Nak Powder Packet PO 10/19/20 06:01 1 each Q8HR MINH Administration Sodium Chloride 10 ml 10/14/20 10:00 10/18/20 09:55 Sodium Chloride 0.9% 10 Ml Flush Syringe IV 10 ml BID MINH Administration Sodium Chloride 10 ml 10/14/20 00:31 Sodium Chloride 0.9% 10 Ml Flush Syringe IV PRN PRN LINE FLUSH
--- NOTE | 2020-10-18 12:16 | Progress Note ---
Subjective - Reason for Consult Consult date: 10/18/20 Reason for consult: OD - Chief Complaint Chief complaint: The patient was seen today, she is calm, and cooperative. She is pleasant and upbeat. She says she has a history of depression and anxiety and took medications because she felt overwhelmed with everything. The patient says she was feeling suicidal at the time. She says "I had been off my antidepressant for about two weeks." She says "I get like that when I stop taking them." The patient also states getting away from her present environment for a few days has helped her and allowed her to think about her actions. She states "actually, I f eel pretty good." The patient states "I'm not suicidal at all and not even thinking about it." She says "work and home life are stressful sometimes, so I know now I need to stay on my med." The patient says she takes mirtazepine, lexapro and lunesta. She denies hallucinations of any kind. REVIEW OF SYSTEMS Constitutional: Negative for weight loss ENT: Negative for stridor Respiratory: Negative for cough or hemoptysis All other systems reviewed and are negative MENTAL STATUS EXAMINATION General Appearance and Behavior: Age appropriate, good hygiene, wearing appropriate clothes,, good eye contact Cooperation: Participating/engaged, but Guarded Psychomotor Behavior: Psychomotor normal Mood: depressed Affect and affective range: irritable, labile Thought Process: illogical Thought Content: hopelessness, helplessness Speech: Normal rate, volume and rythm Intellectual Functioning: Average Suicidal Ideation: SI Homicidal Ideation: Denies HI Impulse Control: Impaired Insight and Judgment: Limited insight and judgment Memory: Normal Attention: Normal Orientation: Alert, oriented Assessment and Plan (1) MDD (major depressive disorder) Current Visit: Yes Status: Acute Treatment Plan d/c 1013 Restart home Lexapro 10mg po daily Restart home Mirtazepine 7.5mg po qhs Restart Lunesta 2mg po qhs Risks, benefits and alternatives of medications discussed with the patient, questions answered and consent obtained from patient. PSYCHOTHERAPY: Supportive psychotherapy provided MEDICAL: Per primary team DELIRIUM PRECAUTIONS: Please re-orient patient frequently, keep lights on during the day, and minimize benzodiazepines and opiates as these medications could worsen patient's confusion. BALANCE BRIDGE ASSEMBLER: Defer to primary DISPOSITION: Do not recommend acute inpatient psychiatric hospitalization at this time. Case discussed with Dr. Kim who agrees with current disposition FOLLOW-UP: Will follow Thank you for the consult. Please contact with any questions and/or concerns. Mental Status Exam - Vital signs Last Vital Signs Temp 98.6 F 10/18/20 11:38 Pulse 67 10/18/20 11:38 Resp 18 10/18/20 11:38 BP 114/76 10/18/20 11:38 Pulse Ox 96 10/18/20 11:38
[2020-10-18] MEDS ORDERED: ZOLPIDEM 5 MG TAB PO PRN (12:53)
[2020-10-18] MEDS: FAMOTIDINE 20 MG TAB PO SCH (17:05)
[2020-10-18] MEDS: ESCITALOPRAM 10 MG TAB PO SCH (17:06)
[2020-10-18] MEDS: MIRTAZAPINE 15 MG TAB PO SCH (22:32)
[2020-10-19] MEDS: HEPARIN 5,000 UNIT/1 ML VIAL SUB-Q SCH ×3 (05:05→21:40)
[2020-10-19] MEDS: PHOS-NAK POWDER PACKET PO SCH (05:05)
[2020-10-19 06:03] LABS: Calcium 9.1 mg/dL (8.4-10.2)
--- NOTE | 2020-10-19 07:22 | Progress Note ---
Assessment and Plan - Patient Problems (1) Acute kidney failure Current Visit: Yes Status: Acute Plan to address problem: In the setting of ethylene glycol toxicity/poisoning. Has received daily HD, and her overall mentation and respiratory status has improved, and she is now out of the ICU on telemetry. Her mentation is back to her baseline, and she is on room air without any issues. Labs reviewed without any acute indications for renal replacement therapy today. Will hold off on HD today, and monitor closely over the weekend for signs of renal recovery. Her latest labs this morning did show a worsening in her renal parameters which we will have to monitor. If renal function continues to show worsening,then we will plan to restart HD tomorrow. Discussed with patient at length. (2) Ethylene glycol poisoning Current Visit: Yes Status: Acute Qualifiers: Encounter type: initial encounter Injury intent: intentional self-harm Qualified Code(s): T52.8X2A - Toxic effect of other organic solvents, intentional self-harm, initial encounter Plan to address problem: S/P daily dialysis along with fomepizole and sodium bicarbonate infusion. Mentation has improved along with undetected ethylene glycol levels. Will monitor closely. (3) Hyperkalemia Current Visit: Yes Status: Acute Plan to address problem: Stable at this time. (4) Metabolic acidosis due to ethylene glycol Current Visit: Yes Status: Acute Plan to address problem: Improved with treatment/dialysis (5) Metabolic encephalopathy Current Visit: Yes Status: Acute Plan to address problem: Her overall mentation has improved at this time. Subjective Date of service: 10/19/20 Principal diagnosis: Ethylene glycol poisoning, metabolic acidosis, hyperkalemia, acute kidney Interval history: No acute complaints this am, labs noted with worsening in renal parameters. Will need to monitor closely over the next 24 hours, but if trend continues, may have to restart HD tomorrow. Objective - Vital Signs Vital signs: Vital Signs - 12hr 10/18/20 10/18/20 10/18/20 20:02 20:29 23:06 Temperature 99.6 F 97.4 F L Pulse Rate 70 71 67 Respiratory 18 17 Rate Blood Pressure 131/51 124/76 O2 Sat by Pulse 98 97 Oximetry 10/19/20 03:51 Temperature 98.3 F Pulse Rate 71 Respiratory 18 Rate Blood Pressure 115/70 O2 Sat by Pulse 96 Oximetry - General Appearance General appearance: well-developed, appears stated age EENT: ATNC Neck: no JVD Respiratory: Present: Clear to Ascultation, Normal Exam Cardiology: regular Gastrointestinal: normal Integumentary: no rash, warm and dry Neurologic: no focal deficit, alert and oriented x3 Musculoskeletal: deferred Psychiatric: mood/affect appropriate - Lab 10/16/20 04:27 10/19/20 05:11 Most recent lab results ABG pH 7.096 pH Units (7.350-7.450) L* 10/14/20 01:30 ABG pCO2 8.1 mm Hg 10/14/20 01:30 ABG pO2 125.0 mm Hg (80.0-90.0) H 10/14/20 01:30 ABG HCO3 2.4 mmol/L (20.0-26.0) L 10/14/20 01:30 ABG O2 Saturation 97.8 % (95.0-99.0) 10/14/20 01:30 Calcium 9.1 mg/dL (8.4-10.2) 10/19/20 05:11 Phosphorus 2.30 mg/dL (2.5-4.5) L 10/17/20 05:07 Magnesium 1.50 mg/dL (1.7-2.3) L 10/18/20 07:28 - Allied health notes Allied health notes reviewed: nursing Medications & Allergies - Medications Allergies/Adverse Reactions: Allergies No Known Allergies Allergy (Unverified 06/29/13 00:00) Home Medications: Home Medications Medication Instructions Recorded Confirmed Last Taken Type Eszopiclone [Lunesta] 2 mg PO DAILY 10/14/20 10/14/20 2 Weeks Ago History ~09/30/20 Lexapro 7.5 mg PO DAILY 10/14/20 10/14/20 2 Weeks Ago History ~09/30/20 Remeron 10 mg PO DAILY 10/14/20 10/14/20 2 Weeks Ago History ~09/30/20 Active Medications: Generic Name Dose Route Start Last Admin Trade Name Freq PRN Reason Stop Dose Admin Acetaminophen 650 mg 10/14/20 00:31 Acetaminophen 325 Mg Tab PO Q4H PRN Pain MILD(1-3)/Fever >100.5/TAYLOR Escitalopram Oxalate 10 mg 10/18/20 13:00 10/18/20 17:06 Escitalopram 10 Mg Tab PO Not Given QDAY MINH Famotidine 20 mg 10/18/20 11:00 10/18/20 17:05 Famotidine 20 Mg Tab PO Not Given DAILY MINH Heparin Sodium (Porcine) 5,000 unit 10/14/20 06:00 10/19/20 05:05 Heparin 5,000 Unit/1 Ml Vial SUB-Q 5,000 unit Q8HR MINH Administration Sodium Chloride 100 mls @ 999 mls/hr 10/14/20 00:31 Nacl 0.9% IV PHANI PRN Hypotension Ceftriaxone Sodium 2 gm in 100 mls @ 200 mls/hr 10/14/20 01:00 10/18/20 09:54 Rocephin/Ns 2 Gm/100 Ml IV 10/19/20 10:29 200 mls/hr Q24HR MINH Administration Protocol Magnesium Chloride 64 mg 10/17/20 11:00 10/18/20 09:55 Magnesium Chloride Er 64 Mg Tab PO 64 mg QDAY MINH Administration Mirtazapine 7.5 mg 10/18/20 22:00 10/18/20 22:32 Mirtazapine 15 Mg Tab PO 7.5 mg QHS MINH Administration Ondansetron HCl 4 mg 10/14/20 00:31 10/18/20 22:32 Ondansetron 4 Mg/2 Ml Inj IV 4 mg Q8H PRN Administration Nausea And Vomiting Oxycodone/Acetaminophen 1 tab 10/16/20 16:00 10/18/20 22:32 Oxycodone /Acetaminophen 5-325mg Tab PO 1 tab Q6H PRN Administration Pain, Moderate (4-6) Sodium Chloride 10 ml 10/14/20 10:00 10/18/20 22:33 Sodium Chloride 0.9% 10 Ml Flush Syringe IV 10 ml BID MINH Administration Sodium Chloride 10 ml 10/14/20 00:31 Sodium Chloride 0.9% 10 Ml Flush Syringe IV PRN PRN LINE FLUSH Zolpidem Tartrate 5 mg 10/18/20 12:53 Zolpidem 5 Mg Tab PO QHS PRN Insomnia
--- NOTE | 2020-10-19 08:25 | Progress Note ---
Assessment and Plan Assessment and plan: This is a 25-year-old female with depression, PTSD, anxiety who is admitted for intentional ingestion of ethylene glycol Suicide attempt Patient denies any suicidal ideation at this time Behavioral health consulted Patient started on Lunesta, Lexapro, mirtazapine. Please be aware that the patient stop taking these medications, specifically Lunesta and Lexapro because of cost. She is asking for a cheaper option. Ethylene Glycol Poisoning Ethylene glycol levels undetectable, results reviewed DC fomepizole 15 mg/kg every 12 hours Acute Kidney Injury 2/ Ethylene Glycol Poisoning Nephrology consulted Permacath placed Continue to monitor kidney function Major depressive disorder Restart home medications per psychiatry Metabolic Acidosis d/t ethylene glycol Fluids with bicarb Leukocytosis. Downtrending Continue antibiotics Hyperkalemia Resolved Hypokalemia Potassium supplementation DVT CODE STATUS: Full Disposition: Continue to trend creatinine over the weekend. Case management working on making arrangements for outpatient dialysis if needed. History Interval history: 10/15/2020: Patient seen and examined, no overnight events, states that she feels as if she has generalized body pain. No fevers or chills. No nausea vomiting. 10/16/2020: Patient seen and examined, came back from dialysis, somewhat lethargic. No nausea or vomiting tolerating diet. 10/17/2020: Patient has some pain in her chest after permacath placed, controlled with Percocet. No nausea vomiting tolerating diet. 10/18/2020: Patient seen and examined this morning, has minimal nausea, pain controlled. 10/19/2020: Patient seen and examined, pain controlled, finished breakfast. Spoke to the patient pertaining to worsening creatinine Hospitalist Physical - Physical exam Narrative exam: General appearance: no acute distress, well-nourished EENT: PERRL, EOM intact, hearing intact, clear oral mucosa Neck: Present: supple, normal ROM Respiratory: bilateral CTA, negative: rales, rhonchi, wheezing Cardiovascular: Regular rate/rhythm, Normal S1 & S2. No gallop, rub, permacath in chest Extremities: no ischemia, No edema, normal temperature, normal color, Full ROM Abdominal: soft, no tenderness, non-distended, normal bowel sounds Integumentary: Present: clear, warm, dry no wounds, no erythema noted Psychiatric: appropriate mood/affect, intact judgment & insight Neurologic: CNII-XII intact, moves all extremities, no sensory or motor abnormalities - Constitutional Vitals: Temp Pulse Resp BP Pulse Ox 98.3 F 71 18 115/70 96 10/19/20 03:51 10/19/20 03:51 10/19/20 03:51 10/19/20 03:51 10/19/20 03:51 General appearance: Present: no acute distress, well-nourished Results - Labs CBC & Chem 7: 10/16/20 04:27 10/19/20 05:11 Labs: Laboratory Last Values WBC 11.3 K/mm3 (4.5-11.0) H 10/16/20 04:27 RBC 3.50 M/mm3 (3.65-5.03) L 10/16/20 04:27 Hgb 10.9 gm/dl (10.1-14.3) 10/16/20 04:27 Hct 31.5 % (30.3-42.9) 10/16/20 04:27 MCV 90 fl (79-97) 10/16/20 04:27 MCH 31 pg (28-32) 10/16/20 04:27 MCHC 35 % (30-34) H 10/16/20 04:27 RDW 13.3 % (13.2-15.2) 10/16/20 04:27 Plt Count 223 K/mm3 (140-440) 10/16/20 04:27 Lymph % (Auto) 15.0 % (13.4-35.0) 10/15/20 04:24 Haakon % (Auto) 7.9 % (0.0-7.3) H 10/15/20 04:24 Eos % (Auto) 0.1 % (0.0-4.3) 10/15/20 04:24 Baso % (Auto) 0.4 % (0.0-1.8) 10/15/20 04:24 Lymph # (Auto) 2.4 K/mm3 (1.2-5.4) 10/15/20 04:24 Haakon # (Auto) 1.3 K/mm3 (0.0-0.8) H 10/15/20 04:24 Eos # (Auto) 0.0 K/mm3 (0.0-0.4) 10/15/20 04:24 Baso # (Auto) 0.1 K/mm3 (0.0-0.1) 10/15/20 04:24 Add Manual Diff Complete 10/13/20 21:40 Total Counted 100 10/13/20 21:40 Seg Neutrophils % 76.6 % (40.0-70.0) H 10/15/20 04:24 Seg Neuts % (Manual) 68.0 % (40.0-70.0) 10/13/20 21:40 Lymphocytes % (Manual) 23.0 % (13.4-35.0) 10/13/20 21:40 Monocytes % (Manual) 9.0 % (0.0-7.3) H 10/13/20 21:40 Nucleated RBC % Not Reportable 10/13/20 21:40 Seg Neutrophils # 12.3 K/mm3 (1.8-7.7) H 10/15/20 04:24 Seg Neutrophils # Man 15.0 K/mm3 (1.8-7.7) H 10/13/20 21:40 Band Neutrophils # 0.0 K/mm3 10/13/20 21:40 Lymphocytes # (Manual) 5.1 K/mm3 (1.2-5.4) 10/13/20 21:40 Abs React Lymphs (Man) 0.0 K/mm3 10/13/20 21:40 Monocytes # (Manual) 2.0 K/mm3 (0.0-0.8) H 10/13/20 21:40 Eosinophils # (Manual) 0.0 K/mm3 (0.0-0.4) 10/13/20 21:40 Basophils # (Manual) 0.0 K/mm3 (0.0-0.1) 10/13/20 21:40 Metamyelocytes # 0.0 K/mm3 10/13/20 21:40 Myelocytes # 0.0 K/mm3 10/13/20 21:40 Promyelocytes # 0.0 K/mm3 10/13/20 21:40 Blast Cells # 0.0 K/mm3 10/13/20 21:40 WBC Morphology Not Reportable 10/13/20 21:40 Hypersegmented Neuts Not Reportable 10/13/20 21:40 Hyposegmented Neuts Not Reportable 10/13/20 21:40 Hypogranular Neuts Not Reportable 10/13/20 21:40 Smudge Cells Not Reportable 10/13/20 21:40 Toxic Granulation Not Reportable 10/13/20 21:40 Toxic Vacuolation Not Reportable 10/13/20 21:40 Dohle Bodies Not Reportable 10/13/20 21:40 Pelger-Huet Anomaly Not Reportable 10/13/20 21:40 Benjy Rods Not Reportable 10/13/20 21:40 Platelet Estimate Not Reportable 10/13/20 21:40 Clumped Platelets Not Reportable 10/13/20 21:40 Plt Clumps, EDTA Not Reportable 10/13/20 21:40 Large Platelets Not Reportable 10/13/20 21:40 Giant Platelets Not Reportable 10/13/20 21:40 Platelet Satelliting Not Reportable 10/13/20 21:40 Plt Morphology Comment Not Reportable 10/13/20 21:40 RBC Morphology Normal 10/13/20 21:40 Dimorphic RBCs Not Reportable 10/13/20 21:40 Polychromasia Not Reportable 10/13/20 21:40 Hypochromasia Not Reportable 10/13/20 21:40 Poikilocytosis Not Reportable 10/13/20 21:40 Anisocytosis Not Reportable 10/13/20 21:40 Microcytosis Not Reportable 10/13/20 21:40 Macrocytosis Not Reportable 10/13/20 21:40 Spherocytes Not Reportable 10/13/20 21:40 Pappenheimer Bodies Not Reportable 10/13/20 21:40 Sickle Cells Not Reportable 10/13/20 21:40 Target Cells Not Reportable 10/13/20 21:40 Tear Drop Cells Not Reportable 10/13/20 21:40 Ovalocytes Not Reportable 10/13/20 21:40 Helmet Cells Not Reportable 10/13/20 21:40 [place] Bodies Not Reportable 10/13/20 21:40 [place] Rings Not Reportable 10/13/20 21:40 [place] Cells Not Reportable 10/13/20 21:40 Bite Cells Not Reportable 10/13/20 21:40 Crenated Cell Not Reportable 10/13/20 21:40 Elliptocytes Not Reportable 10/13/20 21:40 Acanthocytes (Spur) Not Reportable 10/13/20 21:40 Rouleaux Not Reportable 10/13/20 21:40 Hemoglobin C Crystals Not Reportable 10/13/20 21:40 Schistocytes Not Reportable 10/13/20 21:40 Malaria parasites Not Reportable 10/13/20 21:40 Koffi Bodies Not Reportable 10/13/20 21:40 Hem Pathologist Commnt No 10/13/20 21:40 ABG pH 7.096 pH Units (7.350-7.450) L* 10/14/20 01:30 POC ABG pCO2 10.5 mmHg (32.0-48.0) L 10/13/20 22:07 ABG pCO2 8.1 mm Hg 10/14/20 01:30 POC ABG pO2 131.9 mmHg (83-108) H 10/13/20 22:07 ABG pO2 125.0 mm Hg (80.0-90.0) H 10/14/20 01:30 POC ABG HCO3 2.4 10/13/20 22:07 ABG HCO3 2.4 mmol/L (20.0-26.0) L 10/14/20 01:30 ABG O2 Saturation 97.8 % (95.0-99.0) 10/14/20 01:30 ABG O2 Content 21.6 (0.0-44) 10/14/20 01:30 POC ABG Base Excess -27.2 10/13/20 22:07 ABG Base Excess -24.6 mmol/L (-2.0-3.0) L 10/14/20 01:30 ABG Hemoglobin 15.9 gm/dl (12.0-16.0) 10/14/20 01:30 ABG Oxyhemoglobin 97.5 (94-98) 10/13/20 22:07 ABG Carboxyhemoglobin 1.0 % (0.0-5.0) 10/14/20 01:30 ABG Methemoglobin 0.6 % (0.0-1.5) 10/14/20 01:30 ABG Sodium 142.3 mmol/L (136.0-145.0) 10/13/20 22:07 ABG Potassium 5.4 mmol/L (3.40-4.50) H 10/13/20 22:07 ABG Chloride 114.0 mmol/L (98-107) H 10/13/20 22:07 ABG Glucose 97 mg/dL (65-95) H 10/13/20 22:07 VBG pH 7.281 (7.320-7.420) L 10/14/20 Unknown Oxyhemoglobin 96.3 % (95.0-99.0) 10/14/20 01:30 Carboxyhemoglobin 0.4 (0.5-1.5) L 10/13/20 22:07 FiO2 21 % 10/14/20 01:30 FiO2 % 21.0 10/13/20 22:07 Sodium 138 mmol/L (137-145) 10/19/20 05:11 Potassium 3.6 mmol/L (3.6-5.0) 10/19/20 05:11 Chloride 99.7 mmol/L (98-107) 10/19/20 05:11 Carbon Dioxide 27 mmol/L (22-30) 10/19/20 05:11 Anion Gap 15 mmol/L 10/19/20 05:11 BUN 14 mg/dL (7-17) 10/19/20 05:11 Creatinine 4.4 mg/dL (0.6-1.2) H 10/19/20 05:11 Estimated GFR 12 ml/min 10/19/20 05:11 BUN/Creatinine Ratio 3 % 10/19/20 05:11 Glucose 91 mg/dL (65-100) 10/19/20 05:11 Osmolality 320 Mosm/kg 10/13/20 21:46 Calcium 9.1 mg/dL (8.4-10.2) 10/19/20 05:11 Phosphorus 2.30 mg/dL (2.5-4.5) L 10/17/20 05:07 Magnesium 1.50 mg/dL (1.7-2.3) L 10/18/20 07:28 Total Bilirubin 0.50 mg/dL (0.1-1.2) 10/15/20 04:24 AST 23 units/L (5-40) 10/15/20 04:24 ALT 7 units/L (7-56) 10/15/20 04:24 Alkaline Phosphatase 57 units/L (35-129) 10/15/20 04:24 Total Protein 5.3 g/dL (6.3-8.2) L 10/15/20 04:24 Albumin 3.3 g/dL (3.9-5) L 10/15/20 04:24 Albumin/Globulin Ratio 1.7 % 10/15/20 04:24 HCG, Qual Negative (Negative) 10/13/20 21:40 Arterial Blood Glucose 97 mg/dL (65-95) H 10/13/20 22:07 Arterial Blood Ionized Calcium 5.3 mg/dL (4.6-5.3) 10/13/20 22:07 Urine Color Yellow (Yellow) 10/13/20 Unknown Urine Turbidity Slightly-cloudy (Clear) 10/13/20 Unknown Urine pH 5.0 (5.0-7.0) 10/13/20 Unknown Ur Specific [place] 1.010 (1.003-1.030) 10/13/20 Unknown Urine Protein 100 mg/dl mg/dL (Negative) 10/13/20 Unknown Urine Glucose (UA) Neg mg/dL (Negative) 10/13/20 Unknown Urine Ketones Neg mg/dL (Negative) 10/13/20 Unknown Urine Blood Lg (Negative) 10/13/20 Unknown Urine Nitrite Neg (Negative) 10/13/20 Unknown Urine Bilirubin Neg (Negative) 10/13/20 Unknown Urine Urobilinogen < 2.0 mg/dL (<2.0) 10/13/20 Unknown Ur Leukocyte Esterase Sm (Negative) 10/13/20 Unknown Urine WBC (Auto) 5.0 /HPF (0.0-6.0) 10/13/20 Unknown Urine RBC (Auto) > 182.0 /HPF (0.0-6.0) 10/13/20 Unknown U Epithel Cells (Auto) 5.0 /HPF (0-13.0) 10/13/20 Unknown Urine Bacteria (Auto) 2+ /HPF (Negative) 10/13/20 Unknown Calcium Oxalate Crystal Few 10/13/20 Unknown Uric Acid Crystals 1+ 10/13/20 Unknown Urine Mucus Few /HPF 10/13/20 Unknown Urine Yeast (Budding) Few /HPF 10/13/20 Unknown Salicylates < 0.3 mg/dL (2.8-20.0) L 10/13/20 21:40 Urine Opiates Screen Presumptive negative 10/13/20 Unknown Urine Methadone Screen Presumptive negative 10/13/20 Unknown Acetaminophen 5.0 ug/mL (10.0-30.0) L 10/13/20 21:40 Ur Barbiturates Screen Presumptive negative 10/13/20 Unknown Ur Phencyclidine Scrn Presumptive negative 10/13/20 Unknown Ur Amphetamines Screen Presumptive negative 10/13/20 Unknown U Benzodiazepines Scrn Presumptive negative 10/13/20 Unknown Urine Cocaine Screen Presumptive negative 10/13/20 Unknown U Marijuana (THC) Screen Presumptive negative 10/13/20 Unknown Drugs of Abuse Note Disclamer 10/13/20 Unknown Ethylene Glycol See scanned result 10/17/20 05:07 Plasma/Serum Alcohol < 0.01 % (0-0.07) 10/13/20 21:40 Coronavirus (PCR) Negative (Negative) 10/14/20 Unknown Hepatitis A IgM Ab Non-reactive (NonReactive) 10/14/20 05:12 Hep Bs Antigen Non-reactive (Negative) 10/14/20 05:12 Hep B Core IgM Ab Non-reactive (NonReactive) 10/14/20 05:12 Hepatitis C Antibody Non-reactive (NonReactive) 10/14/20 05:12 Gomez/IV: Voiding Method Toilet Active Medications - Current Medications Current Medications: Generic Name Dose Route Start Last Admin Trade Name Freq PRN Reason Stop Dose Admin Acetaminophen 650 mg 10/14/20 00:31 Acetaminophen 325 Mg Tab PO Q4H PRN Pain MILD(1-3)/Fever >100.5/TAYLOR Escitalopram Oxalate 10 mg 10/18/20 13:00 10/18/20 17:06 Escitalopram 10 Mg Tab PO Not Given QDAY MINH Famotidine 20 mg 10/18/20 11:00 10/18/20 17:05 Famotidine 20 Mg Tab PO Not Given DAILY MINH Heparin Sodium (Porcine) 5,000 unit 10/14/20 06:00 10/19/20 05:05 Heparin 5,000 Unit/1 Ml Vial SUB-Q 5,000 unit Q8HR MINH Administration Sodium Chloride 100 mls @ 999 mls/hr 10/14/20 00:31 Nacl 0.9% IV PHANI PRN Hypotension Ceftriaxone Sodium 2 gm in 100 mls @ 200 mls/hr 10/14/20 01:00 10/18/20 09:54 Rocephin/Ns 2 Gm/100 Ml IV 10/19/20 10:29 200 mls/hr Q24HR MINH Administration Protocol Magnesium Chloride 64 mg 10/17/20 11:00 10/18/20 09:55 Magnesium Chloride Er 64 Mg Tab PO 64 mg QDAY MINH Administration Mirtazapine 7.5 mg 10/18/20 22:00 10/18/20 22:32 Mirtazapine 15 Mg Tab PO 7.5 mg QHS MINH Administration Ondansetron HCl 4 mg 10/14/20 00:31 10/18/20 22:32 Ondansetron 4 Mg/2 Ml Inj IV 4 mg Q8H PRN Administration Nausea And Vomiting Oxycodone/Acetaminophen 1 tab 10/16/20 16:00 10/18/20 22:32 Oxycodone /Acetaminophen 5-325mg Tab PO 1 tab Q6H PRN Administration Pain, Moderate (4-6) Sodium Chloride 10 ml 10/14/20 10:00 10/18/20 22:33 Sodium Chloride 0.9% 10 Ml Flush Syringe IV 10 ml BID MINH Administration Sodium Chloride 10 ml 10/14/20 00:31 Sodium Chloride 0.9% 10 Ml Flush Syringe IV PRN PRN LINE FLUSH Zolpidem Tartrate 5 mg 10/18/20 12:53 Zolpidem 5 Mg Tab PO QHS PRN Insomnia
--- NOTE | 2020-10-19 09:46 | Progress Note ---
Subjective - Reason for Consult Consult date: 10/19/20 Reason for consult: suicidal attempt - Chief Complaint Chief complaint: The patient was seen today, she is calm, and cooperative. She is on the phone when I enter her room. She gets off to speak with me. She makes good eye contact. She says mentally she feels a lot better. The patient says physically she is sore. She denies SI/HI. The patient says, "no, not at all." She also denies hallucinations of any kind. REVIEW OF SYSTEMS Constitutional: Negative for weight loss ENT: Negative for stridor Respiratory: Negative for cough or hemoptysis All other systems reviewed and are negative MENTAL STATUS EXAMINATION General Appearance and Behavior: Age appropriate, good hygiene, wearing appropriate clothes,, good eye contact Cooperation: Participating/engaged, but Guarded Psychomotor Behavior: Psychomotor normal Mood: depressed Affect and affective range: irritable, labile Thought Process: illogical Thought Content: hopelessness, helplessness Speech: Normal rate, volume and rythm Intellectual Functioning: Average Suicidal Ideation: SI Homicidal Ideation: Denies HI Impulse Control: Impaired Insight and Judgment: Limited insight and judgment Memory: Normal Attention: Normal Orientation: Alert, oriented Assessment and Plan (1) MDD (major depressive disorder) Current Visit: Yes Status: Acute Treatment Plan Continue home Lexapro 10mg po daily Continue home Mirtazepine 7.5mg po qhs Continue Lunesta 2mg po qhs Risks, benefits and alternatives of medications discussed with the patient, questions answered and consent obtained from patient. PSYCHOTHERAPY: Supportive psychotherapy provided MEDICAL: Per primary team DELIRIUM PRECAUTIONS: Please re-orient patient frequently, keep lights on during the day, and minimize benzodiazepines and opiates as these medications could worsen patient's confusion. IMAGING CENTER MANAGER: Defer to primary DISPOSITION: Do not recommend acute inpatient psychiatric hospitalization at this time. Case discussed with Dr. Kim who agrees with current disposition FOLLOW-UP: Will follow Thank you for the consult. Please contact with any questions and/or concerns. Mental Status Exam - Vital signs Last Vital Signs Temp 98.3 F 10/19/20 03:51 Pulse 71 10/19/20 03:51 Resp 18 10/19/20 03:51 BP 115/70 10/19/20 03:51 Pulse Ox 96 10/19/20 03:51
[2020-10-19] MEDS ORDERED: ESZOPICLONE 2 MG PO SCH (10:00)
[2020-10-19] MEDS: cefTRIAXone/NS 2 GM/100 ML 2 GM/100 ML BAG IV SCH (10:34)
[2020-10-19] MEDS: FAMOTIDINE 20 MG TAB PO SCH (10:35)
[2020-10-19] MEDS: oxyCODONE /ACETAMINOPHEN 5-325MG TAB PO PRN ×2 (10:35→21:39)
[2020-10-19] MEDS: ESCITALOPRAM 10 MG TAB PO SCH (10:35)
[2020-10-19] MEDS: MAGNESIUM CHLORIDE ER 64 MG TAB PO SCH (10:35)
[2020-10-19] MEDS: MIRTAZAPINE 15 MG TAB PO SCH (21:39)
[2020-10-20 06:11] LABS: Hematocrit 30.8 % (30.3-42.9); Hemoglobin 10.9 gm/dl (10.1-14.3); Mean Corpuscular HGB Conc 35 % (30-34); Mean Corpuscular Volume 90 fl (79-97); Platelet Count 254 K/mm3 (140-440); Red Blood Count 3.42 M/mm3 (3.65-5.03); Red Cell Distribution Width 13.1 % (13.2-15.2)
[2020-10-20 06:27] LABS: Calcium 8.6 mg/dL (8.4-10.2)
[2020-10-20] MEDS: HEPARIN 5,000 UNIT/1 ML VIAL SUB-Q SCH ×3 (06:55→22:06)
[2020-10-20] MEDS ORDERED: SODIUM CHLORIDE 0.9% 100 ML IV PRN (08:00)
--- NOTE | 2020-10-20 08:22 | Progress Note ---
Subjective - Reason for Consult Consult date: 10/20/20 Reason for consult: suicide attempt - Chief Complaint Chief complaint: The patient was seen today, she is awake. She is calm, and cooperative, and pleasant. The patient says "I'm doing so much better." She says "last night is the first time I slept good in weeks. I didn't even have any crazy dreams." She denies hallucinations of any kind. When asking about any SI/HI or any thoughts of and dying, the patient states, "no, I definitely won't do that again." She says, "no, I don't want to hurt myself or anybody." The patient also denies any fear or feelings of endangerment. REVIEW OF SYSTEMS Constitutional: Negative for weight loss ENT: Negative for stridor Respiratory: Negative for cough or hemoptysis All other systems reviewed and are negative MENTAL STATUS EXAMINATION General Appearance and Behavior: Age appropriate, good hygiene, wearing appropriate clothes, good eye contact, calm, pleasant Cooperation: Participating/engaged, but Guarded Psychomotor Behavior: Psychomotor normal Mood: much better Affect and affective range: Euthymic Thought Process: logical, goal oriented Thought Content: optimism Speech: Normal rate, volume and rhythm Intellectual Functioning: Average Suicidal Ideation: Denies Homicidal Ideation: Denies Impulse Control: Unimpaired Insight and Judgment: Limited insight and judgment Memory: Normal Attention: Normal Orientation: Alert, oriented Assessment and Plan (1) MDD (major depressive disorder) Current Visit: Yes Status: Acute Treatment Plan Continue home Lexapro 10mg po daily Continue home Mirtazepine 7.5mg po qhs Continue Lunesta 2mg po qhs Risks, benefits and alternatives of medications discussed with the patient, questions answered and consent obtained from patient. PSYCHOTHERAPY: Supportive psychotherapy provided MEDICAL: Per primary team DELIRIUM PRECAUTIONS: Please re-orient patient frequently, keep lights on during the day, and minimize benzodiazepines and opiates as these medications could worsen patient's confusion. SPEEDER TENDER: Defer to primary DISPOSITION: Do not recommend acute inpatient psychiatric hospitalization at this time. The patient understands that if suicidal thoughts are to reoccur she is to seek immediate assistance. Will sign off. Thank you for this consult. The patient to follow up in 7 to 14 days upon discharge. The assessors to further discuss safety plan, and give outpatient resources. Thank you for the consult. Please contact with any questions and/or concerns. Case discussed with Dr. Kim who agrees with current disposition Mental Status Exam - Vital signs Last Vital Signs Temp 98.6 F 10/20/20 07:45 Pulse 69 10/20/20 07:45 Resp 16 10/20/20 07:45 BP 106/71 10/20/20 07:45 Pulse Ox 93 10/20/20 07:45
--- NOTE | 2020-10-20 09:01 | Progress Note ---
Assessment and Plan - Patient Problems (1) Acute kidney failure Current Visit: Yes Status: Acute Plan to address problem: In the setting of ethylene glycol toxicity/poisoning. Has received daily HD, and her overall mentation and respiratory status has improved, and she is now out of the ICU on telemetry. Her mentation is back to her baseline, and she is on room air without any issues. labs this morning showing still signs of kidney injury. With worsening renal parameters noted over the weekend I will restart her on hemodialysis today and will maintain her on a Tuesday inpatient hemodialysis schedule. Anticipate this acute injury may have a prolonged course towards full renal recovery. We will continue to monitor closely. (2) Ethylene glycol poisoning Current Visit: Yes Status: Acute Qualifiers: Encounter type: initial encounter Injury intent: intentional self-harm Qualified Code(s): T52.8X2A - Toxic effect of other organic solvents, intentional self-harm, initial encounter Plan to address problem: S/P daily dialysis along with fomepizole and sodium bicarbonate infusion. Mentation has improved along with undetected ethylene glycol levels. Will monitor closely. (3) Hyperkalemia Current Visit: Yes Status: Acute Plan to address problem: Stable at this time. (4) Metabolic acidosis due to ethylene glycol Current Visit: Yes Status: Acute Plan to address problem: Improved with treatment/dialysis (5) Metabolic encephalopathy Current Visit: Yes Status: Acute Plan to address problem: Her overall mentation has improved at this time. Subjective Date of service: 10/20/20 Principal diagnosis: Ethylene glycol poisoning, metabolic acidosis, hyperkalemia, acute kidney Interval history: function noted this morning to worsen. We will plan for hemodialysis today. Objective - Vital Signs Vital signs: Vital Signs - 12hr 10/19/20 10/19/20 10/19/20 21:39 22:00 22:39 Temperature Pulse Rate 70 Respiratory 20 20 Rate Respiratory 20 Rate [Right Neck] Blood Pressure O2 Sat by Pulse Oximetry 10/19/20 10/20/20 10/20/20 23:05 03:57 07:45 Temperature 98.8 F 98.2 F 98.6 F Pulse Rate 69 67 69 Respiratory 14 17 16 Rate Respiratory Rate [Right Neck] Blood Pressure 110/75 128/72 106/71 O2 Sat by Pulse 97 92 93 Oximetry - General Appearance General appearance: well-developed, appears stated age EENT: ATNC Neck: no JVD Respiratory: Present: Clear to Ascultation, Normal Exam Cardiology: regular, S1S2 Gastrointestinal: normal Integumentary: no rash Neurologic: no focal deficit Musculoskeletal: deferred Psychiatric: cooperative - Lab 10/20/20 05:29 10/20/20 05:29 Most recent lab results ABG pH 7.096 pH Units (7.350-7.450) L* 10/14/20 01:30 ABG pCO2 8.1 mm Hg 10/14/20 01:30 ABG pO2 125.0 mm Hg (80.0-90.0) H 10/14/20 01:30 ABG HCO3 2.4 mmol/L (20.0-26.0) L 10/14/20 01:30 ABG O2 Saturation 97.8 % (95.0-99.0) 10/14/20 01:30 Calcium 8.6 mg/dL (8.4-10.2) 10/20/20 05:29 Phosphorus 2.30 mg/dL (2.5-4.5) L 10/17/20 05:07 Magnesium 1.50 mg/dL (1.7-2.3) L 10/18/20 07:28 - Allied health notes Allied health notes reviewed: nursing Medications & Allergies - Medications Allergies/Adverse Reactions: Allergies No Known Allergies Allergy (Unverified 06/29/13 00:00) Home Medications: Home Medications Medication Instructions Recorded Confirmed Last Taken Type Eszopiclone [Lunesta] 2 mg PO DAILY 10/14/20 10/14/20 2 Weeks Ago History ~09/30/20 Lexapro 7.5 mg PO DAILY 10/14/20 10/14/20 2 Weeks Ago History ~09/30/20 Remeron 10 mg PO DAILY 10/14/20 10/14/20 2 Weeks Ago History ~09/30/20 Escitalopram [Lexapro] 10 mg PO DAILY #30 tablet 10/19/20 Unknown Rx Eszopiclone [Lunesta] 2 mg PO QHS #30 tablet 10/19/20 Unknown Rx Mirtazapine 7.5 mg PO QHS #30 tablet 10/19/20 Unknown Rx Active Medications: Generic Name Dose Route Start Last Admin Trade Name Freq PRN Reason Stop Dose Admin Acetaminophen 650 mg 10/14/20 00:31 Acetaminophen 325 Mg Tab PO Q4H PRN Pain MILD(1-3)/Fever >100.5/TAYLOR Escitalopram Oxalate 10 mg 10/18/20 13:00 10/19/20 10:35 Escitalopram 10 Mg Tab PO 10 mg QDAY MINH Administration Famotidine 20 mg 10/18/20 11:00 10/19/20 10:35 Famotidine 20 Mg Tab PO 20 mg DAILY MINH Administration Heparin Sodium (Porcine) 5,000 unit 10/14/20 06:00 10/20/20 06:55 Heparin 5,000 Unit/1 Ml Vial SUB-Q 5,000 unit Q8HR MINH Administration Sodium Chloride 100 mls @ 999 mls/hr 10/20/20 08:00 Nacl 0.9% IV PHANI PRN Hypotension Magnesium Chloride 64 mg 10/17/20 11:00 10/19/20 10:35 Magnesium Chloride Er 64 Mg Tab PO 64 mg QDAY MINH Administration Mirtazapine 7.5 mg 10/18/20 22:00 10/19/20 21:39 Mirtazapine 15 Mg Tab PO 7.5 mg QHS MINH Administration Ondansetron HCl 4 mg 10/14/20 00:31 10/18/20 22:32 Ondansetron 4 Mg/2 Ml Inj IV 4 mg Q8H PRN Administration Nausea And Vomiting Oxycodone/Acetaminophen 1 tab 10/16/20 16:00 10/19/20 21:39 Oxycodone /Acetaminophen 5-325mg Tab PO 1 tab Q6H PRN Administration Pain, Moderate (4-6) Sodium Chloride 10 ml 10/14/20 10:00 10/19/20 21:42 Sodium Chloride 0.9% 10 Ml Flush Syringe IV 10 ml BID MINH Administration Sodium Chloride 10 ml 10/14/20 00:31 Sodium Chloride 0.9% 10 Ml Flush Syringe IV PRN PRN LINE FLUSH Zolpidem Tartrate 5 mg 10/18/20 12:53 Zolpidem 5 Mg Tab PO QHS PRN Insomnia
--- NOTE | 2020-10-20 13:07 | Progress Note ---
Assessment and Plan Assessment and plan: This is a 25-year-old female with depression, PTSD, anxiety who is admitted for intentional ingestion of ethylene glycol Suicide attempt Patient denies any suicidal ideation at this time Behavioral health consulted Patient started on Lunesta, Lexapro, mirtazapine. Ethylene Glycol Poisoning Ethylene glycol levels undetectable, results reviewed DC fomepizole 15 mg/kg every 12 hours Acute tubular necrosis Acute Kidney Injury 2/2 Ethylene Glycol Poisoning Nephrology consulted Permacath placed Continue to monitor kidney function Patient will most likely need outpatient dialysis Tuesday. Major depressive disorder Lexapro and mirtazapine restarted Metabolic Acidosis d/t ethylene glycol Fluids with bicarb Leukocytosis. Downtrending Continue antibiotics Hyperkalemia Resolved Hypokalemia Potassium supplementation Constipation Duplex CODE STATUS: Full Disposition: Continue to trend creatinine over the weekend. Case management working on making arrangements for outpatient dialysis if needed. History Interval history: 10/15/2020: Patient seen and examined, no overnight events, states that she feels as if she has generalized body pain. No fevers or chills. No nausea vomiting. 10/16/2020: Patient seen and examined, came back from dialysis, somewhat lethargic. No nausea or vomiting tolerating diet. 10/17/2020: Patient has some pain in her chest after permacath placed, controlled with Percocet. No nausea vomiting tolerating diet. 10/18/2020: Patient seen and examined this morning, has minimal nausea, pain c ontrolled. 10/19/2020: Patient seen and examined, pain controlled, finished breakfast. Spoke to the patient pertaining to worsening creatinine 10/20/2020: Patient seen in hemodialysis, states that she has had a bowel movement since Tuesday, tolerating diet. Hospitalist Physical - Physical exam Narrative exam: General appearance: no acute distress, well-nourished EENT: PERRL, EOM intact, hearing intact, clear oral mucosa Neck: Present: supple, normal ROM Respiratory: bilateral CTA, negative: rales, rhonchi, wheezing Cardiovascular: Regular rate/rhythm, Normal S1 & S2. No gallop, rub, permacath in chest Extremities: no ischemia, No edema, normal temperature, normal color, Full ROM Abdominal: soft, no tenderness, non-distended, normal bowel sounds Integumentary: Present: clear, warm, dry no wounds, no erythema noted Psychiatric: appropriate mood/affect, intact judgment & insight Neurologic: CNII-XII intact, moves all extremities, no sensory or motor abnormalities - Constitutional Vitals: Temp Pulse Resp BP Pulse Ox 98.3 F 74 18 124/75 93 10/20/20 10:05 10/20/20 12:45 10/20/20 10:05 10/20/20 12:45 10/20/20 07:45 General appearance: Present: no acute distress, well-nourished Results - Labs CBC & Chem 7: 10/20/20 05:29 10/20/20 05:29 Labs: Laboratory Last Values WBC 10.9 K/mm3 (4.5-11.0) 10/20/20 05:29 RBC 3.42 M/mm3 (3.65-5.03) L 10/20/20 05:29 Hgb 10.9 gm/dl (10.1-14.3) 10/20/20 05:29 Hct 30.8 % (30.3-42.9) 10/20/20 05:29 MCV 90 fl (79-97) 10/20/20 05:29 MCH 32 pg (28-32) 10/20/20 05:29 MCHC 35 % (30-34) H 10/20/20 05:29 RDW 13.1 % (13.2-15.2) L 10/20/20 05:29 Plt Count 254 K/mm3 (140-440) 10/20/20 05:29 Lymph % (Auto) 15.0 % (13.4-35.0) 10/15/20 04:24 [place] % (Auto) 7.9 % (0.0-7.3) H 10/15/20 04:24 Eos % (Auto) 0.1 % (0.0-4.3) 10/15/20 04:24 Baso % (Auto) 0.4 % (0.0-1.8) 10/15/20 04:24 Lymph # (Auto) 2.4 K/mm3 (1.2-5.4) 10/15/20 04:24 [place] # (Auto) 1.3 K/mm3 (0.0-0.8) H 10/15/20 04:24 Eos # (Auto) 0.0 K/mm3 (0.0-0.4) 10/15/20 04:24 Baso # (Auto) 0.1 K/mm3 (0.0-0.1) 10/15/20 04:24 Add Manual Diff Complete 10/13/20 21:40 Total Counted 100 10/13/20 21:40 Seg Neutrophils % 76.6 % (40.0-70.0) H 10/15/20 04:24 Seg Neuts % (Manual) 68.0 % (40.0-70.0) 10/13/20 21:40 Lymphocytes % (Manual) 23.0 % (13.4-35.0) 10/13/20 21:40 Monocytes % (Manual) 9.0 % (0.0-7.3) H 10/13/20 21:40 Nucleated RBC % Not Reportable 10/13/20 21:40 Seg Neutrophils # 12.3 K/mm3 (1.8-7.7) H 10/15/20 04:24 Seg Neutrophils # Man 15.0 K/mm3 (1.8-7.7) H 10/13/20 21:40 Band Neutrophils # 0.0 K/mm3 10/13/20 21:40 Lymphocytes # (Manual) 5.1 K/mm3 (1.2-5.4) 10/13/20 21:40 Abs React Lymphs (Man) 0.0 K/mm3 10/13/20 21:40 Monocytes # (Manual) 2.0 K/mm3 (0.0-0.8) H 10/13/20 21:40 Eosinophils # (Manual) 0.0 K/mm3 (0.0-0.4) 10/13/20 21:40 Basophils # (Manual) 0.0 K/mm3 (0.0-0.1) 10/13/20 21:40 Metamyelocytes # 0.0 K/mm3 10/13/20 21:40 Myelocytes # 0.0 K/mm3 10/13/20 21:40 Promyelocytes # 0.0 K/mm3 10/13/20 21:40 Blast Cells # 0.0 K/mm3 10/13/20 21:40 WBC Morphology Not Reportable 10/13/20 21:40 Hypersegmented Neuts Not Reportable 10/13/20 21:40 Hyposegmented Neuts Not Reportable 10/13/20 21:40 Hypogranular Neuts Not Reportable 10/13/20 21:40 Smudge Cells Not Reportable 10/13/20 21:40 Toxic Granulation Not Reportable 10/13/20 21:40 Toxic Vacuolation Not Reportable 10/13/20 21:40 Dohle Bodies Not Reportable 10/13/20 21:40 Pelger-Huet Anomaly Not Reportable 10/13/20 21:40 Benjy Rods Not Reportable 10/13/20 21:40 Platelet Estimate Not Reportable 10/13/20 21:40 Clumped Platelets Not Reportable 10/13/20 21:40 Plt Clumps, EDTA Not Reportable 10/13/20 21:40 Large Platelets Not Reportable 10/13/20 21:40 Giant Platelets Not Reportable 10/13/20 21:40 Platelet Satelliting Not Reportable 10/13/20 21:40 Plt Morphology Comment Not Reportable 10/13/20 21:40 RBC Morphology Normal 10/13/20 21:40 Dimorphic RBCs Not Reportable 10/13/20 21:40 Polychromasia Not Reportable 10/13/20 21:40 Hypochromasia Not Reportable 10/13/20 21:40 Poikilocytosis Not Reportable 10/13/20 21:40 Anisocytosis Not Reportable 10/13/20 21:40 Microcytosis Not Reportable 10/13/20 21:40 Macrocytosis Not Reportable 10/13/20 21:40 Spherocytes Not Reportable 10/13/20 21:40 Pappenheimer Bodies Not Reportable 10/13/20 21:40 Sickle Cells Not Reportable 10/13/20 21:40 Target Cells Not Reportable 10/13/20 21:40 Tear Drop Cells Not Reportable 10/13/20 21:40 Ovalocytes Not Reportable 10/13/20 21:40 Helmet Cells Not Reportable 10/13/20 21:40 Jeong-Emerson Bodies Not Reportable 10/13/20 21:40 [place] Rings Not Reportable 10/13/20 21:40 Raissa Cells Not Reportable 10/13/20 21:40 Bite Cells Not Reportable 10/13/20 21:40 Crenated Cell Not Reportable 10/13/20 21:40 Elliptocytes Not Reportable 10/13/20 21:40 Acanthocytes (Spur) Not Reportable 10/13/20 21:40 Rouleaux Not Reportable 10/13/20 21:40 Hemoglobin C Crystals Not Reportable 10/13/20 21:40 Schistocytes Not Reportable 10/13/20 21:40 Malaria parasites Not Reportable 10/13/20 21:40 Koffi Bodies Not Reportable 10/13/20 21:40 Hem Pathologist Commnt No 10/13/20 21:40 ABG pH 7.096 pH Units (7.350-7.450) L* 10/14/20 01:30 POC ABG pCO2 10.5 mmHg (32.0-48.0) L 10/13/20 22:07 ABG pCO2 8.1 mm Hg 10/14/20 01:30 POC ABG pO2 131.9 mmHg (83-108) H 10/13/20 22:07 ABG pO2 125.0 mm Hg (80.0-90.0) H 10/14/20 01:30 POC ABG HCO3 2.4 10/13/20 22:07 ABG HCO3 2.4 mmol/L (20.0-26.0) L 10/14/20 01:30 ABG O2 Saturation 97.8 % (95.0-99.0) 10/14/20 01:30 ABG O2 Content 21.6 (0.0-44) 10/14/20 01:30 POC ABG Base Excess -27.2 10/13/20 22:07 ABG Base Excess -24.6 mmol/L (-2.0-3.0) L 10/14/20 01:30 ABG Hemoglobin 15.9 gm/dl (12.0-16.0) 10/14/20 01:30 ABG Oxyhemoglobin 97.5 (94-98) 10/13/20 22:07 ABG Carboxyhemoglobin 1.0 % (0.0-5.0) 10/14/20 01:30 ABG Methemoglobin 0.6 % (0.0-1.5) 10/14/20 01:30 ABG Sodium 142.3 mmol/L (136.0-145.0) 10/13/20 22:07 ABG Potassium 5.4 mmol/L (3.40-4.50) H 10/13/20 22:07 ABG Chloride 114.0 mmol/L (98-107) H 10/13/20 22:07 ABG Glucose 97 mg/dL (65-95) H 10/13/20 22:07 VBG pH 7.281 (7.320-7.420) L 10/14/20 Unknown Oxyhemoglobin 96.3 % (95.0-99.0) 10/14/20 01:30 Carboxyhemoglobin 0.4 (0.5-1.5) L 10/13/20 22:07 FiO2 21 % 10/14/20 01:30 FiO2 % 21.0 10/13/20 22:07 Sodium 142 mmol/L (137-145) 10/20/20 05:29 Potassium 3.8 mmol/L (3.6-5.0) 10/20/20 05:29 Chloride 104.5 mmol/L (98-107) 10/20/20 05:29 Carbon Dioxide 27 mmol/L (22-30) 10/20/20 05:29 Anion Gap 14 mmol/L 10/20/20 05:29 BUN 16 mg/dL (7-17) 10/20/20 05:29 Creatinine 4.8 mg/dL (0.6-1.2) H 10/20/20 05:29 Estimated GFR 11 ml/min 10/20/20 05:29 BUN/Creatinine Ratio 3 % 10/20/20 05:29 Glucose 90 mg/dL (65-100) 10/20/20 05:29 Osmolality 320 Mosm/kg 10/13/20 21:46 Calcium 8.6 mg/dL (8.4-10.2) 10/20/20 05:29 Phosphorus 2.30 mg/dL (2.5-4.5) L 10/17/20 05:07 Magnesium 1.50 mg/dL (1.7-2.3) L 10/18/20 07:28 Total Bilirubin 0.50 mg/dL (0.1-1.2) 10/15/20 04:24 AST 23 units/L (5-40) 10/15/20 04:24 ALT 7 units/L (7-56) 10/15/20 04:24 Alkaline Phosphatase 57 units/L (35-129) 10/15/20 04:24 Total Protein 5.3 g/dL (6.3-8.2) L 10/15/20 04:24 Albumin 3.3 g/dL (3.9-5) L 10/15/20 04:24 Albumin/Globulin Ratio 1.7 % 10/15/20 04:24 HCG, Qual Negative (Negative) 10/13/20 21:40 Arterial Blood Glucose 97 mg/dL (65-95) H 10/13/20 22:07 Arterial Blood Ionized Calcium 5.3 mg/dL (4.6-5.3) 10/13/20 22:07 Urine Color Yellow (Yellow) 10/13/20 Unknown Urine Turbidity Slightly-cloudy (Clear) 10/13/20 Unknown Urine pH 5.0 (5.0-7.0) 10/13/20 Unknown Ur Specific [place] 1.010 (1.003-1.030) 10/13/20 Unknown Urine Protein 100 mg/dl mg/dL (Negative) 10/13/20 Unknown Urine Glucose (UA) Neg mg/dL (Negative) 10/13/20 Unknown Urine Ketones Neg mg/dL (Negative) 10/13/20 Unknown Urine Blood Lg (Negative) 10/13/20 Unknown Urine Nitrite Neg (Negative) 10/13/20 Unknown Urine Bilirubin Neg (Negative) 10/13/20 Unknown Urine Urobilinogen < 2.0 mg/dL (<2.0) 10/13/20 Unknown Ur Leukocyte Esterase Sm (Negative) 10/13/20 Unknown Urine WBC (Auto) 5.0 /HPF (0.0-6.0) 10/13/20 Unknown Urine RBC (Auto) > 182.0 /HPF (0.0-6.0) 10/13/20 Unknown U Epithel Cells (Auto) 5.0 /HPF (0-13.0) 10/13/20 Unknown Urine Bacteria (Auto) 2+ /HPF (Negative) 10/13/20 Unknown Calcium Oxalate Crystal Few 10/13/20 Unknown Uric Acid Crystals 1+ 10/13/20 Unknown Urine Mucus Few /HPF 10/13/20 Unknown Urine Yeast (Budding) Few /HPF 10/13/20 Unknown Salicylates < 0.3 mg/dL (2.8-20.0) L 10/13/20 21:40 Urine Opiates Screen Presumptive negative 10/13/20 Unknown Urine Methadone Screen Presumptive negative 10/13/20 Unknown Acetaminophen 5.0 ug/mL (10.0-30.0) L 10/13/20 21:40 Ur Barbiturates Screen Presumptive negative 10/13/20 Unknown Ur Phencyclidine Scrn Presumptive negative 10/13/20 Unknown Ur Amphetamines Screen Presumptive negative 10/13/20 Unknown U Benzodiazepines Scrn Presumptive negative 10/13/20 Unknown Urine Cocaine Screen Presumptive negative 10/13/20 Unknown U Marijuana (THC) Screen Presumptive negative 10/13/20 Unknown Drugs of Abuse Note Disclamer 10/13/20 Unknown Ethylene Glycol See scanned result 10/17/20 05:07 Plasma/Serum Alcohol < 0.01 % (0-0.07) 10/13/20 21:40 Coronavirus (PCR) Negative (Negative) 10/14/20 Unknown Hepatitis A IgM Ab Non-reactive (NonReactive) 10/14/20 05:12 Hep Bs Antigen Non-reactive (Negative) 10/14/20 05:12 Hep B Core IgM Ab Non-reactive (NonReactive) 10/14/20 05:12 Hepatitis C Antibody Non-reactive (NonReactive) 10/14/20 05:12 Gomez/IV: Voiding Method Toilet Active Medications - Current Medications Current Medications: Generic Name Dose Route Start Last Admin Trade Name Freq PRN Reason Stop Dose Admin Acetaminophen 650 mg 10/14/20 00:31 Acetaminophen 325 Mg Tab PO Q4H PRN Pain MILD(1-3)/Fever >100.5/TAYLOR Escitalopram Oxalate 10 mg 10/18/20 13:00 10/19/20 10:35 Escitalopram 10 Mg Tab PO 10 mg QDAY MINH Administration Famotidine 20 mg 10/18/20 11:00 10/19/20 10:35 Famotidine 20 Mg Tab PO 20 mg DAILY MINH Administration Heparin Sodium (Porcine) 5,000 unit 10/14/20 06:00 10/20/20 06:55 Heparin 5,000 Unit/1 Ml Vial SUB-Q 5,000 unit Q8HR MINH Administration Sodium Chloride 100 mls @ 999 mls/hr 10/20/20 08:00 Nacl 0.9% IV PHANI PRN Hypotension Magnesium Chloride 64 mg 10/17/20 11:00 10/19/20 10:35 Magnesium Chloride Er 64 Mg Tab PO 64 mg QDAY MINH Administration Mirtazapine 7.5 mg 10/18/20 22:00 10/19/20 21:39 Mirtazapine 15 Mg Tab PO 7.5 mg QHS MINH Administration Ondansetron HCl 4 mg 10/14/20 00:31 10/18/20 22:32 Ondansetron 4 Mg/2 Ml Inj IV 4 mg Q8H PRN Administration Nausea And Vomiting Oxycodone/Acetaminophen 1 tab 10/16/20 16:00 10/19/20 21:39 Oxycodone /Acetaminophen 5-325mg Tab PO 1 tab Q6H PRN Administration Pain, Moderate (4-6) Sodium Chloride 10 ml 10/14/20 10:00 10/19/20 21:42 Sodium Chloride 0.9% 10 Ml Flush Syringe IV 10 ml BID MINH Administration Sodium Chloride 10 ml 10/14/20 00:31 Sodium Chloride 0.9% 10 Ml Flush Syringe IV PRN PRN LINE FLUSH Zolpidem Tartrate 5 mg 10/18/20 12:53 Zolpidem 5 Mg Tab PO QHS PRN Insomnia Nutrition/Malnutrition Assess - Dietary Evaluation Nutrition/Malnutrition Findings: Nutrition Notes Start: 10/20/20 12:00 Freq: Status: Active Protocol: Document 10/20/20 12:01 TOI (Rec: 10/20/20 12:02 TOI [id number]) Nutrition Notes Need for Assessment generated from: LOS Initial or Follow up Brief Note Other Pertinent Diagnosis Suicide attempt, MDD Current Diet Regular Subjective/Other Information Pt screened for LOS. Unable to speak with pt. Inconsistent PO intake documentation. Minimum of two criteria No Nutrition Intervention Follow-Up By: 10/22/20 Additional Comments F/U: intakes, need for ONS and full assessment
[2020-10-20] MEDS: MAGNESIUM CHLORIDE ER 64 MG TAB PO SCH (14:30)
[2020-10-20] MEDS: ONDANSETRON 4 MG/2 ML INJ IV PRN (14:31)
[2020-10-20] MEDS: FAMOTIDINE 20 MG TAB PO SCH (14:31)
[2020-10-20] MEDS: ESCITALOPRAM 10 MG TAB PO SCH (14:31)
[2020-10-20] MEDS: oxyCODONE /ACETAMINOPHEN 5-325MG TAB PO PRN (17:21)
[2020-10-20] MEDS: MIRTAZAPINE 15 MG TAB PO SCH (22:05)
[2020-10-21] MEDS: oxyCODONE /ACETAMINOPHEN 5-325MG TAB PO PRN ×2 (01:06→09:00)
[2020-10-21] MEDS: HEPARIN 5,000 UNIT/1 ML VIAL SUB-Q SCH ×3 (05:07→22:23)
[2020-10-21] MEDS: ESCITALOPRAM 10 MG TAB PO SCH (09:26)
[2020-10-21] MEDS: FAMOTIDINE 20 MG TAB PO SCH (09:26)
--- NOTE | 2020-10-21 10:30 | Progress Note ---
Assessment and Plan - Patient Problems (1) Acute kidney failure Current Visit: Yes Status: Acute Plan to address problem: In the setting of ethylene glycol toxicity/poisoning. Has received daily HD, and her overall mentation and respiratory status has improved, and she is now out of the ICU on telemetry. Her mentation is back to her baseline, and she is on room air without any issues. With worsening renal parameters noted over the weekend she was restarted her on hemodialysis and will maintain her on a Tuesday inpatient hemodialysis schedule. Anticipate this acute injury may have a prolonged course towards full renal recovery. we will have case management work to have patient placed in an outpatient dialysis facility. (2) Ethylene glycol poisoning Current Visit: Yes Status: Acute Qualifiers: Encounter type: initial encounter Injury intent: intentional self-harm Qualified Code(s): T52.8X2A - Toxic effect of other organic solvents, intentional self-harm, initial encounter Plan to address problem: S/P daily dialysis along with fomepizole and sodium bicarbonate infusion. Mentation has improved along with undetected ethylene glycol levels. Will monitor closely. (3) Hyperkalemia Current Visit: Yes Status: Acute Plan to address problem: Stable at this time. (4) Metabolic acidosis due to ethylene glycol Current Visit: Yes Status: Acute Plan to address problem: Improved with treatment/dialysis (5) Metabolic encephalopathy Current Visit: Yes Status: Acute Plan to address problem: Her overall mentation has improved at this time. Subjective Date of service: 10/21/20 Principal diagnosis: Ethylene glycol poisoning, metabolic acidosis, hyperkalemia, acute kidney Interval history: no acute changes. Patient having still prolonged course of renal recovery. Anticipate she will need outpatient hemodialysis with close monitoring for renal recovery. She tolerated her hemodialysis treatment well yesterday. Appreciate case management help in order for placement at an outpatient dialysis facility. Objective - Vital Signs Vital signs: Vital Signs - 12hr 10/20/20 10/21/20 10/21/20 23:07 02:58 04:00 Temperature 98.6 F 98.2 F Pulse Rate 70 69 62 Respiratory 16 16 Rate Blood Pressure 119/72 Blood Pressure 99/47 [Left] O2 Sat by Pulse 96 92 Oximetry 10/21/20 10/21/20 06:59 08:05 Temperature 98.0 F Pulse Rate 70 62 Respiratory 18 Rate Blood Pressure 93/51 Blood Pressure [Left] O2 Sat by Pulse 94 Oximetry - General Appearance General appearance: well-developed, well-nourished EENT: ATNC Neck: no JVD Respiratory: Present: Clear to Ascultation, Normal Exam Cardiology: regular Gastrointestinal: normal Integumentary: no rash Neurologic: no focal deficit, alert and oriented x3 Musculoskeletal: deferred Psychiatric: cooperative - Lab 10/20/20 05:29 10/20/20 05:29 Most recent lab results ABG pH 7.096 pH Units (7.350-7.450) L* 10/14/20 01:30 ABG pCO2 8.1 mm Hg 10/14/20 01:30 ABG pO2 125.0 mm Hg (80.0-90.0) H 10/14/20 01:30 ABG HCO3 2.4 mmol/L (20.0-26.0) L 10/14/20 01:30 ABG O2 Saturation 97.8 % (95.0-99.0) 10/14/20 01:30 Calcium 8.6 mg/dL (8.4-10.2) 10/20/20 05:29 Phosphorus 2.30 mg/dL (2.5-4.5) L 10/17/20 05:07 Magnesium 1.50 mg/dL (1.7-2.3) L 10/18/20 07:28 - Allied health notes Allied health notes reviewed: nursing Medications & Allergies - Medications Allergies/Adverse Reactions: Allergies No Known Allergies Allergy (Unverified 06/29/13 00:00) Home Medications: Home Medications Medication Instructions Recorded Confirmed Last Taken Type Eszopiclone [Lunesta] 2 mg PO DAILY 10/14/20 10/14/20 2 Weeks Ago History ~09/30/20 Lexapro 7.5 mg PO DAILY 10/14/20 10/14/20 2 Weeks Ago History ~09/30/20 Remeron 10 mg PO DAILY 10/14/20 10/14/20 2 Weeks Ago History ~09/30/20 Escitalopram [Lexapro] 10 mg PO DAILY #30 tablet 10/19/20 Unknown Rx Eszopiclone [Lunesta] 2 mg PO QHS #30 tablet 10/19/20 Unknown Rx Mirtazapine 7.5 mg PO QHS #30 tablet 10/19/20 Unknown Rx Active Medications: Generic Name Dose Route Start Last Admin Trade Name Rolando PRN Reason Stop Dose Admin Acetaminophen 650 mg 10/14/20 00:31 Acetaminophen 325 Mg Tab PO Q4H PRN Pain MILD(1-3)/Fever >100.5/TAYLOR Bisacodyl 10 mg 10/20/20 13:08 Bisacodyl 5 Mg Tab PO QDAY PRN Constipation Escitalopram Oxalate 10 mg 10/18/20 13:00 10/21/20 09:26 Escitalopram 10 Mg Tab PO 10 mg QDAY MINH Administration Famotidine 20 mg 10/18/20 11:00 10/21/20 09:26 Famotidine 20 Mg Tab PO 20 mg DAILY MINH Administration Heparin Sodium (Porcine) 5,000 unit 10/14/20 06:00 10/21/20 05:07 Heparin 5,000 Unit/1 Ml Vial SUB-Q 5,000 unit Q8HR MINH Administration Sodium Chloride 100 mls @ 999 mls/hr 10/20/20 08:00 Nacl 0.9% IV PHANI PRN Hypotension Magnesium Chloride 64 mg 10/17/20 11:00 10/20/20 14:30 Magnesium Chloride Er 64 Mg Tab PO 64 mg QDAY MINH Administration Mirtazapine 7.5 mg 10/18/20 22:00 10/20/20 22:05 Mirtazapine 15 Mg Tab PO 7.5 mg QHS MINH Administration Ondansetron HCl 4 mg 10/14/20 00:31 10/20/20 14:31 Ondansetron 4 Mg/2 Ml Inj IV 4 mg Q8H PRN Administration Nausea And Vomiting Oxycodone/Acetaminophen 1 tab 10/16/20 16:00 10/21/20 01:06 Oxycodone /Acetaminophen 5-325mg Tab PO 1 tab Q6H PRN Administration Pain, Moderate (4-6) Sodium Chloride 10 ml 10/14/20 10:00 10/21/20 09:26 Sodium Chloride 0.9% 10 Ml Flush Syringe IV 10 ml BID MINH Administration Sodium Chloride 10 ml 10/14/20 00:31 Sodium Chloride 0.9% 10 Ml Flush Syringe IV PRN PRN LINE FLUSH Zolpidem Tartrate 5 mg 10/18/20 12:53 Zolpidem 5 Mg Tab PO QHS PRN Insomnia
[2020-10-21] MEDS: MAGNESIUM CHLORIDE ER 64 MG TAB PO SCH (12:36)
[2020-10-21] MEDS: ONDANSETRON 4 MG/2 ML INJ IV PRN (13:17)
--- NOTE | 2020-10-21 15:22 | Progress Note ---
Assessment and Plan This is a 25-year-old female with depression, PTSD, anxiety who is admitted for intentional ingestion of ethylene glycol Suicide attempt Patient denies any suicidal ideation at this time Behavioral health consulted Patient started on Lunesta, Lexapro, mirtazapine. Ethylene Glycol Poisoning Ethylene glycol levels undetectable, results reviewed DC fomepizole 15 mg/kg every 12 hours Acute tubular necrosis Acute Kidney Injury 2/2 Ethylene Glycol Poisoning Nephrology consulted Permacath placed Continue to monitor kidney function Patient will most likely need outpatient dialysis Tuesday. Major depressive disorder Lexapro and mirtazapine restarted Metabolic Acidosis d/t ethylene glycol Fluids with bicarb Leukocytosis. Downtrending Continue antibiotics Hyperkalemia Resolved Hypokalemia Potassium supplementation Constipation Duplex CODE STATUS: Full Disposition: Continue to trend creatinine over the weekend. Case management working on making arrangements for outpatient dialysis if needed. Daily clinical course: 10/15/2020: Patient seen and examined, no overnight events, states that she feels as if she has generalized body pain. No fevers or chills. No nausea vomiting. 10/16/2020: Patient seen and examined, came back from dialysis, somewhat lethargic. No nausea or vomiting tolerating diet. 10/17/2020: Patient has some pain in her chest after permacath placed, controlled with Percocet. No nausea vomiting tolerating diet. 10/18/2020: Patient seen and examined this morning, has minimal nausea, pain controlled. 10/19/2020: Patient seen and examined, pain controlled, finished breakfast. Spoke to the patient pertaining to worsening creatinine 10/20/2020: Patient seen in hemodialysis, states that she has had a bowel movement since Tuesday, tolerating diet. 10/21/20: Patient clinically stable, no acute issue overnight. Psych cleared for discharge and no need for inpatient psychiatric placement. Need outpatient dialysis set up. Discharge planning: d/c when Outpatient dialysis set up available. Subjective Date of service: 10/21/20 Principal diagnosis: Ethylene glycol poisoning, metabolic acidosis, hyperkalemia, acute kidney Interval history: Patient seen and examined. Medical records and medication list reviewed. No acute event overnight noted by the RN. Patient denies any chest pain or difficulty breathing. Patient is tolerating diet. Discussed plan of care at bedside with patient. Pending outpatient hemodialysis set up Objective - Exam Narrative Exam: GENERAL: well-developed and well-nourished young female lying on bed appeared to be in no discomfort. HEENT: Normocephalic. Atraumatic. No conjunctival congestion or icterus. Patient has moist mucous membranes. NECK: Supple. Trachea midline. CHEST/LUNGS: Clear to auscultated bilaterally, breathing nonlabored. No wheezes crackles or rhonchi. HEART/CARDIOVASCULAR: Regular in rate and rhythm. S1 and S2 positive. ABDOMEN: Abdomen is soft, nontender. Patient has normal bowel sounds. SKIN: There is no rash. Warm and dry. NEURO: No focal motor deficit. Follows command. MUSCULOSKELETAL: No joint effusion or tenderness. EXTRIMITY: No edema, no cyanosis or clubbing. PSYCH: Cooperative. - Constitutional Vitals: Vital Signs - 12hr 10/21/20 10/21/20 10/21/20 04:00 06:59 08:05 Temperature 98.2 F 98.0 F Pulse Rate 62 70 62 Respiratory 16 18 Rate Respiratory Rate [Right Neck] Blood Pressure 93/51 Blood Pressure 99/47 [Left] O2 Sat by Pulse 92 94 Oximetry 10/21/20 10:00 Temperature Pulse Rate 62 Respiratory Rate Respiratory 20 Rate [Right Neck] Blood Pressure Blood Pressure [Left] O2 Sat by Pulse Oximetry - Labs CBC & Chem 7: 10/20/20 05:29 10/20/20 05:29
[2020-10-21] MEDS: MIRTAZAPINE 15 MG TAB PO SCH (22:23)
[2020-10-22] MEDS: HEPARIN 5,000 UNIT/1 ML VIAL SUB-Q SCH ×3 (06:26→21:21)
--- NOTE | 2020-10-22 10:08 | Progress Note ---
Assessment and Plan - Patient Problems (1) Acute kidney failure Current Visit: Yes Status: Acute Plan to address problem: In the setting of ethylene glycol toxicity/poisoning. Has received daily HD, and her overall mentation and respiratory status has improved, and she is now out of the ICU on telemetry. Her mentation is back to her baseline, and she is on room air without any issues. With worsening renal parameters noted over the weekend she was restarted her on hemodialysis and will maintain her on a Tuesday inpatient hemodialysis schedule. Anticipate this acute injury may have a prolonged course towards full renal recovery. we will have case management work to have patient placed in an outpatient dialysis facility. Have let CM know to also try placement at [facility]. (2) Ethylene glycol poisoning Current Visit: Yes Status: Acute Qualifiers: Encounter type: initial encounter Injury intent: intentional self-harm Qualified Code(s): T52.8X2A - Toxic effect of other organic solvents, intentional self-harm, initial encounter Plan to address problem: S/P daily dialysis along with fomepizole and sodium bicarbonate infusion. Mentation has improved along with undetected ethylene glycol levels. Will monitor closely. (3) Hyperkalemia Current Visit: Yes Status: Acute Plan to address problem: Stable at this time. (4) Metabolic acidosis due to ethylene glycol Current Visit: Yes Status: Acute Plan to address problem: Improved with treatment/dialysis (5) Metabolic encephalopathy Current Visit: Yes Status: Acute Plan to address problem: Her overall mentation has improved at this time. Subjective Date of service: 10/22/20 Principal diagnosis: Ethylene glycol poisoning, metabolic acidosis, hyperkalemia, acute kidney Interval history: No acute issues, pending outpatient HD placement. Seen at HD. Objective - Vital Signs Vital signs: Vital Signs - 12hr 10/21/20 10/21/20 10/22/20 22:41 23:00 03:40 Temperature 99.4 F 99.0 F Pulse Rate 82 94 H 64 Respiratory 17 17 Rate Blood Pressure 100/62 100/58 O2 Sat by Pulse 97 93 Oximetry 10/22/20 10/22/20 10/22/20 08:45 09:00 09:02 Temperature 98.2 F Pulse Rate 64 64 60 Respiratory 16 Rate Blood Pressure 121/73 121/72 O2 Sat by Pulse Oximetry 10/22/20 09:15 Temperature Pulse Rate 62 Respiratory Rate Blood Pressure 107/62 O2 Sat by Pulse Oximetry - General Appearance General appearance: well-developed, appears stated age EENT: ATNC Neck: no JVD Cardiology: regular Gastrointestinal: normal Integumentary: no rash, warm and dry Neurologic: no focal deficit, alert and oriented x3 Musculoskeletal: deferred Psychiatric: cooperative - Lab 10/20/20 05:29 10/20/20 05:29 Most recent lab results ABG pH 7.096 pH Units (7.350-7.450) L* 10/14/20 01:30 ABG pCO2 8.1 mm Hg 10/14/20 01:30 ABG pO2 125.0 mm Hg (80.0-90.0) H 10/14/20 01:30 ABG HCO3 2.4 mmol/L (20.0-26.0) L 10/14/20 01:30 ABG O2 Saturation 97.8 % (95.0-99.0) 10/14/20 01:30 Calcium 8.6 mg/dL (8.4-10.2) 10/20/20 05:29 Phosphorus 3.80 mg/dL (2.5-4.5) 10/21/20 17:14 Magnesium 2.00 mg/dL (1.7-2.3) 10/21/20 17:14 - Allied health notes Allied health notes reviewed: nursing Medications & Allergies - Medications Allergies/Adverse Reactions: Allergies No Known Allergies Allergy (Unverified 06/29/13 00:00) Home Medications: Home Medications Medication Instructions Recorded Confirmed Last Taken Type Eszopiclone [Lunesta] 2 mg PO DAILY 10/14/20 10/14/20 2 Weeks Ago History ~09/30/20 Lexapro 7.5 mg PO DAILY 10/14/20 10/14/20 2 Weeks Ago History ~09/30/20 Remeron 10 mg PO DAILY 10/14/20 10/14/20 2 Weeks Ago History ~09/30/20 Escitalopram [Lexapro] 10 mg PO DAILY #30 tablet 10/19/20 Unknown Rx Eszopiclone [Lunesta] 2 mg PO QHS #30 tablet 10/19/20 Unknown Rx Mirtazapine 7.5 mg PO QHS #30 tablet 10/19/20 Unknown Rx Active Medications: Generic Name Dose Route Start Last Admin Trade Name Freq PRN Reason Stop Dose Admin Acetaminophen 650 mg 10/14/20 00:31 Acetaminophen 325 Mg Tab PO Q4H PRN Pain MILD(1-3)/Fever >100.5/TAYLOR Bisacodyl 10 mg 10/20/20 13:08 Bisacodyl 5 Mg Tab PO QDAY PRN Constipation Escitalopram Oxalate 10 mg 10/18/20 13:00 10/21/20 09:26 Escitalopram 10 Mg Tab PO 10 mg QDAY MINH Administration Famotidine 20 mg 10/18/20 11:00 10/21/20 09:26 Famotidine 20 Mg Tab PO 20 mg DAILY MINH Administration Heparin Sodium (Porcine) 5,000 unit 10/14/20 06:00 10/22/20 06:26 Heparin 5,000 Unit/1 Ml Vial SUB-Q 5,000 unit Q8HR MINH Administration Sodium Chloride 100 mls @ 999 mls/hr 10/20/20 08:00 Nacl 0.9% IV PHANI PRN Hypotension Magnesium Chloride 64 mg 10/17/20 11:00 10/21/20 12:36 Magnesium Chloride Er 64 Mg Tab PO 64 mg QDAY MINH Administration Mirtazapine 7.5 mg 10/18/20 22:00 10/21/20 22:23 Mirtazapine 15 Mg Tab PO 7.5 mg QHS MINH Administration Ondansetron HCl 4 mg 10/14/20 00:31 10/21/20 13:17 Ondansetron 4 Mg/2 Ml Inj IV 4 mg Q8H PRN Administration Nausea And Vomiting Oxycodone/Acetaminophen 1 tab 10/16/20 16:00 10/21/20 09:00 Oxycodone /Acetaminophen 5-325mg Tab PO 1 tab Q6H PRN Administration Pain, Moderate (4-6) Sodium Chloride 10 ml 10/14/20 10:00 10/21/20 22:23 Sodium Chloride 0.9% 10 Ml Flush Syringe IV 10 ml BID MINH Administration Sodium Chloride 10 ml 10/14/20 00:31 Sodium Chloride 0.9% 10 Ml Flush Syringe IV PRN PRN LINE FLUSH Zolpidem Tartrate 5 mg 10/18/20 12:53 Zolpidem 5 Mg Tab PO QHS PRN Insomnia
[2020-10-22] MEDS: FAMOTIDINE 20 MG TAB PO SCH (15:39)
[2020-10-22] MEDS: ESCITALOPRAM 10 MG TAB PO SCH (15:39)
[2020-10-22] MEDS: MAGNESIUM CHLORIDE ER 64 MG TAB PO SCH (15:39)
[2020-10-22] MEDS: ONDANSETRON 4 MG/2 ML INJ IV PRN (15:40)
[2020-10-22] MEDS: oxyCODONE /ACETAMINOPHEN 5-325MG TAB PO PRN ×2 (15:40→21:22)
--- NOTE | 2020-10-22 15:45 | Progress Note ---
Assessment and Plan This is a 25-year-old female with depression, PTSD, anxiety who is admitted for intentional ingestion of ethylene glycol Suicide attempt Patient denies any suicidal ideation at this time Behavioral health consulted Patient started on Lunesta, Lexapro, mirtazapine. Ethylene Glycol Poisoning Ethylene glycol levels undetectable, results reviewed s/p fomepizole 15 mg/kg every 12 hours Acute tubular necrosis Acute Kidney Injury 2/2 Ethylene Glycol Poisoning Nephrology consulted Permacath placed Continue to monitor kidney function Patient will most likely need outpatient dialysis Tuesday. Major depressive disorder Lexapro and mirtazapine restarted Metabolic Acidosis d/t ethylene glycol s/p Fluids with bicarb Leukocytosis. Downtrending Continue antibiotics Hyperkalemia Resolved Hypokalemia Potassium supplementation Constipation Duplex CODE STATUS: Full Disposition: Continue to trend creatinine over the weekend. Case management working on making arrangements for outpatient dialysis if needed. Daily clinical course: 10/15/2020: Patient seen and examined, no overnight events, states that she feels as if she has generalized body pain. No fevers or chills. No nausea vomiting. 10/16/2020: Patient seen and examined, came back from dialysis, somewhat lethargic. No nausea or vomiting tolerating diet. 10/17/2020: Patient has some pain in her chest after permacath placed, controlled with Percocet. No nausea vomiting tolerating diet. 10/18/2020: Patient seen and examined this morning, has minimal nausea, pain controlled. 10/19/2020: Patient seen and examined, pain controlled, finished breakfast. Spoke to the patient pertaining to worsening creatinine 10/20/2020: Patient seen in hemodialysis, states that she has had a bowel movement since Tuesday, tolerating diet. 10/21/20 - todate: Patient clinically stable, no acute issue overnight. Psych cleared for discharge and no need for inpatient psychiatric placement. Need outpatient dialysis set up. Discharge planning: d/c when Outpatient dialysis set up available. Subjective Date of service: 10/22/20 Principal diagnosis: Ethylene glycol poisoning, metabolic acidosis, hyperkalemia, acute kidney Interval history: Patient seen and examined. Medical records and medication list reviewed. No acute event overnight noted by the RN. Patient denies any chest pain or difficulty breathing. Patient is tolerating diet. Discussed plan of care at bedside with patient. Pending outpatient hemodialysis set up Objective - Exam Narrative Exam: GENERAL: well-developed and well-nourished young female lying on bed appeared to be in no discomfort. HEENT: Normocephalic. Atraumatic. No conjunctival congestion or icterus. Patient has moist mucous membranes. NECK: Supple. Trachea midline. CHEST/LUNGS: Clear to auscultated bilaterally, breathing nonlabored. No wheezes crackles or rhonchi. HEART/CARDIOVASCULAR: Regular in rate and rhythm. S1 and S2 positive. ABDOMEN: Abdomen is soft, nontender. Patient has normal bowel sounds. SKIN: There is no rash. Warm and dry. NEURO: No focal motor deficit. Follows command. MUSCULOSKELETAL: No joint effusion or tenderness. EXTRIMITY: No edema, no cyanosis or clubbing. PSYCH: Cooperative. - Constitutional Vitals: Vital Signs - 12hr 10/22/20 10/22/20 10/22/20 07:14 08:45 09:00 Temperature 98.9 F 98.2 F Pulse Rate 69 64 64 Respiratory 18 16 Rate Blood Pressure 104/62 121/73 121/72 O2 Sat by Pulse 94 Oximetry 10/22/20 10/22/20 10/22/20 09:02 09:15 09:30 Temperature Pulse Rate 60 62 63 Respiratory Rate Blood Pressure 107/62 103/59 O2 Sat by Pulse Oximetry 10/22/20 10/22/20 10/22/20 09:45 10:00 10:15 Temperature Pulse Rate 64 62 65 Respiratory Rate Blood Pressure 108/65 100/63 114/67 O2 Sat by Pulse Oximetry 10/22/20 10/22/20 10/22/20 10:30 10:45 11:02 Temperature Pulse Rate 64 63 62 Respiratory Rate Blood Pressure 97/57 107/59 103/58 O2 Sat by Pulse Oximetry 10/22/20 10/22/20 10/22/20 11:15 11:30 11:45 Temperature Pulse Rate 63 67 68 Respiratory Rate Blood Pressure 103/58 113/61 103/57 O2 Sat by Pulse Oximetry 10/22/20 10/22/20 10/22/20 12:00 12:15 12:30 Temperature Pulse Rate 63 73 74 Respiratory Rate Blood Pressure 106/64 108/64 110/60 O2 Sat by Pulse Oximetry 10/22/20 12:46 Temperature 98.3 F Pulse Rate 75 Respiratory 16 Rate Blood Pressure 136/77 O2 Sat by Pulse Oximetry - Labs CBC & Chem 7: 10/20/20 05:29 10/20/20 05:29
[2020-10-22] MEDS: MIRTAZAPINE 15 MG TAB PO SCH (21:22)
[2020-10-23] MEDS: HEPARIN 5,000 UNIT/1 ML VIAL SUB-Q SCH ×3 (05:34→22:35)
--- NOTE | 2020-10-23 09:57 | Progress Note ---
Assessment and Plan - Patient Problems (1) Acute kidney failure Current Visit: Yes Status: Acute Plan to address problem: In the setting of ethylene glycol toxicity/poisoning. Has received daily HD, and her overall mentation and respiratory status has improved, and she is now out of the ICU on telemetry. Her mentation is back to her baseline, and she is on room air without any issues. With worsening renal parameters noted over the weekend she was restarted her on hemodialysis and will maintain her on a Tuesday inpatient hemodialysis schedule. Anticipate this acute injury may have a prolonged course towards full renal recovery. we will have case management work to have patient placed in an outpatient dialysis facility. (2) Ethylene glycol poisoning Current Visit: Yes Status: Acute Qualifiers: Encounter type: initial encounter Injury intent: intentional self-harm Qualified Code(s): T52.8X2A - Toxic effect of other organic solvents, intentional self-harm, initial encounter Plan to address problem: S/P daily dialysis along with fomepizole and sodium bicarbonate infusion. Mentation has improved along with undetected ethylene glycol levels. Will monitor closely. (3) Hyperkalemia Current Visit: Yes Status: Acute Plan to address problem: Stable at this time. (4) Metabolic acidosis due to ethylene glycol Current Visit: Yes Status: Acute Plan to address problem: Improved with treatment/dialysis (5) Metabolic encephalopathy Current Visit: Yes Status: Acute Plan to address problem: Her overall mentation has improved at this time. Subjective Date of service: 10/23/20 Principal diagnosis: Ethylene glycol poisoning, metabolic acidosis, hyperkalemia, acute kidney Interval history: No acute complaints, tolerating HD well, pending outpatient HD placement. No new labs this am. Objective - Vital Signs Vital signs: Vital Signs - 12hr 10/22/20 10/23/20 22:00 03:22 Temperature 97.6 F Pulse Rate 60 61 Respiratory 18 Rate Blood Pressure 97/54 O2 Sat by Pulse 98 96 Oximetry - General Appearance General appearance: well-developed, appears stated age EENT: ATNC Neck: no JVD, no thyromegaly Respiratory: Present: Clear to Ascultation, Normal Exam Cardiology: regular Gastrointestinal: normal, normoactive bowel sounds Integumentary: no rash Neurologic: no focal deficit, alert and oriented x3 Musculoskeletal: deferred Psychiatric: mood/affect appropriate, cooperative - Lab 10/20/20 05:29 10/20/20 05:29 Most recent lab results ABG pH 7.096 pH Units (7.350-7.450) L* 10/14/20 01:30 ABG pCO2 8.1 mm Hg 10/14/20 01:30 ABG pO2 125.0 mm Hg (80.0-90.0) H 10/14/20 01:30 ABG HCO3 2.4 mmol/L (20.0-26.0) L 10/14/20 01:30 ABG O2 Saturation 97.8 % (95.0-99.0) 10/14/20 01:30 Calcium 8.6 mg/dL (8.4-10.2) 10/20/20 05:29 Phosphorus 3.80 mg/dL (2.5-4.5) 10/21/20 17:14 Magnesium 2.00 mg/dL (1.7-2.3) 10/21/20 17:14 - Allied health notes Allied health notes reviewed: nursing Medications & Allergies - Medications Allergies/Adverse Reactions: Allergies No Known Allergies Allergy (Unverified 06/29/13 00:00) Home Medications: Home Medications Medication Instructions Recorded Confirmed Last Taken Type Eszopiclone [Lunesta] 2 mg PO DAILY 10/14/20 10/14/20 2 Weeks Ago History ~09/30/20 Lexapro 7.5 mg PO DAILY 10/14/20 10/14/20 2 Weeks Ago History ~09/30/20 Remeron 10 mg PO DAILY 10/14/20 10/14/20 2 Weeks Ago History ~09/30/20 Escitalopram [Lexapro] 10 mg PO DAILY #30 tablet 10/19/20 Unknown Rx Eszopiclone [Lunesta] 2 mg PO QHS #30 tablet 10/19/20 Unknown Rx Mirtazapine 7.5 mg PO QHS #30 tablet 10/19/20 Unknown Rx Active Medications: Generic Name Dose Route Start Last Admin Trade Name Freq PRN Reason Stop Dose Admin Acetaminophen 650 mg 10/14/20 00:31 Acetaminophen 325 Mg Tab PO Q4H PRN Pain MILD(1-3)/Fever >100.5/TAYLOR Bisacodyl 10 mg 10/20/20 13:08 Bisacodyl 5 Mg Tab PO QDAY PRN Constipation Escitalopram Oxalate 10 mg 10/18/20 13:00 10/22/20 15:39 Escitalopram 10 Mg Tab PO 10 mg QDAY MINH Administration Famotidine 20 mg 10/18/20 11:00 10/22/20 15:39 Famotidine 20 Mg Tab PO 20 mg DAILY MINH Administration Heparin Sodium (Porcine) 5,000 unit 10/14/20 06:00 10/23/20 05:34 Heparin 5,000 Unit/1 Ml Vial SUB-Q 5,000 unit Q8HR MINH Administration Sodium Chloride 100 mls @ 999 mls/hr 10/20/20 08:00 Nacl 0.9% IV PHANI PRN Hypotension Magnesium Chloride 64 mg 10/17/20 11:00 10/22/20 15:39 Magnesium Chloride Er 64 Mg Tab PO 64 mg QDAY MINH Administration Mirtazapine 7.5 mg 10/18/20 22:00 10/22/20 21:22 Mirtazapine 15 Mg Tab PO 7.5 mg QHS MINH Administration Ondansetron HCl 4 mg 10/14/20 00:31 10/22/20 15:40 Ondansetron 4 Mg/2 Ml Inj IV 4 mg Q8H PRN Administration Nausea And Vomiting Oxycodone/Acetaminophen 1 tab 10/16/20 16:00 10/22/20 21:22 Oxycodone /Acetaminophen 5-325mg Tab PO 1 tab Q6H PRN Administration Pain, Moderate (4-6) Sodium Chloride 10 ml 10/14/20 10:00 10/22/20 21:22 Sodium Chloride 0.9% 10 Ml Flush Syringe IV 10 ml BID MINH Administration Sodium Chloride 10 ml 10/14/20 00:31 Sodium Chloride 0.9% 10 Ml Flush Syringe IV PRN PRN LINE FLUSH Zolpidem Tartrate 5 mg 10/18/20 12:53 Zolpidem 5 Mg Tab PO QHS PRN Insomnia
[2020-10-23] MEDS: ONDANSETRON 4 MG/2 ML INJ IV PRN (12:56)
[2020-10-23] MEDS: FAMOTIDINE 20 MG TAB PO SCH (12:59)
[2020-10-23] MEDS: ACETAMINOPHEN 325 MG TAB PO PRN (12:59)
[2020-10-23] MEDS: ESCITALOPRAM 10 MG TAB PO SCH (12:59)
--- NOTE | 2020-10-23 14:39 | Progress Note ---
Assessment and Plan This is a 25-year-old female with depression, PTSD, anxiety who is admitted for intentional ingestion of ethylene glycol Suicide attempt Patient denies any suicidal ideation at this time Behavioral health consulted Patient started on Lunesta, Lexapro, mirtazapine. Ethylene Glycol Poisoning Ethylene glycol levels undetectable, results reviewed s/p fomepizole 15 mg/kg every 12 hours Acute tubular necrosis Acute Kidney Injury 2/2 Ethylene Glycol Poisoning Nephrology consulted Permacath placed Continue to monitor kidney function Patient will most likely need outpatient dialysis Tuesday. Major depressive disorder Lexapro and mirtazapine restarted Metabolic Acidosis d/t ethylene glycol s/p Fluids with bicarb Leukocytosis. Downtrending Continue antibiotics Hyperkalemia Resolved Hypokalemia Potassium supplementation Constipation Duplex CODE STATUS: Full Disposition: Continue to trend creatinine over the weekend. Case management working on making arrangements for outpatient dialysis if needed. Daily clinical course: 10/15/2020: Patient seen and examined, no overnight events, states that she feels as if she has generalized body pain. No fevers or chills. No nausea vomiting. 10/16/2020: Patient seen and examined, came back from dialysis, somewhat lethargic. No nausea or vomiting tolerating diet. 10/17/2020: Patient has some pain in her chest after permacath placed, controlled with Percocet. No nausea vomiting tolerating diet. 10/18/2020: Patient seen and examined this morning, has minimal nausea, pain controlled. 10/19/2020: Patient seen and examined, pain controlled, finished breakfast. Spoke to the patient pertaining to worsening creatinine 10/20/2020: Patient seen in hemodialysis, states that she has had a bowel movement since Tuesday, tolerating diet. 10/21/20 - todate: Patient clinically stable, no acute issue overnight. Psych cleared for discharge and no need for inpatient psychiatric placement. Need outpatient dialysis set up. Discharge planning: d/c when Outpatient dialysis set up available. Subjective Date of service: 10/23/20 Principal diagnosis: Ethylene glycol poisoning, metabolic acidosis, hyperkalemia, acute kidney Interval history: Patient seen and examined. Medical records and medication list reviewed. No acute event overnight noted by the RN. Patient denies any chest pain or difficulty breathing. Patient is tolerating diet. Discussed plan of care at bedside with patient. Pending outpatient hemodialysis set up Objective - Exam Narrative Exam: GENERAL: well-developed and well-nourished young female lying on bed appeared to be in no discomfort. HEENT: Normocephalic. Atraumatic. No conjunctival congestion or icterus. Patient has moist mucous membranes. NECK: Supple. Trachea midline. CHEST/LUNGS: Clear to auscultated bilaterally, breathing nonlabored. No wheezes crackles or rhonchi. HEART/CARDIOVASCULAR: Regular in rate and rhythm. S1 and S2 positive. ABDOMEN: Abdomen is soft, nontender. Patient has normal bowel sounds. SKIN: There is no rash. Warm and dry. NEURO: No focal motor deficit. Follows command. MUSCULOSKELETAL: No joint effusion or tenderness. EXTRIMITY: No edema, no cyanosis or clubbing. PSYCH: Cooperative. - Constitutional Vitals: Vital Signs - 12hr 10/23/20 10/23/20 10/23/20 03:22 08:00 11:18 Temperature 97.6 F 97.9 F 98.0 F Pulse Rate 61 63 60 Respiratory 18 16 16 Rate Blood Pressure 97/54 91/49 90/48 O2 Sat by Pulse 96 93 93 Oximetry - Labs CBC & Chem 7: 10/20/20 05:29 10/20/20 05:29
[2020-10-23] MEDS: MAGNESIUM CHLORIDE ER 64 MG TAB PO SCH (18:07)
[2020-10-23] MEDS: MIRTAZAPINE 15 MG TAB PO SCH (22:36)
[2020-10-24] MEDS: HEPARIN 5,000 UNIT/1 ML VIAL SUB-Q SCH ×3 (05:40→21:41)
--- NOTE | 2020-10-24 08:11 | Progress Note ---
Assessment and Plan - Patient Problems (1) Acute kidney failure Current Visit: Yes Status: Acute Plan to address problem: In the setting of ethylene glycol toxicity/poisoning. Has received daily HD, and her overall mentation and respiratory status has improved, and she is now out of the ICU on telemetry. Her mentation is back to her baseline, and she is on room air without any issues. With worsening renal parameters noted over the weekend she was restarted her on hemodialysis and will maintain her on a Tuesday inpatient hemodialysis schedule. Anticipate this acute injury may have a prolonged course towards full renal recovery. we will have case management work to have patient placed in an outpatient dialysis facility. (2) Ethylene glycol poisoning Current Visit: Yes Status: Acute Qualifiers: Encounter type: initial encounter Injury intent: intentional self-harm Qualified Code(s): T52.8X2A - Toxic effect of other organic solvents, intentional self-harm, initial encounter Plan to address problem: S/P daily dialysis along with fomepizole and sodium bicarbonate infusion. Mentation has improved along with undetected ethylene glycol levels. Will monitor closely. (3) Hyperkalemia Current Visit: Yes Status: Acute Plan to address problem: Stable at this time. (4) Metabolic acidosis due to ethylene glycol Current Visit: Yes Status: Acute Plan to address problem: Improved with treatment/dialysis (5) Metabolic encephalopathy Current Visit: Yes Status: Acute Plan to address problem: Her overall mentation has improved at this time. Subjective Date of service: 10/24/20 Principal diagnosis: Ethylene glycol poisoning, metabolic acidosis, hyperkalemia, acute kidney Interval history: Plan is for hemodialysis today. No new labs. We will obtain a basic metabolic panel prior to her treatments to assess her overall renal function. Objective - Vital Signs Vital signs: Vital Signs - 12hr 10/23/20 10/24/20 10/24/20 22:00 00:25 01:03 Temperature 97.8 F Pulse Rate 69 74 62 Respiratory 18 Rate Blood Pressure 108/76 O2 Sat by Pulse 97 Oximetry 10/24/20 10/24/20 10/24/20 03:54 04:04 07:48 Temperature 98.0 F Pulse Rate 62 65 68 Respiratory 18 Rate Blood Pressure 95/55 O2 Sat by Pulse 95 Oximetry - General Appearance General appearance: well-developed, appears stated age EENT: ATNC Neck: no JVD Respiratory: Present: Decreased Breath Sounds Cardiology: regular Gastrointestinal: normal Integumentary: no rash Neurologic: no focal deficit Musculoskeletal: deferred Psychiatric: mood/affect appropriate - Lab 10/20/20 05:29 10/20/20 05:29 Most recent lab results ABG pH 7.096 pH Units (7.350-7.450) L* 10/14/20 01:30 ABG pCO2 8.1 mm Hg 10/14/20 01:30 ABG pO2 125.0 mm Hg (80.0-90.0) H 10/14/20 01:30 ABG HCO3 2.4 mmol/L (20.0-26.0) L 10/14/20 01:30 ABG O2 Saturation 97.8 % (95.0-99.0) 10/14/20 01:30 Calcium 8.6 mg/dL (8.4-10.2) 10/20/20 05:29 Phosphorus 3.80 mg/dL (2.5-4.5) 10/21/20 17:14 Magnesium 2.00 mg/dL (1.7-2.3) 10/21/20 17:14 - Allied health notes Allied health notes reviewed: nursing Medications & Allergies - Medications Allergies/Adverse Reactions: Allergies No Known Allergies Allergy (Unverified 06/29/13 00:00) Home Medications: Home Medications Medication Instructions Recorded Confirmed Last Taken Type Eszopiclone [Lunesta] 2 mg PO DAILY 10/14/20 10/14/20 2 Weeks Ago History ~09/30/20 Lexapro 7.5 mg PO DAILY 10/14/20 10/14/20 2 Weeks Ago History ~09/30/20 Remeron 10 mg PO DAILY 10/14/20 10/14/20 2 Weeks Ago History ~09/30/20 Escitalopram [Lexapro] 10 mg PO DAILY #30 tablet 10/19/20 Unknown Rx Eszopiclone [Lunesta] 2 mg PO QHS #30 tablet 10/19/20 Unknown Rx Mirtazapine 7.5 mg PO QHS #30 tablet 10/19/20 Unknown Rx Active Medications: Generic Name Dose Route Start Last Admin Trade Name Freq PRN Reason Stop Dose Admin Acetaminophen 650 mg 10/14/20 00:31 10/23/20 12:59 Acetaminophen 325 Mg Tab PO 650 mg Q4H PRN Administration Pain MILD(1-3)/Fever >100.5/TAYLOR Bisacodyl 10 mg 10/20/20 13:08 Bisacodyl 5 Mg Tab PO QDAY PRN Constipation Escitalopram Oxalate 10 mg 10/18/20 13:00 10/23/20 12:59 Escitalopram 10 Mg Tab PO 10 mg QDAY MINH Administration Famotidine 20 mg 10/18/20 11:00 10/23/20 12:59 Famotidine 20 Mg Tab PO 20 mg DAILY MINH Administration Heparin Sodium (Porcine) 5,000 unit 10/14/20 06:00 10/24/20 05:40 Heparin 5,000 Unit/1 Ml Vial SUB-Q 5,000 unit Q8HR MINH Administration Sodium Chloride 100 mls @ 999 mls/hr 10/20/20 08:00 Nacl 0.9% IV PHANI PRN Hypotension Magnesium Chloride 64 mg 10/17/20 11:00 10/23/20 18:07 Magnesium Chloride Er 64 Mg Tab PO 64 mg QDAY MINH Administration Mirtazapine 7.5 mg 10/18/20 22:00 10/23/20 22:36 Mirtazapine 15 Mg Tab PO 7.5 mg QHS MINH Administration Ondansetron HCl 4 mg 10/14/20 00:31 10/23/20 12:56 Ondansetron 4 Mg/2 Ml Inj IV 4 mg Q8H PRN Administration Nausea And Vomiting Oxycodone/Acetaminophen 1 tab 10/16/20 16:00 10/22/20 21:22 Oxycodone /Acetaminophen 5-325mg Tab PO 1 tab Q6H PRN Administration Pain, Moderate (4-6) Sodium Chloride 10 ml 10/14/20 10:00 10/23/20 22:36 Sodium Chloride 0.9% 10 Ml Flush Syringe IV 10 ml BID MINH Administration Sodium Chloride 10 ml 10/14/20 00:31 Sodium Chloride 0.9% 10 Ml Flush Syringe IV PRN PRN LINE FLUSH Zolpidem Tartrate 5 mg 10/18/20 12:53 Zolpidem 5 Mg Tab PO QHS PRN Insomnia
[2020-10-24 09:19] LABS: Calcium 9.3 mg/dL (8.4-10.2)
[2020-10-24] MEDS: ACETAMINOPHEN 325 MG TAB PO PRN (13:24)
[2020-10-24] MEDS: ESCITALOPRAM 10 MG TAB PO SCH (13:24)
[2020-10-24] MEDS: ONDANSETRON 4 MG/2 ML INJ IV PRN (13:24)
--- NOTE | 2020-10-24 14:34 | Progress Note ---
Assessment and Plan This is a 25-year-old female with depression, PTSD, anxiety who is admitted for intentional ingestion of ethylene glycol Suicide attempt Patient denies any suicidal ideation at this time Behavioral health consulted Patient started on Lunesta, Lexapro, mirtazapine. Ethylene Glycol Poisoning Ethylene glycol levels undetectable, results reviewed s/p fomepizole 15 mg/kg every 12 hours Acute tubular necrosis Acute Kidney Injury 2/2 Ethylene Glycol Poisoning Nephrology consulted Permacath placed Continue to monitor kidney function Patient will most likely need outpatient dialysis Tuesday. Major depressive disorder Lexapro and mirtazapine restarted Metabolic Acidosis d/t ethylene glycol s/p Fluids with bicarb Leukocytosis. Downtrending Continue antibiotics Hyperkalemia Resolved Hypokalemia Potassium supplementation Constipation Duplex CODE STATUS: Full Disposition: Continue to trend creatinine over the weekend. Case management working on making arrangements for outpatient dialysis if needed. Daily clinical course: 10/15/2020: Patient seen and examined, no overnight events, states that she feels as if she has generalized body pain. No fevers or chills. No nausea vomiting. 10/16/2020: Patient seen and examined, came back from dialysis, somewhat lethargic. No nausea or vomiting tolerating diet. 10/17/2020: Patient has some pain in her chest after permacath placed, controlled with Percocet. No nausea vomiting tolerating diet. 10/18/2020: Patient seen and examined this morning, has minimal nausea, pain controlled. 10/19/2020: Patient seen and examined, pain controlled, finished breakfast. Spoke to the patient pertaining to worsening creatinine 10/20/2020: Patient seen in hemodialysis, states that she has had a bowel movement since Tuesday, tolerating diet. 10/21/20 - todate: Patient clinically stable, no acute issue overnight. Psych cleared for discharge and no need for inpatient psychiatric placement. Need outpatient dialysis set up. Discharge planning: d/c when Outpatient dialysis set up available. Subjective Date of service: 10/24/20 Principal diagnosis: Ethylene glycol poisoning, metabolic acidosis, hyperkalemia, acute kidney Interval history: Patient seen and examined. Medical records and medication list reviewed. No acute event overnight noted by the RN. Patient denies any chest pain or difficulty breathing. Patient is tolerating diet. Discussed plan of care at bedside with patient. Pending outpatient hemodialysis set up Objective - Exam Narrative Exam: GENERAL: well-developed and well-nourished young female lying on bed appeared to be in no discomfort. HEENT: Normocephalic. Atraumatic. No conjunctival congestion or icterus. Patient has moist mucous membranes. NECK: Supple. Trachea midline. CHEST/LUNGS: Clear to auscultated bilaterally, breathing nonlabored. No wheezes crackles or rhonchi. HEART/CARDIOVASCULAR: Regular in rate and rhythm. S1 and S2 positive. ABDOMEN: Abdomen is soft, nontender. Patient has normal bowel sounds. SKIN: There is no rash. Warm and dry. NEURO: No focal motor deficit. Follows command. MUSCULOSKELETAL: No joint effusion or tenderness. EXTRIMITY: No edema, no cyanosis or clubbing. PSYCH: Cooperative. - Constitutional Vitals: Vital Signs - 12hr 10/24/20 10/24/20 10/24/20 03:54 04:04 07:48 Temperature 98.0 F Pulse Rate 62 65 68 Respiratory 18 Rate Blood Pressure 95/55 O2 Sat by Pulse 95 Oximetry 10/24/20 10/24/20 10/24/20 08:05 08:45 09:00 Temperature 98.0 F 98.3 F Pulse Rate 67 65 65 Respiratory 19 16 Rate Blood Pressure 92/61 117/75 117/75 O2 Sat by Pulse 97 Oximetry 10/24/20 10/24/20 10/24/20 09:15 09:30 09:45 Temperature Pulse Rate 70 66 67 Respiratory Rate Blood Pressure 109/62 114/69 102/66 O2 Sat by Pulse Oximetry 10/24/20 10/24/20 10/24/20 10:00 10:15 10:30 Temperature Pulse Rate 69 67 73 Respiratory Rate Blood Pressure 104/68 110/64 111/66 O2 Sat by Pulse Oximetry 10/24/20 10/24/20 10/24/20 10:45 11:00 11:15 Temperature Pulse Rate 73 72 85 Respiratory Rate Blood Pressure 106/61 104/64 114/69 O2 Sat by Pulse Oximetry 10/24/20 10/24/20 10/24/20 11:30 11:45 12:00 Temperature Pulse Rate 73 73 75 Respiratory Rate Blood Pressure 118/69 108/66 104/56 O2 Sat by Pulse Oximetry 10/24/20 10/24/20 10/24/20 12:15 12:30 13:34 Temperature 98.3 F Pulse Rate 73 70 66 Respiratory 16 Rate Blood Pressure 106/58 100/50 113/64 O2 Sat by Pulse Oximetry - Labs CBC & Chem 7: 10/20/20 05:29 10/24/20 08:38 Labs: Abnormal lab results 10/24/20 Range/Units 08:38 Creatinine 2.6 H (0.6-1.2) mg/dL
[2020-10-24] MEDS: MAGNESIUM CHLORIDE ER 64 MG TAB PO SCH (14:47)
[2020-10-24] MEDS: FAMOTIDINE 20 MG TAB PO SCH (14:47)
[2020-10-24] MEDS: MIRTAZAPINE 15 MG TAB PO SCH (21:41)
[2020-10-25] MEDS: HEPARIN 5,000 UNIT/1 ML VIAL SUB-Q SCH ×3 (05:30→21:35)
[2020-10-25] MEDS: MAGNESIUM CHLORIDE ER 64 MG TAB PO SCH (09:28)
[2020-10-25] MEDS: FAMOTIDINE 20 MG TAB PO SCH (09:28)
[2020-10-25] MEDS: ESCITALOPRAM 10 MG TAB PO SCH (09:28)
--- NOTE | 2020-10-25 11:25 | Progress Note ---
Assessment and Plan - Patient Problems (1) Ethylene glycol poisoning Current Visit: Yes Status: Acute Qualifiers: Encounter type: initial encounter Injury intent: intentional self-harm Qualified Code(s): T52.8X2A - Toxic effect of other organic solvents, intentional self-harm, initial encounter Plan to address problem: Patient was started on bicarbonate drip, Fomepizole. Dialysis was initiated on presentation due to severe metabolic acidosis. Hemodialysis daily. Ethylene glycol level became undetectable on fomepizole and bicarbonate drip were stopped. Kidney function also appears to be improving (2) Acute kidney failure Current Visit: Yes Status: Acute Plan to address problem: Acute kidney failure toxin induced. Kidney function is improving. We will hold dialysis over the weekend. If kidney function is not better, patient will be discharged on Tuesday after dialysis and have to come to the emergency room for dialysis at least twice a week. Unfortunately we have not been able to arrange for outpatient dialysis at the clinic. If kidney function improves, we can discontinue the permacath on Tuesday and patient can be discharged home with follow-up in the office. (3) Hyperkalemia Current Visit: Yes Status: Acute Plan to address problem: Potassium has improved with dialysis. Potassium was not checked today. Follow- up potassium in the morning (4) Leukocytosis Current Visit: Yes Status: Acute Plan to address problem: Probably stress induced. Cultures were negative. Off of antibiotics (5) Metabolic acidosis due to ethylene glycol Current Visit: Yes Status: Acute Plan to address problem: Bicarbonate is now normal. (6) MDD (major depressive disorder) Current Visit: Yes Status: Acute Plan to address problem: Antidepressants resumed per Psychiatrist. Continue to follow-up with psychiatrist Subjective Date of service: 10/25/20 Principal diagnosis: Ethylene glycol poisoning, metabolic acidosis, hyperkalemia, acute kidney Interval history: Patient seen lying in bed. No complaints overnight. No vomiting. No shortness of breath. Objective - Exam Narrative Exam: Young lady lying in bed in no acute distress HEENT: NCAT, Neck: Supple, no venous distention CVS: S1S2 RRR with no murmur, rub or gallop Chest: Clear to auscultation Abdomen: Protuberant, soft, nontender, no organomegaly, bowel sounds are present Extremities: No edema Genitourinary deferred Skin warm and dry Neuro: Awake, alert no focal deficits - Vital Signs Vital signs: Vital Signs - 12hr 10/25/20 10/25/20 10/25/20 05:05 07:47 08:18 Temperature 98.0 F 99.0 F Pulse Rate 65 62 65 Respiratory 18 16 Rate Blood Pressure 105/61 90/48 O2 Sat by Pulse 94 95 Oximetry - Lab 10/20/20 05:29 10/24/20 08:38 Most recent lab results ABG pH 7.096 pH Units (7.350-7.450) L* 10/14/20 01:30 ABG pCO2 8.1 mm Hg 10/14/20 01:30 ABG pO2 125.0 mm Hg (80.0-90.0) H 10/14/20 01:30 ABG HCO3 2.4 mmol/L (20.0-26.0) L 10/14/20 01:30 ABG O2 Saturation 97.8 % (95.0-99.0) 10/14/20 01:30 Calcium 9.3 mg/dL (8.4-10.2) 10/24/20 08:38 Phosphorus 3.80 mg/dL (2.5-4.5) 10/21/20 17:14 Magnesium 2.00 mg/dL (1.7-2.3) 10/21/20 17:14 Medications & Allergies - Medications Allergies/Adverse Reactions: Allergies No Known Allergies Allergy (Unverified 06/29/13 00:00) Home Medications: Home Medications Medication Instructions Recorded Confirmed Last Taken Type Eszopiclone [Lunesta] 2 mg PO DAILY 10/14/20 10/14/20 2 Weeks Ago History ~09/30/20 Lexapro 7.5 mg PO DAILY 10/14/20 10/14/20 2 Weeks Ago History ~09/30/20 Remeron 10 mg PO DAILY 10/14/20 10/14/20 2 Weeks Ago History ~09/30/20 Escitalopram [Lexapro] 10 mg PO DAILY #30 tablet 10/19/20 Unknown Rx Eszopiclone [Lunesta] 2 mg PO QHS #30 tablet 10/19/20 Unknown Rx Mirtazapine 7.5 mg PO QHS #30 tablet 10/19/20 Unknown Rx Active Medications: Generic Name Dose Route Start Last Admin Trade Name Freq PRN Reason Stop Dose Admin Acetaminophen 650 mg 10/14/20 00:31 10/24/20 13:24 Acetaminophen 325 Mg Tab PO 650 mg Q4H PRN Administration Pain MILD(1-3)/Fever >100.5/TAYLOR Bisacodyl 10 mg 10/20/20 13:08 Bisacodyl 5 Mg Tab PO QDAY PRN Constipation Escitalopram Oxalate 10 mg 10/18/20 13:00 10/25/20 09:28 Escitalopram 10 Mg Tab PO 10 mg QDAY MINH Administration Famotidine 20 mg 10/18/20 11:00 10/25/20 09:28 Famotidine 20 Mg Tab PO 20 mg DAILY MINH Administration Heparin Sodium (Porcine) 5,000 unit 10/14/20 06:00 10/25/20 05:30 Heparin 5,000 Unit/1 Ml Vial SUB-Q 5,000 unit Q8HR MINH Administration Sodium Chloride 100 mls @ 999 mls/hr 10/20/20 08:00 Nacl 0.9% IV PHANI PRN Hypotension Magnesium Chloride 64 mg 10/17/20 11:00 10/25/20 09:28 Magnesium Chloride Er 64 Mg Tab PO 64 mg QDAY MINH Administration Mirtazapine 7.5 mg 10/18/20 22:00 10/24/20 21:41 Mirtazapine 15 Mg Tab PO 7.5 mg QHS MINH Administration Ondansetron HCl 4 mg 10/14/20 00:31 10/24/20 13:24 Ondansetron 4 Mg/2 Ml Inj IV 4 mg Q8H PRN Administration Nausea And Vomiting Oxycodone/Acetaminophen 1 tab 10/16/20 16:00 10/22/20 21:22 Oxycodone /Acetaminophen 5-325mg Tab PO 1 tab Q6H PRN Administration Pain, Moderate (4-6) Sodium Chloride 10 ml 10/14/20 10:00 10/25/20 09:28 Sodium Chloride 0.9% 10 Ml Flush Syringe IV 10 ml BID MINH Administration Sodium Chloride 10 ml 10/14/20 00:31 Sodium Chloride 0.9% 10 Ml Flush Syringe IV PRN PRN LINE FLUSH Zolpidem Tartrate 5 mg 10/18/20 12:53 Zolpidem 5 Mg Tab PO QHS PRN Insomnia
--- NOTE | 2020-10-25 16:00 | Discharge Summary ---
Providers - Providers Date of Admission: 10/13/20 23:42 Date of discharge: 10/27/20 Attending physician: ADITI MCCLENDON 10/14/20 00:28 Consult to Physician [CONS] Routine Comment: Dr. Winter spoke with Dr. Hutton @ 0026 Consulting Provider: LLUVIA HUTTON Physician Instructions: Reason For Exam: Dialysis due to Ethylene glycol OD 10/14/20 00:35 psychiatry consult [Consult to Mental Health] [CONS] Routine Reason For Exam: Drug overdose 10/14/20 07:20 Consult to Physician [CONS] Routine Comment: Consulting Provider: DEANDRE STEVEN Physician Instructions: Reason For Exam: suicide attempt 10/16/20 08:06 Consult to Physician [CONS] Urgent Comment: Consulting Provider: KAM MARCUM Physician Instructions: Reason For Exam: Renal failure needs Permacath for dialysis 10/16/20 08:45 Consult to Case Management [CONS] Routine Services Needed at Discharge: Other Notified:: case management Comment:: Arrange outpatient dialysis at [facility] Primary care physician: AGRICULTURAL EQUIPMENT DESIGN ENGINEER Hospitalization Condition: Serious Hospital course: 25-year-old lady with history of depression who ingested about 6 ounces of ethylene glycol with the intention of committing suicide. She has had suicidal attempt once in the past by breaking a mirror which cut her arm in 2019. She states that she was on 3 antidepressants but has not been able to afford them since she lost her insurance since she stopped working during the pandemic. On presentation, her bicarb was less than 2, potassium was high at 5.6 mmol/L. Kidney function normal. White blood cell was also elevated at 22,000. Patient was also started on fomepizole and bicarbonate drip. Nephrology was consulted for emergent hemodialysis. Psychiatry was consulted and patient was admitted for further evaluation and management. Dialysis was initiated on presentation due to severe metabolic acidosis. Ethylene glycol level became undetectable on fomepizole and bicarbonate drip were stopped. Kidney function also appears to be improving but patient is still requiring hemodialysis. Patient was initially recommended for outpatient dialysis set up but dependency case manager was unable to assist because patient does not have diagnosis of end-stage renal disease and she is unfunded. Patient renal function then monitored and continued to improve. Nephrology and recommended to remove PermCath and follow-up patient as outpatient without dialysis. Patient was recommended to follow-up with nephrology outpatient by end of this week and to have her repeat BMP to further planning and management. Patient verbalized understanding and was discharged home in stable condition. Daily clinical course: 10/15/2020: Patient seen and examined, no overnight events, states that she feels as if she has generalized body pain. No fevers or chills. No nausea vomiting. 10/16/2020: Patient seen and examined, came back from dialysis, somewhat lethargi c. No nausea or vomiting tolerating diet. 10/17/2020: Patient has some pain in her chest after permacath placed, controlled with Percocet. No nausea vomiting tolerating diet. 10/18/2020: Patient seen and examined this morning, has minimal nausea, pain controlled. 10/19/2020: Patient seen and examined, pain controlled, finished breakfast. Spoke to the patient pertaining to worsening creatinine 10/20/2020: Patient seen in hemodialysis, states that she has had a bowel movement since Tuesday, tolerating diet. 10/21/20 - todate: Patient clinically stable, no acute issue overnight. Psych cleared for discharge and no need for inpatient psychiatric placement. Need outpatient dialysis set up. Discharge planning: d/c when Outpatient dialysis set up available. 10/25/20; noted nephrology recommendation. Kidney function is improving. Plan to hold dialysis over the weekend. If kidney function is not better, patient will be discharged on Tuesday after dialysis and have to come to the emergency room for dialysis at least twice a week. Unfortunately we have not been able to arrange for outpatient dialysis at the clinic. If kidney function improves, we can discontinue the permacath on Tuesday and patient can be discharged home with outpatient follow-up. 10/26/20: Creatinine level continue to improve. We will repeat BMP tomorrow if creatinine remains stable plan to remove PermCath and discharge patient home with outpatient follow-up. 10/27/20: Creatinine 1.7 today. PermCath has been removed by vascular. Patient will be discharged home with outpatient follow-up with vamp seamer. Discharge plan and management was thoroughly discussed with patient and she verbalized understanding. Disposition: DC- TO HOME OR SELFCARE Final Discharge Diagnosis (Prints w/discharge instructions): Suicidal attempt. ethylene glycol poisoning. Acute tubular necrosis secondary to ethylene glycol poisoning. Major depressive disorder. Metabolic acidosis due to ethylene glycol. Leukocytosis, reactive. Hyperkalemia/hypokalemia. Constipation Time spent for discharge: 34 minutes Core Measure Documentation - Palliative Care Palliative Care/ Comfort Measures: Not Applicable - Core Measures Any of the following diagnoses?: none Exam - Physical Exam Narrative exam: GENERAL: well-developed and well-nourished young female lying on bed appeared to be in no discomfort. HEENT: Normocephalic. Atraumatic. No conjunctival congestion or icterus. Patient has moist mucous membranes. NECK: Supple. Trachea midline. CHEST/LUNGS: Clear to auscultated bilaterally, breathing nonlabored. No wheezes crackles or rhonchi. HEART/CARDIOVASCULAR: Regular in rate and rhythm. S1 and S2 positive. ABDOMEN: Abdomen is soft, nontender. Patient has normal bowel sounds. SKIN: There is no rash. Warm and dry. NEURO: No focal motor deficit. Follows command. MUSCULOSKELETAL: No joint effusion or tenderness. EXTRIMITY: No edema, no cyanosis or clubbing. PSYCH: Cooperative. - Constitutional Vitals: Temp Pulse Resp BP Pulse Ox 99.0 F 65 16 90/48 95 10/25/20 07:47 10/25/20 08:18 10/25/20 07:47 10/25/20 07:47 10/25/20 07:47 Plan Activity: advance as tolerated Weight Bearing Status: Weight Bear as Tolerated Diet: low fat, low salt Additional Instructions: Follow-up with vamp seamer in 1 week. Repeat BMP in 1 week. Please be compliant with your psych medications. Patient was advised to seek immediate assistant finance manager if suicidal thought does reoccur Follow up with: PRIMARY MD KULDIP [Primary Care Provider] - 3-5 Days NATA MONTALVO MD [Staff Physician] - 7 Days Prescriptions: Mirtazapine 7.5 mg PO QHS #30 tablet Escitalopram [Lexapro] 10 mg PO DAILY #30 tablet
--- NOTE | 2020-10-25 16:01 | Progress Note ---
Assessment and Plan This is a 25-year-old female with depression, PTSD, anxiety who is admitted for intentional ingestion of ethylene glycol Suicide attempt Patient denies any suicidal ideation at this time Behavioral health consulted Patient started on Lunesta, Lexapro, mirtazapine. Ethylene Glycol Poisoning Ethylene glycol levels undetectable, results reviewed s/p fomepizole 15 mg/kg every 12 hours Acute tubular necrosis Acute Kidney Injury 2/2 Ethylene Glycol Poisoning Nephrology consulted Permacath placed Continue to monitor kidney function Patient will most likely need outpatient dialysis Tuesday. Major depressive disorder Lexapro and mirtazapine restarted Metabolic Acidosis d/t ethylene glycol s/p Fluids with bicarb Leukocytosis. Downtrending Continue antibiotics Hyperkalemia Resolved Hypokalemia Potassium supplementation Constipation Duplex CODE STATUS: Full Disposition: Continue to trend creatinine over the weekend. Case management working on making arrangements for outpatient dialysis if needed. Daily clinical course: 10/15/2020: Patient seen and examined, no overnight events, states that she feels as if she has generalized body pain. No fevers or chills. No nausea vomiting. 10/16/2020: Patient seen and examined, came back from dialysis, somewhat lethargic. No nausea or vomiting tolerating diet. 10/17/2020: Patient has some pain in her chest after permacath placed, controlled with Percocet. No nausea vomiting tolerating diet. 10/18/2020: Patient seen and examined this morning, has minimal nausea, pain controlled. 10/19/2020: Patient seen and examined, pain controlled, finished breakfast. Spoke to the patient pertaining to worsening creatinine 10/20/2020: Patient seen in hemodialysis, states that she has had a bowel movement since Tuesday, tolerating diet. 10/21/20 - todate: Patient clinically stable, no acute issue overnight. Psych cleared for discharge and no need for inpatient psychiatric placement. Need outpatient dialysis set up. Discharge planning: d/c when Outpatient dialysis set up available. 10/25/20; noted nephrology recommendation. Kidney function is improving. Plan to hold dialysis over the weekend. If kidney function is not better, patient will be discharged on Tuesday after dialysis and have to come to the emergency room for dialysis at least twice a week. Unfortunately we have not been able to arrange for outpatient dialysis at the clinic. If kidney function improves, we can discontinue the permacath on Tuesday and patient can be discharged home with outpatient follow-up. Subjective Date of service: 10/25/20 Principal diagnosis: Ethylene glycol poisoning, metabolic acidosis, hyperkalemia, acute kidney Interval history: Patient seen and examined. Medical records and medication list reviewed. No acute event overnight noted by the RN. Patient denies any chest pain or difficulty breathing. Patient is tolerating diet. Discussed plan of care at bedside with patient. Unable to set up outpatient hemodialysis Objective - Exam Narrative Exam: GENERAL: well-developed and well-nourished young female lying on bed appeared to be in no discomfort. HEENT: Normocephalic. Atraumatic. No conjunctival congestion or icterus. Patient has moist mucous membranes. NECK: Supple. Trachea midline. CHEST/LUNGS: Clear to auscultated bilaterally, breathing nonlabored. No wheezes crackles or rhonchi. HEART/CARDIOVASCULAR: Regular in rate and rhythm. S1 and S2 positive. ABDOMEN: Abdomen is soft, nontender. Patient has normal bowel sounds. SKIN: There is no rash. Warm and dry. NEURO: No focal motor deficit. Follows command. MUSCULOSKELETAL: No joint effusion or tenderness. EXTRIMITY: No edema, no cyanosis or clubbing. PSYCH: Cooperative. - Constitutional Vitals: Vital Signs - 12hr 10/25/20 10/25/20 10/25/20 05:05 07:47 08:18 Temperature 98.0 F 99.0 F Pulse Rate 65 62 65 Respiratory 18 16 Rate Blood Pressure 105/61 90/48 O2 Sat by Pulse 94 95 Oximetry - Labs CBC & Chem 7: 10/20/20 05:29 10/24/20 08:38
[2020-10-25] MEDS: MIRTAZAPINE 15 MG TAB PO SCH (21:35)
[2020-10-26 05:52] LABS: Calcium 9.5 mg/dL (8.4-10.2)
[2020-10-26] MEDS: HEPARIN 5,000 UNIT/1 ML VIAL SUB-Q SCH ×3 (06:20→22:50)
[2020-10-26] MEDS: FAMOTIDINE 20 MG TAB PO SCH (09:07)
[2020-10-26] MEDS: ESCITALOPRAM 10 MG TAB PO SCH (09:07)
[2020-10-26] MEDS: MAGNESIUM CHLORIDE ER 64 MG TAB PO SCH (09:10)
[2020-10-26] MEDS: oxyCODONE /ACETAMINOPHEN 5-325MG TAB PO PRN ×2 (11:30→16:30)
--- NOTE | 2020-10-26 15:14 | Progress Note ---
Assessment and Plan This is a 25-year-old female with depression, PTSD, anxiety who is admitted for intentional ingestion of ethylene glycol Suicide attempt Patient denies any suicidal ideation at this time Behavioral health consulted Patient started on Lunesta, Lexapro, mirtazapine. Ethylene Glycol Poisoning Ethylene glycol levels undetectable, results reviewed s/p fomepizole 15 mg/kg every 12 hours Acute tubular necrosis Acute Kidney Injury 2/2 Ethylene Glycol Poisoning Nephrology consulted Permacath placed Continue to monitor kidney function Patient will most likely need outpatient dialysis Tuesday. Major depressive disorder Lexapro and mirtazapine restarted Metabolic Acidosis d/t ethylene glycol s/p Fluids with bicarb Leukocytosis. Downtrending Continue antibiotics Hyperkalemia Resolved Hypokalemia Potassium supplementation Constipation Duplex CODE STATUS: Full Disposition: Continue to trend creatinine over the weekend. Case management working on making arrangements for outpatient dialysis if needed. Daily clinical course: 10/15/2020: Patient seen and examined, no overnight events, states that she feels as if she has generalized body pain. No fevers or chills. No nausea vomiting. 10/16/2020: Patient seen and examined, came back from dialysis, somewhat lethargic. No nausea or vomiting tolerating diet. 10/17/2020: Patient has some pain in her chest after permacath placed, controlled with Percocet. No nausea vomiting tolerating diet. 10/18/2020: Patient seen and examined this morning, has minimal nausea, pain controlled. 10/19/2020: Patient seen and examined, pain controlled, finished breakfast. Spoke to the patient pertaining to worsening creatinine 10/20/2020: Patient seen in hemodialysis, states that she has had a bowel movement since Tuesday, tolerating diet. 10/21/20 - todate: Patient clinically stable, no acute issue overnight. Psych cleared for discharge and no need for inpatient psychiatric placement. Need outpatient dialysis set up. Discharge planning: d/c when Outpatient dialysis set up available. 10/25/20; noted nephrology recommendation. Kidney function is improving. Plan to hold dialysis over the weekend. If kidney function is not better, patient will be discharged on Tuesday after dialysis and have to come to the emergency room for dialysis at least twice a week. Unfortunately we have not been able to arrange for outpatient dialysis at the clinic. If kidney function improves, we can discontinue the permacath on Tuesday and patient can be discharged home with outpatient follow-up. 10/26/20: Creatinine level continue to improve. We will repeat BMP tomorrow if creatinine remains stable plan to remove PermCath and discharge patient home with outpatient follow-up. Subjective Date of service: 10/26/20 Principal diagnosis: Ethylene glycol poisoning, metabolic acidosis, hyperkalemia, acute kidney Interval history: Patient seen and examined. Medical records and medication list reviewed. No acute event overnight noted by the RN. Patient denies any chest pain or difficulty breathing. Patient is tolerating diet. Discussed plan of care at bedside with patient. Objective - Exam Narrative Exam: GENERAL: well-developed and well-nourished young female lying on bed appeared to be in no discomfort. HEENT: Normocephalic. Atraumatic. No conjunctival congestion or icterus. Patient has moist mucous membranes. NECK: Supple. Trachea midline. CHEST/LUNGS: Clear to auscultated bilaterally, breathing nonlabored. No wheezes crackles or rhonchi. HEART/CARDIOVASCULAR: Regular in rate and rhythm. S1 and S2 positive. ABDOMEN: Abdomen is soft, nontender. Patient has normal bowel sounds. SKIN: There is no rash. Warm and dry. NEURO: No focal motor deficit. Follows command. MUSCULOSKELETAL: No joint effusion or tenderness. EXTRIMITY: No edema, no cyanosis or clubbing. PSYCH: Cooperative. - Constitutional Vitals: Vital Signs - 12hr 10/26/20 10/26/20 10/26/20 03:48 07:47 08:11 Temperature 97.3 F L 97.9 F Pulse Rate 71 72 70 Respiratory 17 16 Rate Blood Pressure 97/54 104/70 O2 Sat by Pulse 95 94 Oximetry 10/26/20 11:41 Temperature 98.2 F Pulse Rate 117 H Respiratory 16 Rate Blood Pressure 129/83 O2 Sat by Pulse 96 Oximetry - Labs CBC & Chem 7: 10/20/20 05:29 10/27/20 08:33 Labs: Abnormal lab results 10/26/20 Range/Units 04:36 Creatinine 1.9 H (0.6-1.2) mg/dL
--- NOTE | 2020-10-26 15:29 | Progress Note ---
Assessment and Plan - Patient Problems (1) Ethylene glycol poisoning Current Visit: Yes Status: Acute Qualifiers: Encounter type: initial encounter Injury intent: intentional self-harm Qualified Code(s): T52.8X2A - Toxic effect of other organic solvents, intentional self-harm, initial encounter Plan to address problem: Patient was started on bicarbonate drip, Fomepizole. Dialysis was initiated on presentation due to severe metabolic acidosis. Hemodialysis daily. Ethylene glycol level became undetectable on fomepizole and bicarbonate drip were stopped. Kidney function also appears to be improving (2) Acute kidney failure Current Visit: Yes Status: Acute Plan to address problem: Acute kidney failure toxin induced. Kidney function is improving. We will hold dialysis over the weekend. If kidney function is not better, patient will be discharged on Tuesday after dialysis and have to come to the emergency room for dialysis at least twice a week. Unfortunately we have not been able to arrange for outpatient dialysis at the clinic. Kidney function is now improving. Follow-up kidney disease again in the morning and if stable or better, consult vascular surgeon/interventional radiologist to DC permacat. Patient can then be discharged home with follow-up in the office. (3) Hyperkalemia Current Visit: Yes Status: Acute Plan to address problem: Potassium has improved with dialysis. Potassium is now normal. Follow-up potassium in the morning (4) Leukocytosis Current Visit: Yes Status: Acute Plan to address problem: Probably stress induced. Cultures were negative. Off of antibiotics (5) Metabolic acidosis due to ethylene glycol Current Visit: Yes Status: Acute Plan to address problem: Bicarbonate is now normal. (6) MDD (major depressive disorder) Current Visit: Yes Status: Acute Plan to address problem: Antidepressants resumed per Psychiatrist. Continue to follow-up with psychiatrist Subjective Date of service: 10/26/20 Principal diagnosis: Ethylene glycol poisoning, metabolic acidosis, hyperkalemia, acute kidney Interval history: Patient seen lying in bed. No complaints overnight. No vomiting. No shortness of breath. Objective - Exam Narrative Exam: Young lady lying in bed in no acute distress HEENT: NCAT, Neck: Supple, no venous distention CVS: S1S2 RRR with no murmur, rub or gallop Chest: Clear to auscultation Abdomen: Protuberant, soft, nontender, no organomegaly, bowel sounds are present Extremities: No edema Genitourinary deferred Skin warm and dry Neuro: Awake, alert no focal deficits - Vital Signs Vital signs: Vital Signs - 12hr 10/26/20 10/26/20 10/26/20 03:48 07:47 08:11 Temperature 97.3 F L 97.9 F Pulse Rate 71 72 70 Respiratory 17 16 Rate Blood Pressure 97/54 104/70 O2 Sat by Pulse 95 94 Oximetry 10/26/20 11:41 Temperature 98.2 F Pulse Rate 117 H Respiratory 16 Rate Blood Pressure 129/83 O2 Sat by Pulse 96 Oximetry - Lab 10/20/20 05:29 10/26/20 04:36 Most recent lab results ABG pH 7.096 pH Units (7.350-7.450) L* 10/14/20 01:30 ABG pCO2 8.1 mm Hg 10/14/20 01:30 ABG pO2 125.0 mm Hg (80.0-90.0) H 10/14/20 01:30 ABG HCO3 2.4 mmol/L (20.0-26.0) L 10/14/20 01:30 ABG O2 Saturation 97.8 % (95.0-99.0) 10/14/20 01:30 Calcium 9.5 mg/dL (8.4-10.2) 10/26/20 04:36 Phosphorus 3.80 mg/dL (2.5-4.5) 10/21/20 17:14 Magnesium 2.00 mg/dL (1.7-2.3) 10/21/20 17:14 Medications & Allergies - Medications Allergies/Adverse Reactions: Allergies No Known Allergies Allergy (Unverified 06/29/13 00:00) Home Medications: Home Medications Medication Instructions Recorded Confirmed Last Taken Type Eszopiclone [Lunesta] 2 mg PO DAILY 10/14/20 10/14/20 2 Weeks Ago History ~09/30/20 Lexapro 7.5 mg PO DAILY 10/14/20 10/14/20 2 Weeks Ago History ~09/30/20 Remeron 10 mg PO DAILY 10/14/20 10/14/20 2 Weeks Ago History ~09/30/20 Escitalopram [Lexapro] 10 mg PO DAILY #30 tablet 10/19/20 Unknown Rx Eszopiclone [Lunesta] 2 mg PO QHS #30 tablet 10/19/20 Unknown Rx Mirtazapine 7.5 mg PO QHS #30 tablet 10/19/20 Unknown Rx Active Medications: Generic Name Dose Route Start Last Admin Trade Name Freq PRN Reason Stop Dose Admin Acetaminophen 650 mg 10/14/20 00:31 10/24/20 13:24 Acetaminophen 325 Mg Tab PO 650 mg Q4H PRN Administration Pain MILD(1-3)/Fever >100.5/TAYLOR Bisacodyl 10 mg 10/20/20 13:08 Bisacodyl 5 Mg Tab PO QDAY PRN Constipation Escitalopram Oxalate 10 mg 10/18/20 13:00 10/26/20 09:07 Escitalopram 10 Mg Tab PO 10 mg QDAY MINH Administration Famotidine 20 mg 10/18/20 11:00 10/26/20 09:07 Famotidine 20 Mg Tab PO 20 mg DAILY MINH Administration Heparin Sodium (Porcine) 5,000 unit 10/14/20 06:00 10/26/20 06:20 Heparin 5,000 Unit/1 Ml Vial SUB-Q 5,000 unit Q8HR MINH Administration Sodium Chloride 100 mls @ 999 mls/hr 10/20/20 08:00 Nacl 0.9% IV PHANI PRN Hypotension Magnesium Chloride 64 mg 10/17/20 11:00 10/26/20 09:10 Magnesium Chloride Er 64 Mg Tab PO 64 mg QDAY MINH Administration Mirtazapine 7.5 mg 10/18/20 22:00 10/25/20 21:35 Mirtazapine 15 Mg Tab PO 7.5 mg QHS MINH Administration Ondansetron HCl 4 mg 10/14/20 00:31 10/24/20 13:24 Ondansetron 4 Mg/2 Ml Inj IV 4 mg Q8H PRN Administration Nausea And Vomiting Oxycodone/Acetaminophen 1 tab 10/16/20 16:00 10/22/20 21:22 Oxycodone /Acetaminophen 5-325mg Tab PO 1 tab Q6H PRN Administration Pain, Moderate (4-6) Sodium Chloride 10 ml 10/14/20 10:00 10/26/20 09:08 Sodium Chloride 0.9% 10 Ml Flush Syringe IV 10 ml BID MINH Administration Sodium Chloride 10 ml 10/14/20 00:31 Sodium Chloride 0.9% 10 Ml Flush Syringe IV PRN PRN LINE FLUSH Zolpidem Tartrate 5 mg 10/18/20 12:53 Zolpidem 5 Mg Tab PO QHS PRN Insomnia
[2020-10-26] MEDS: MIRTAZAPINE 15 MG TAB PO SCH (22:50)
[2020-10-27] MEDS: HEPARIN 5,000 UNIT/1 ML VIAL SUB-Q SCH ×2 (06:50→14:00)
[2020-10-27 07:57] VITALS: BP 96/56
--- NOTE | 2020-10-27 08:48 | Progress Note ---
Assessment and Plan - Patient Problems (1) Ethylene glycol poisoning Current Visit: Yes Status: Acute Qualifiers: Encounter type: initial encounter Injury intent: intentional self-harm Qualified Code(s): T52.8X2A - Toxic effect of other organic solvents, intentional self-harm, initial encounter Plan to address problem: Patient was started on bicarbonate drip, Fomepizole. Dialysis was initiated on presentation due to severe metabolic acidosis. She was on Hemodialysis daily. Ethylene glycol level became undetectable on fomepizole and bicarbonate drip were stopped. Kidney function is now improving (2) Acute kidney failure Current Visit: Yes Status: Acute Plan to address problem: Acute kidney failure toxin induced. Kidney function is improving. We will hold dialysis over the weekend. If kidney function is not better, patient will be discharged on Tuesday after dialysis and have to come to the emergency room for dialysis at least twice a week. Unfortunately we have not been able to arrange for outpatient dialysis at the clinic. Kidney function is now improving. Follow-up kidney indices again this morning and if stable or better, consult vascular surgeon/interventional radiologist to DC permacath. Patient can then be discharged home with follow-up in the office. (3) Hyperkalemia Current Visit: Yes Status: Acute Plan to address problem: Potassium has improved with dialysis. Potassium is now normal. Follow-up potassium (4) Leukocytosis Current Visit: Yes Status: Acute Plan to address problem: Probably stress induced. Cultures were negative. Off of antibiotics (5) Metabolic acidosis due to ethylene glycol Current Visit: Yes Status: Acute Plan to address problem: Bicarbonate is now normal. (6) MDD (major depressive disorder) Current Visit: Yes Status: Acute Plan to address problem: Antidepressants resumed per Psychiatrist. Continue to follow-up with psychiatrist Subjective Date of service: 10/27/20 Principal diagnosis: Ethylene glycol poisoning, metabolic acidosis, hyperkalemia, acute kidney Interval history: Patient seen lying in bed. No complaints overnight. No nausea or vomiting. No shortness of breath. Objective - Exam Narrative Exam: Young lady lying in bed in no acute distress HEENT: NCAT, Neck: Supple, no venous distention CVS: S1S2 RRR with no murmur, rub or gallop Chest: Clear to auscultation Abdomen: Protuberant, soft, nontender, no organomegaly, bowel sounds are present Extremities: No edema Genitourinary deferred Skin warm and dry Neuro: Awake, alert no focal deficits - Vital Signs Vital signs: Vital Signs - 12hr 10/26/20 10/26/20 10/27/20 22:00 22:53 03:55 Temperature 98.2 F 122.0 F H Pulse Rate 89 69 66 Respiratory 17 17 Rate Blood Pressure 129/87 98/58 O2 Sat by Pulse 95 95 Oximetry 10/27/20 07:25 Temperature 98.7 F Pulse Rate 65 Respiratory 18 Rate Blood Pressure 96/56 O2 Sat by Pulse 95 Oximetry - Lab 10/20/20 05:29 10/26/20 04:36 Most recent lab results ABG pH 7.096 pH Units (7.350-7.450) L* 10/14/20 01:30 ABG pCO2 8.1 mm Hg 10/14/20 01:30 ABG pO2 125.0 mm Hg (80.0-90.0) H 10/14/20 01:30 ABG HCO3 2.4 mmol/L (20.0-26.0) L 10/14/20 01:30 ABG O2 Saturation 97.8 % (95.0-99.0) 10/14/20 01:30 Calcium 9.5 mg/dL (8.4-10.2) 10/26/20 04:36 Phosphorus 3.80 mg/dL (2.5-4.5) 10/21/20 17:14 Magnesium 2.00 mg/dL (1.7-2.3) 10/21/20 17:14 Medications & Allergies - Medications Allergies/Adverse Reactions: Allergies No Known Allergies Allergy (Unverified 06/29/13 00:00) Home Medications: Home Medications Medication Instructions Recorded Confirmed Last Taken Type Eszopiclone [Lunesta] 2 mg PO DAILY 10/14/20 10/14/20 2 Weeks Ago History ~09/30/20 Lexapro 7.5 mg PO DAILY 10/14/20 10/14/20 2 Weeks Ago History ~09/30/20 Remeron 10 mg PO DAILY 10/14/20 10/14/20 2 Weeks Ago History ~09/30/20 Escitalopram [Lexapro] 10 mg PO DAILY #30 tablet 10/19/20 Unknown Rx Eszopiclone [Lunesta] 2 mg PO QHS #30 tablet 10/19/20 Unknown Rx Mirtazapine 7.5 mg PO QHS #30 tablet 10/19/20 Unknown Rx Active Medications: Generic Name Dose Route Start Last Admin Trade Name Freq PRN Reason Stop Dose Admin Acetaminophen 650 mg 10/14/20 00:31 10/24/20 13:24 Acetaminophen 325 Mg Tab PO 650 mg Q4H PRN Administration Pain MILD(1-3)/Fever >100.5/TAYLOR Bisacodyl 10 mg 10/20/20 13:08 Bisacodyl 5 Mg Tab PO QDAY PRN Constipation Escitalopram Oxalate 10 mg 10/18/20 13:00 10/26/20 09:07 Escitalopram 10 Mg Tab PO 10 mg QDAY MINH Administration Famotidine 20 mg 10/18/20 11:00 10/26/20 09:07 Famotidine 20 Mg Tab PO 20 mg DAILY MINH Administration Heparin Sodium (Porcine) 5,000 unit 10/14/20 06:00 10/27/20 06:50 Heparin 5,000 Unit/1 Ml Vial SUB-Q 5,000 unit Q8HR MINH Administration Sodium Chloride 100 mls @ 999 mls/hr 10/20/20 08:00 Nacl 0.9% IV PHANI PRN Hypotension Magnesium Chloride 64 mg 10/17/20 11:00 10/26/20 09:10 Magnesium Chloride Er 64 Mg Tab PO 64 mg QDAY MINH Administration Mirtazapine 7.5 mg 10/18/20 22:00 10/26/20 22:50 Mirtazapine 15 Mg Tab PO 7.5 mg QHS MINH Administration Ondansetron HCl 4 mg 10/14/20 00:31 10/24/20 13:24 Ondansetron 4 Mg/2 Ml Inj IV 4 mg Q8H PRN Administration Nausea And Vomiting Oxycodone/Acetaminophen 1 tab 10/16/20 16:00 10/26/20 16:30 Oxycodone /Acetaminophen 5-325mg Tab PO 1 tab Q6H PRN Administration Pain, Moderate (4-6) Sodium Chloride 10 ml 10/14/20 10:00 10/26/20 22:50 Sodium Chloride 0.9% 10 Ml Flush Syringe IV 10 ml BID MINH Administration Sodium Chloride 10 ml 10/14/20 00:31 Sodium Chloride 0.9% 10 Ml Flush Syringe IV PRN PRN LINE FLUSH Zolpidem Tartrate 5 mg 10/18/20 12:53 Zolpidem 5 Mg Tab PO QHS PRN Insomnia
[2020-10-27 08:56] LABS: Calcium 9.6 mg/dL (8.4-10.2)
[2020-10-27] MEDS: ESCITALOPRAM 10 MG TAB PO SCH (12:10)
[2020-10-27] MEDS: FAMOTIDINE 20 MG TAB PO SCH (12:10)
[2020-10-27] MEDS: MAGNESIUM CHLORIDE ER 64 MG TAB PO SCH (12:10)
[2020-10-27] MEDS ORDERED: LIDOCAINE (1%) 10 MG/1 ML VIAL 20 ML MDV ONE (14:48)
--- NOTE | 2020-10-27 15:23 | Operative Report ---
Operative Report Operative Report: EXAM: Tunneled catheter removal DATE: 10/27/2020 INDICATION: PermCath removal, end of therapy, no further requirement. MEDICATIONS: Please see nursing report for full details. MD ALLERGY IMMUNOLOGY: KAM MARCUM MD CONTRAST: None PROCEDURE: The risks, benefits, and alternatives were discussed; written informed consent was obtained. The patient was positioned with the head towards the contralateral side. The tunneled catheter was prepped and draped in a sterile fashion. Lidocaine was infiltrated at the dermatotomy site. Heparin was withdrawn from both lumens. Using a hemostat, blunt dissection was performed and the cuff was extracted. The catheter was extracted and pressure was held at the venotomy and dermatotomy site until hemostasis was achieved. Sterile bandage was then applied. The patient tolerated the procedure without issue. FINDINGS: Successful removal of the tunneled catheter. IMPRESSION: Successful removal of the right internal jugular dual-lumen hemodialysis tunneled catheter.
[2020-10-27] MEDS ORDERED: SODIUM CHLORIDE 0.9% 500 ML 500 ML IV ONE (16:55)
== END 2020-10-27 18:00 | disposition home or self-care (01) | DRG 673 ==
LOC: ED 21:15 → CC1 23:42 → 4A 10-14 18:30
PROVIDERS: ADMIT Hospitalist; ATTEND Internal Medicine
PROC: 06HM33Z Insertion of Infusion Device into Right Femoral Vein, Percutaneous Approach (ICD-10-PCS; principal; 2020-10-14)
PROC: 0JH63XZ Insertion of Tunneled Vascular Access Device into Chest Subcutaneous Tissue and Fascia, Percutaneous Approach (ICD-10-PCS; 2020-10-16)
PROC: 02H633Z Insertion of Infusion Device into Right Atrium, Percutaneous Approach (ICD-10-PCS; 2020-10-16)
PROC: B5181ZA Fluoroscopy of Superior Vena Cava using Low Osmolar Contrast, Guidance (ICD-10-PCS; 2020-10-16)
PROC: B548ZZA Ultrasonography of Superior Vena Cava, Guidance (ICD-10-PCS; 2020-10-16)
PROC: 5A1D70Z Performance of Urinary Filtration, Intermittent, Less than 6 Hours Per Day (ICD-10-PCS; 2020-10-22)
PROC: 5A1D70Z Performance of Urinary Filtration, Intermittent, Less than 6 Hours Per Day (ICD-10-PCS; 2020-10-24)
PROC: 0JPV3XZ Removal of Tunneled Vascular Access Device from Upper Extremity Subcutaneous Tissue and Fascia, Percutaneous Approach (ICD-10-PCS; 2020-10-27)
DX: N17.0 Acute kidney failure with tubular necrosis (principal); G93.41 Metabolic encephalopathy; E87.2 Acidosis; T52.8X2A Toxic effect of other organic solvents, intentional self-harm, initial encounter; T50.901A Poisoning by unspecified drugs, medicaments and biological substances, accidental (unintentional), initial encounter; E87.5 Hyperkalemia; F32.9 Major depressive disorder, single episode, unspecified; T52.3X1A Toxic effect of glycols, accidental (unintentional), initial encounter; D72.829 Elevated white blood cell count, unspecified; F41.9 Anxiety disorder, unspecified; Z20.822 Contact with and (suspected) exposure to COVID-19; F43.10 Post-traumatic stress disorder, unspecified; E87.6 Hypokalemia; E83.39 Other disorders of phosphorus metabolism; E83.42 Hypomagnesemia; K59.00 Constipation, unspecified; Y92.89 Other specified places as the place of occurrence of the external cause
CPT/HCPCS: 36415; 36558; 77001; 80048; 80053; 80074; 80307; 80320; 81001; 82693; 82803; 82805; 83735; 83930; 84100; 84703; 85007; 85025; 85027; 93005; G0378; C1750; G0480; J0696; J1451; J1644; J2250; J2405; J3010; J7030; J7040; J7050; J7070; J7120; U0003